=== PATIENT | female | born 1970 | race Caucasian/White ===

== ENCOUNTER → 2024-09-16 | Outpatient (CLI) | payer OTHER, SELFPAY ==
[2024-09-16 17:48] LABS: Absolute Lymphocyte Count 2.15 X10^3/uL (0.83-4.51); Basophil# 0.04 X10^3/uL; Basophil% 0.6 % (0-1); Eosinophil# 0.19 X10^3/uL; Eosinophils% 2.7 % (0-5); Hematocrit 41.1 % (37-47); Hemoglobin 13.8 g/dL (12.0-15.0); Lymphocyte # 2.15 X10^3/ul (0.83-4.51); Mean Corp Hgb Conc 33.6 g/dL (32-36); Mean Corpuscular Hgb 30.1 pg (27.0-32.0); Mean Corpuscular Volume 89.5 fL (81-99); Mean Platelet Vol. 8.8 fl (6.2-12.0); Monocyte# 0.51 X10^3/uL; Monocyte% 7.4 % (0-10); NRBC Flagged by Analyzer 0 % (0-5); Neutrophil # 4.03 X10^3/uL (2.7-7.7); Neutrophil % 58.2 % (47-70); Platelet Count 306 K/mm3 (150-450); RBC Distribution Width CV 12.6 % (11.6-14.6); Red Blood Count 4.59 M/mm3 (4.2-5.4); White Blood Count 6.9 K/mm3 (4.4-11.0)
[2024-09-16 18:08] LABS: Erythrocyte Sedimentation Rate 2 mm/hr (0-30)
[2024-09-16 18:32] LABS: ALB/GLOB Ratio 1.8 RATIO (0.9-2.4); AST(SGOT) 25 U/L (<=31); Alanine Aminotransfer ALT/SGPT 18 U/L (<=34); Albumin, Serum 4.6 g/dL (3.5-5.0); Alkaline Phosphatase 60 U/L (35-104); Anion Gap 13 (5-15); BUN 12 mg/dL (4-19); BUN/Creat Ratio 16.8 RATIO (10-20); Calcium,Total 9.8 mg/dL (7.6-11.0); Carbon Dioxide 24.4 mmol/L (21.0-32.0); Chloride 103 mmol/L (98-108); Creatinine, Serum 0.71 mg/dL (0.70-1.20); EST Glomerular Filtration Rate 101 (>60); Globulin 2.6 g/dL (2.2-4.2); Glucose 89 mg/dL (70-99); Potassium 3.8 mmol/L (3.3-5.1); Protein, Total 7.2 g/dL (5.9-8.4); Sodium Level 141 mmol/L (133-145); Thyroid Stim Hormone (TSH) 0.978 uIU/mL (0.300-4.200); Total Bilirubin 0.55 mg/dL (0.00-1.30); Vitamin B12 586 pg/mL (180-914)
[2024-09-16 18:54] LABS: CRP < 3.00 mg/L (0.0-3.0)
[2024-09-16 19:39] LABS: LDH 184 U/L (84-246)
[2024-09-19 14:08] LABS: EBV Acute VCA IgM < 36.0 U/mL (0.0-35.9); EBV Nuclear Antigen IgG > 600.0 U/mL (0.0-17.9); EBV-VCA IgG 89.4 U/mL (0.0-17.9)
== END | disposition home or self-care (01) ==
LOC: MTLAB 14:17
PROVIDERS: PCP Internal Medicine; Referring Provider Internal Medicine; Visit Provider Internal Medicine
DX: R53.83 Other fatigue (principal); I89.0 Lymphedema, not elsewhere classified
CPT/HCPCS: 36415; 80053; 82607; 83615; 84439; 84443; 84481; 85025; 85652; 86140; 86664; 86665

== ENCOUNTER → 2025-01-27 | Outpatient (CLI) | payer OTHER, SELFPAY ==
--- NOTE | 2025-01-27 13:32 | MRI_ITS ---
PROCEDURE: BRAIN W/WO CONTRAST 01/27/2025 REASON FOR EXAM: CHRONIC HEADACHES TECHNIQUE: Multiplanar and multisequential MRI of the brain was performed without and with IV gadolinium based contrast administration. CONTRAST: Clariscan VOLUME: 12 mL COMPARISON: None. FINDINGS: Ventricular and sulcal size and configuration are within normal limits. No intracranial mass lesion or pathologic enhancement. No evidence of intracranial hemorrhage, extra-axial collection, or other acute abnormality. Prominent benign perivascular space in the left inferior basal ganglia region. Preserved major intracranial vascular flow voids. Few scattered small foci of T2 FLAIR hyperintensity in the supratentorial white matter, which are nonspecific but commonly seen in the setting of migraine headaches, or minimal leukoaraiosis. Orbital contents appear normal. Mild peripheral mucosal thickening throughout the paranasal sinuses. No mastoid effusions. Grossly unremarkable skull base and calvarium. MRI/Brain W/WO Contrast IMPRESSION: No acute intracranial abnormality. No mass or pathologic enhancement. Few scattered foci of T2 FLAIR hyperintensity in the cerebral white matter, non specific but commonly seen in the setting of migraine headaches. Reading Location: [id number]
== END | disposition home or self-care (01) ==
LOC: MRI 13:23
PROVIDERS: PCP Internal Medicine; Referring Provider Internal Medicine; Visit Provider Internal Medicine
DX: R51.9 Headache, unspecified (principal)
CPT/HCPCS: 70553; A9575

== ENCOUNTER → 2025-06-20 | Outpatient (CLI) | payer OTHER, SELFPAY ==
--- NOTE | 2025-06-20 16:04 | BD_ITS ---
PROCEDURE: DEXA BONE DENSITY STUDY 06/20/2025 REASON FOR EXAM: F, age 54 y/o . Patient is postmenopausal TECHNIQUE: Procedure Code: BDDBD Modality: DX Procedure: DEXA BONE DENSITY STUDY COMPARISON: None FINDINGS: BMD and T-SCORES Lumbar spine: 0.958 g/cm2, T-score -0.8 Levels: L1 through L4 Left femoral neck: 0.594 g/cm2, T-score -2.3 Left total hip: 0.735 g/cm2, T-score -1.7 Right femoral neck: 0.603 g/cm2, T-score -2.2 Right total hip: 0.740 g/cm2, T-score -1.7 The World Health Organization has defined the following categories based on bone density: Normal bone density: T-score equal to or greater than -1.0 Osteopenia: T-score between -1.0 and -2.5 Osteoporosis: T-score equal to or less than -2.5 FRAX (or Comparable) Fracture Risk Assessment: 10 Year Probability of Fracture: Major Osteoporotic Fracture: 12% Hip Fracture: 2.2% (Note: FRAX is not to be reported in setting of normal range bone density, osteoporosis on DEXA, known history of osteoporosis, prior osteoporotic hip or vertebral fracture, or for any patient undergoing pharmacological treatment for bone loss.) The National Osteoporosis Foundation (NOF) recommends pharmacological treatment for patients with a FRAX 10-year risk of 3% or higher for a hip fracture, or 20% or higher for a major osteoporotic fracture, to prevent osteoporosis and reduce fracture risk. The patient does meet the pharmacological treatment recommendations for prevention of osteoporosis. BD/Dexa Bone Density Study IMPRESSION: OSTEOPENIA. Recommend follow-up in 1 year. Reading Location: [id number]
== END | disposition home or self-care (01) ==
LOC: OPBD 16:02
PROVIDERS: PCP Internal Medicine; Referring Provider Internal Medicine; Visit Provider Internal Medicine
DX: Z13.820 Encounter for screening for osteoporosis (principal); Z78.0 Asymptomatic menopausal state
CPT/HCPCS: 77080

== ENCOUNTER → 2025-06-20 | Outpatient (CLI) | payer OTHER, SELFPAY ==
--- OUTSIDE RECORDS SUMMARY | 2025-06-20 17:31 | XMS RPT_ITS | CCD ---
Author Organization [facility] Care Team Providers Care Dermatology Specialist Name Role Phone Nola Galeas Unavailable Unavailable Unavailable Dr. Enrrique Elizabeth Attending Unavailable Maximilian, Dr. Edwards Referring Unavailable GUDELIA, Dr. NOLA MILES Primary Care UnavailHONG Lara Attending Unavailable HONG MANZO Referring Unavailable GUDELIA, Dr. NOLA MILES Primary Care Unavailabl e GUDELIA, Dr. NOLA MILES Attending Unavailabl e GUDELIA, Dr. NOLA MILES Referring Unavailabl e RONZA, Dr. NOLA MILES Primary Care Unavailabl e GUDELIA, Dr. NOLA MILES Attending Unavailabl e GUDELIA, Dr. NOLA MILES Referring Unavailabl e GUDELIA, Dr. NOLA MILES Primary Care Unavailabl e GUDELIA, Dr. NOLA MILES Attending Unavailabl e GUDELIA, Dr. NOLA MILES Referring Unavailabl e RONRICHARDK, Dr. NOLA MILES Primary Care Unavailabl e GUDELIA, Dr. NOLA MILES Attending Unavailabl e GUDELIA, Dr. NOLA MILES Primary Care UnavailHONG Lara Attending Unavailable HONG MANZO Referring Unavailable GUDELIA, Dr. NOLA MILES Primary Care Unavailabl e RonNola negrete DO Primary Care Provider [phone] Nola Galeas DO Unavailable NOLA GALEAS Attending Unavailable NOLA GALEAS Referring Unavailable NOLA GALEAS Primary Care Unavailable NOLA GALEAS Referring Unavailable NOLA GALEAS Primary Care Unavailable NOLA GALEAS Primary Care Unavailable Michael MEDEL, Dr. Dlecid Primary Care Provider [phone] Richi Rodriguez DO Attending Provider Fast DO, Dr. Delcid Referring Provider NOLA GALEAS Attending Unavailable NOLA GALEAS Primary Care Unavailable Fast DO, Dr. Delcid Primary Care Provider [phone] Fast DO, Dr. Delcid Attending Provider [phone] Fast DO, Dr. Delcid Referring Provider Fast DO, Richi Ponce Primary Care Provider [phone] ANGEL, VJ Referring Unavailable ANGEL, VJ Attending Unavailable ANGEL, VJ Referring Unavailable ANGEL, VJ Attending Unavailable FAST, RICHI Primary Care Unavailable Fast, Richi Primary Care Unavailable Fast, Richi Attending Unavailable Fast, Richi Referring Unavailable Fast, Richi Attending Unavailable Fast, Richi Referring Unavailable Fast, Richi Primary Care Unavailable Fast, Richi Attending Unavailable Fast, Richi Referring Unavailable Fast, Richi Primary Care Unavailable Medications Current Medications Medication Drug Class(es) Dates Sig (Normalized) Sig (Original) hydroCHLOROthiazide 12.5 mg oral capsule (20 sources) Thiazide Diuretic Start: 4 End: 4 take 1 capsule by mouth once daily hydroCHLOROthiazide (Microzide) 12.5 mg capsule Indications: Benign hypertension Take 1 capsule (12.5 mg) by mouth once daily. 90 capsule 1 04/01/2024 Active Start: 06-10-2023 take 1 capsule by [facility] once daily hydroCHLOROthiazide (Microzide) 12.5 mg capsule Indications: Benign hypertension Take 1 capsule (12.5 mg) by mouth once daily. 90 capsule 1 06/10/2023 Active Start: 12-18-2020 End: 11-26-2022 take 1 capsule by mouth once daily hydroCHLOROthiazide (Microzide) 12.5 mg capsule Indications: Benign hypertension Take 1 capsule (12.5 mg) by mouth once daily. 90 capsule 1 11/26/2022 Active multivitamin tablet (5 sources) multivitamin tab let Take by mouth. Active multivitamin tab let Take by mouth. 0 Active omeprazole 20 mg delayed release oral tablet (5 sources) Proton Pump Inhibitor take 1 tablet by mouth once daily omeprazole (PriLOSEC) 20 mg tablet,delayed release (DR/EC) EC tablet Indications: gastroesophageal reflux disease Take 1 tablet (20 mg) by mouth once daily. Active tretinoin 0.5 mg/ml topical cream (16 sources) Retinoid Start: tretinoin (Retin-A) 0.05 % cream apply as directed BY PHYSICIAN 12/10/2021 Active Start: 12-10-2021 Tretinoin 0.05 % External Cream apply as directed BY PHYSICIAN Quantity: 45 Refills: 0 Ordered: 14-Dec-2021 DO Start : 10-Dec-2021 Active Completed/Discontinued Medications Medication Drug Class(es) Dates Sig (Normalized) Sig (Original) cephalexin 500 mg oral capsule (9 sources) Cephalosporin Antibacterial Start: 12-04-2021 take 1 capsule by mouth once daily Cephalexin 500 MG Oral Capsule TAKE 1 CAPSULE EVERY 12 HOURS DAILY. 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, Chaseun Start : 20-Oct-2021 Active ibuprofen 600 mg oral tablet (1 source) Nonsteroidal Anti-inflammatory Drug Start: 03-02-2021 take 1 tablet by mouth three times daily at mealtime Ibuprofen 600 MG Oral Tablet take 1 tablet three times a day with meals Quantity: 30 Refills: 0 Ordered: 02-Mar-2021 DO Start : 02-Mar-2021 Complete Multi-Vitamin TABS (20 sources) Multi-Vitamin TA BS Quantity: 0 Refills: 0 Ordered: 22-Oct-2020 DO Active nitrofurantoin, macrocrystals 25 mg / nitrofurantoin, monohydrate 75 mg oral capsule (9 sources) Nitrofuran Antibacterial Start: 09-29-2021 take 1 capsule by mouth twice daily Nitrofurantoin Monohyd Macro 100 MG Oral Capsule 1 pill twice a day until gone Quantity: 14 Refills: 0 Ordered: 29-Sep-2021 Hong Manzo DO Start : 29-Sep-2021 Active phenazopyridine hydrochloride 200 mg oral tablet (7 sources) Start: 10-17-2021 take 1 tablet by mouth three times daily after mealtime as needed Pyridium 200 MG Oral Tablet TAKE 1 TABLET 3 TIMES DAILY AFTER MEALS NEEDED Quantity: 6 Refills: 0 Ordered: 17-Oct-2021 Enrrique Elizabeth MD Start : 17-Oct-2021 Active Problems Active Problems Problem Classification Problem Date Documented Date Episodic/Chronic Deficiency and other anemia (20 sources) Anemia; Translations: [Anemia, unspecified] Episodic Esophageal disorders (6 sources) Gastroesophageal reflux disease without esophagitis; Translations: [Gastro-esophageal reflux disease without esophagitis] Onset: 11-26-2022 11-26-2022 Chronic Essential hypertension (20 sources) Benign hypertension; Translations: [Benign essential hypertension] Onset: 11-26-2022 11-26-2022 Chronic Genitourinary symptoms and ill-defined conditions (20 sources) Dysuria; Translations: [Dysuria] Episodic Headache; including migraine (1 source) Headache; including migraine; Translations: [Headache, unspecified] Onset: 02-02-2025 Immunizations and screening for infectious disease (20 sources) Tuberculosis screening status; Translations: [Screening examination for pulmonary tuberculosis] Onset: 05-19-2022 Episodic Nonspecific chest pain (20 sources) Chest pain; Translations: [Chest pain, unspecified] Episodic Other circulatory disease (20 sources) Elevated blood-pressure reading without diagnosis of hypertension; Translations: [Elevated blood pressure reading without diagnosis of hypertension] Episodic Other endocrine disorders (20 sources) Disorder of pituitary gland; 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 Normal coronary anatomy without evidence of atherosclerotic changes or stenotic disease.; Other upper respiratory disease (5 sources) Chronic rhinitis; Translations: [Chronic rhinitis] Onset: 04-07-2025 04-07-2025 Chronic Other upper respiratory disease (1 source) Chronic rhinitis; Translations: [Chronic rhinitis] Onset: 04-07-2025 Chronic Other upper respiratory disease (5 sources) Deviated nasal septum; Translations: [Deviated nasal septum] Onset: 04-07-2025 04-07-2025 Episodic Other upper respiratory disease (5 sources) Hypertrophy of nasal turbinates; Translations: [Hypertrophy of nasal turbinates] Onset: 04-07-2025 04-07-2025 Episodic Other upper respiratory disease (1 source) Deviated nasal septum; Translations: [Deviated nasal septum] Onset: 04-07-2025 Episodic Other upper respiratory disease (1 source) Hypertrophy of nasal turbinates; Translations: [Hypertrophy of nasal turbinates] Onset: 04-07-2025 Episodic Other upper respiratory infections (20 sources) Acute maxillary sinusitis; Translations: [Acute maxillary sinusitis] Episodic Residual codes; unclassified (20 sources) History of bilateral breast implants; Translations: [Breast replacement] Chronic Residual codes; unclassified (1 source) Breast implant status; Translations: [Breast implant status] Onset: 03-13-2023 Chronic Residual codes; unclassified (20 sources) Past history of procedure; Translations: [Other specified personal history presenting hazards to health] Episodic Comment on above: [01/08/2021]: Normal Echocardiogram. The left ventricular systolic function is normal with a 55-60% estimated ejection fraction. Normal cardiac chamber dimensions.; Residual codes; unclassified (1 source) Asymptomatic menopausal state; Translations: [Asymptomatic menopausal state] Onset: 05-08-2025 Episodic Sprains and strains (20 sources) Lower back injury; Translations: [Sprain of lumbar] Episodic Unclassified (1 source) Unknown / UNK(Unknown) Onset: 10-16-2017 Unclassified (1 source) Patient encounter status 04-20-2024 Urinary tract infections (20 sources) Acute urinary tract infection; Translations: [Urinary tract infection, site not specified] Episodic Past or Other Problems Problem Classification Problem Date Documented Da te Episodic/Chronic Malaise and fatigue (1 source) Other fatigue; Translations: [Other fatigue] Onset: 09-23-2024 Episodic Residual codes; unclassified (3 sources) H/O: urinary anomaly; Translations: [Personal history of unspecified urinary disorder] Resolved: 05-30-2019 Episodic Residual codes; unclassified (3 sources) History of chest pain; Translations: [Personal history of other specified diseases] Resolved: 09-24-2020 Episodic Unclassified (4 sources) Onset: 03-27-2023 Resolved: 04-01-2024 03-27-2023 Results Test Name Value Interpretation Reference Range Facility CT MAXILLOFACIAL WO IV CONTR Devin 04-11-2025 CT MAXILLOFACIAL WO IV CONTRAST Patient Name: HAYDE CARMONA : 1970 Exam Date/Time: 04/07/2025 16:43 Procedure: CT MAXILLOFACIAL WO IV CONTRAST Ordering Provider: WHITTINGTON MARK Reason For Exam: rhinitis chronic HISTORY: Chronic sinusitis Axial scans of the paranasal sinuses were performed with coronal and sagittal reconstructions. Dose reduction was employed with automated exposure control. The frontal, ethmoid, and sphenoid sinuses show scattered mucosal thickening with small inferior calcifications with probable osteoma medial left frontal sinus. There is trace rightward nasal septal deviation. Bilateral patricia bullosa. Mild bilateral degenerative changes TMJs. Periapical bone resorption about right maxillary molar tooth. Maxillary sinuses show bilateral mucosal thickening, right greater than left. IMPRESSION: 1. There is evidence of chronic pansinusitis as discussed. Report Dictated on Electronically Signed By: Josh Gaines MD Electronically Signed Date/Time: 04/11/2025 4:42 PM EDT Joel protocol Maxillary sinus pressure Loss of smell- chronic Sx: dev septum 2007 Normal [facility] Brain W/WO Contraston 2024 Brain W/WO Contrast [facility] [address] [place] [id number] Brain W/WO Contrast MR#: [id number] Acct: [id number] Name: HAYDE CARMONA ANN Rep #: [id number] : 1970 F 54 From: Quinn Sánchez MD PCP: Dr. Richi Rodriguez DO Status: REG CLI Study: Brain W/WO Contrast Date of Exam: 01/27/25 Exam# [id number] Ordering Dr: Richi Rodriguez DO PROCEDURE: BRAIN W/WO CONTRAST 01/27/2025 REASON FOR EXAM: CHRONIC HEADACHES TECHNIQUE: Multiplanar and multisequential MRI of the brain was performed without and with IV gadolinium based contrast administration. CONTRAST: Clariscan VOLUME: 12 mL COMPARISON: None. FINDINGS: Ventricular and sulcal size and configuration are within normal limits. No intracranial mass lesion or pathologic enhancement. No evidence of intracranial hemorrhage, extra-axial collection, or other acute abnormality. Prominent benign perivascular space in the left inferior basal ganglia region. Preserved major intracranial vascular flow voids. Few scattered small foci of T2 FLAIR hyperintensity in the supratentorial white matter, which are nonspecific but commonly seen in the setting of migraine headaches, or minimal leukoaraiosis. Orbital contents appear normal. Mild peripheral mucosal thickening throughout the paranasal sinuses. No mastoid effusions. Grossly unremarkable skull base and calvarium. MRI/Brain W/WO Contrast IMPRESSION: No acute intracranial abnormality. No mass or pathologic enhancement. Few scattered foci of T2 FLAIR hyperintensity in the cerebral white matter, nonspecific but commonly seen in the setting of migraine headaches. Reading Location: [id number] CC: Dr. 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 Richi Rodriguez DO Status: REG CLI Study:Brain W/WO Contrast Date of Exam: 01/27/25 Exam# [id number] Ordering Dr: Lulu Rodriguez ra, DO PROCEDURE: BRAIN W/WO CONTRAST 01/27/2025 REASON FOR EXAM: CHRONIC HEADACHES TECHNIQUE: Multiplanar and multisequential MRI of the brain was performed without and with IV gadolinium based contrast administration. CONTRAST: Clariscan VOLUME: 12 mL COMPARISON: None. FINDINGS: Ventricular and sulcal size and configuration are within normal limits. No intracranial mass lesion or pathologic enhancement. No evidence of intracranial hemorrhage, extra-axial collection, or other acute abnormality. Prominent benign perivascular space in the left inferior basal ganglia region. Preserved major intracranial vascular flow voids. Few scattered small foci of T2 FLAIR hyperintensity in the supratentorial white matter, which are nonspecific but commonly seen in the setting of migraine headaches, or minimal leukoaraiosis. Orbital contents appear normal. Mild peripheral mucosal thickening throughout the paranasal sinuses. No mastoid effusions. Grossly unremarkable skull base and calvarium. MRI/Brain W/WO Contrast IMPRESSION: No acute intracranial abnormality. No mass or pathologic enhancement. Few scattered foci of T2 FLAIR hyperintensity in the cerebral white matter, nonspecific but commonly seen in the setting of migraine headaches. Reading Location: [id number] CC: Dr. 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 [place], [place], [id number] EBV Ab VCA, IgM < 36.0 Normal 0.0-35.9 [facility] Comment on above: Result Comment: Nega tive <36.0 Equivocal 36.0 - 43.9 Positive >43.9 Performed By: #### L 501.6710, L100.0100, L501.12383, L500.4050, L3100.5850, L101.9900, L504.2610, L501.9520, L506.0400, L503.0106 #### [facility] [address] [place], [place], [phone] (021) EBV NuAg Ab,IgG > 600.0 High 0.0-17.9 [facility] Comment on above: Result Comment: Nega tive <18.0 Equivocal 18.0 - 21.9 Positive >21.9 Performed By: #### L 501.6710, L100.0100, L501.07400, L500.4050, L3100.5850, L101.9900, L504.2610, L501.9520, L506.0400, L503.0106 #### [facility] [address] [place], [place], [id number] INTERPRETATION Comment Normal . [facility] Comment on above: Result Comment: EBV Interpretation Chart Flores: Antibody Present + Antibody Absent - Interpretation VCA-IgM VCA-IgG EBNA-IgG No previous infection/ - - - Susceptible Primary infection (new + + - or recent) Past Infection +or- + + See comment below* + - - *Results indicate infection with EBV at some time however cannot predict the timing of the infection since antibodies to EBNA usually develop after primary infection or, alternatively, approximately 5-10% of patients with EBV never develop antibodies to EBNA. Performed at: [address] [id number] Publication Specialist: Papito Ruffin PhD, Phone: [phone] Performed By: #### L 501.6710, L100.0100, L501.80005, L500.4050, L3100.5850, L101.9900, L504.2610, L501.9520, L506.0400, L503.0106 #### [facility] [address] [place], [place], [phone] Absolute neutrophil countOrd ered By: Richi Fast on 09-16-2024 Neutrophils (Bld) [#/Vol] 4.0 10*3/uL 2.0-7.7 [facility] Anion gap in Serum or Plasma Ordered By: Richi Fast on 09-16-2024 Anion gap [Moles/Vol] 13 mmol/L 5-15 [facility] BUN/creatinine ratioOrdered By: Richi Fast on 09-16-2024 Urea nitrogen/Creatinine [Mass ratio] 16.8 mg/mg 10- [facility] Basophil percentageOrdered B y: Richi Fast on 09-16-2024 Basophils/100 WBC (Bld) 0.6 % 0-1 [facility] Bilirubin, totalOrdered By: Richi Fast on 09-16-2024 Bilirubin [Mass/Vol] 0.55 mg/dL 0.00-1.30 [facility] CBC W/Diff, Automatedon 08-28 Absolute Lymph 2.15 X10 3/uL Normal 0.83-4.51 [facility] Comment on above: Performed By: #### L 501.6710, L100.0100, L501.20657, L500.4050, L3100.5850, L101.9900, L504.2610, L501.9520, L506.0400, L503.0106 #### [facility] [address] [place], [place], [phone] (439) Absolute Neut 4.0 X10 3/uL Normal 2.0-7.7 [facility] Comment on above: Performed By: #### L 501.6710, L100.0100, L501.93125, L500.4050, L3100.5850, L101.9900, L504.2610, L501.9520, L506.0400, L503.0106 #### [facility] [address] [place], [place], [phone] ([phone] Basophils/100 WBC (Bld) 0.6 % Normal 0-1 [facility] Comment on above: Performed By: #### L 501.6710, L100.0100, L501.26741, L500.4050, L3100.5850, L101.9900, L504.2610, L501.9520, L506.0400, L503.0106 #### [facility] [address] [place], [address] Eosinophils/100 WBC (Bld) 2.7 % Normal 0-5 [facility] Comment on above: Performed By: #### L 501.6710, L100.0100, L501.35267, L500.4050, L3100.5850, L101.9900, L504.2610, L501.9520, L506.0400, L503.0106 #### [facility] [address] [place], [address] Erythrocyte distribution width (RBC) [Ratio] 12.6 % Normal 11.6-14.6 [facility] Comment on above: Performed By: #### L 501.6710, L100.0100, L501.76905, L500.4050, L3100.5850, L101.9900, L504.2610, L501.9520, L506.0400, L503.0106 #### [facility] [address] [facility] [facility] [place], [place], [phone] (120) Hematocrit (Bld) [Volume fraction] 41.1 % Normal 37-47 [facility] Comment on above: Performed By: #### L 501.6710, L100.0100, L501.46201, L500.4050, L3100.5850, L101.9900, L504.2610, L501.9520, L506.0400, L503.0106 #### [facility] [address] [facility] [place], [place], [phone] (458) Hemoglobin (Bld) [Mass/Vol] 13.8 g/dL Normal 12.0-15.0 [facility] Comment on above: Performed By: #### L 501.6710, L100.0100, L501.30102, L500.4050, L3100.5850, L101.9900, L504.2610, L501.9520, L506.0400, L503.0106 #### [facility] [address] [place], [address] IG% 0.100 Normal 0.0-0.9 [facility] Comment on above: Result Comment: IG% - Immature Granulocytes (promyelocytes, myelocytes and metamyelocytes) > 1% indicates that a LEFT SHIFT is Present. Performed By: #### L 501.6710, L100.0100, L501.66689, L500.4050, L3100.5850, L101.9900, L504.2610, L501.9520, L506.0400, L503.0106 #### [facility] [address] [facility] [place], [address] Lymphocytes/100 WBC (Bld) 31.0 % Normal 19-41 [facility] Comment on above: Performed By: #### L 501.6710, L100.0100, L501.09266, L500.4050, L3100.5850, L101.9900, L504.2610, L501.9520, L506.0400, L503.0106 #### [facility] [address] [address] [place], [place], [phone] MCH (RBC) [Entitic mass] 30.1 pg Normal 27.0-32.0 [facility] Comment on above: Performed By: #### L 501.6710, L100.0100, L501.01129, L500.4050, L3100.5850, L101.9900, L504.2610, L501.9520, L506.0400, L503.0106 #### [facility] [address] [address] [place], [place], [phone] MCHC (RBC) [Mass/Vol] 33.6 g/dL Normal 32-36 [facility] Comment on above: Performed By: #### L 501.6710, L100.0100, L501.66465, L500.4050, L3100.5850, L101.9900, L504.2610, L501.9520, L506.0400, L503.0106 #### [facility] [address] [facility] [place], [address] MCV (RBC) [Entitic vol] 89.5 fL Normal 81-99 [facility] Comment on above: Performed By: #### L 501.6710, L100.0100, L501.41641, L500.4050, L3100.5850, L101.9900, L504.2610, L501.9520, L506.0400, L503.0106 #### [facility] [address] [place], [address] Monocytes/100 WBC (Bld) 7.4 % Normal 0-10 [facility] Comment on above: Performed By: #### L 501.6710, L100.0100, L501.00722, L500.4050, L3100.5850, L101.9900, L504.2610, L501.9520, L506.0400, L503.0106 #### [facility] [address] [place], [address] Neutrophils/100 WBC (Bld) 58.2 % Normal 47-70 [facility] Comment on above: Performed By: #### L 501.6710, L100.0100, L501.99951, L500.4050, L3100.5850, L101.9900, L504.2610, L501.9520, L506.0400, L503.0106 #### [facility] [address] [place], [address] Nucleated RBC (Bld) [#/Vol] 0 10*3/uL Normal 0-5 [facility] Comment on above: Performed By: #### L 501.6710, L100.0100, L501.90825, L500.4050, L3100.5850, L101.9900, L504.2610, L501.9520, L506.0400, L503.0106 #### [facility] [address] [place], [address] Platelet mean volume (Bld) [Entitic vol] 8.8 fL Normal 6.2-12.0 [facility] Comment on above: Performed By: #### L 501.6710, L100.0100, L501.63089, L500.4050, L3100.5850, L101.9900, L504.2610, L501.9520, L506.0400, L503.0106 #### [facility] [address] [place], [address] Platelets (Bld) [#/Vol] 306 10*3/uL Normal 150-450 [facility] Comment on above: Performed By: #### L 501.6710, L100.0100, L501.83065, L500.4050, L3100.5850, L101.9900, L504.2610, L501.9520, L506.0400, L503.0106 #### [facility] [address] [place], [place], [id number] (271) RBC (Bld) [#/Vol] 4.59 10*6/uL Normal 4.2-5.4 [facility] Comment on above: Performed By: #### L 501.6710, L100.0100, L501.26024, L500.4050, L3100.5850, L101.9900, L504.2610, L501.9520, L506.0400, L503.0106 #### [facility] [address] [place], [address] RDW SD 41.0 fl Normal 35.1-43.9 [facility] Comment on above: Performed By: #### L 501.6710, L100.0100, L501.16474, L500.4050, L3100.5850, L101.9900, L504.2610, L501.9520, L506.0400, L503.0106 #### [facility] [address] [place], [place], [id number] WBC (Bld) [#/Vol] 6.9 10*3/uL Normal 4.4-11.0 [facility] Comment on above: Performed By: #### L 501.6710, L100.0100, L501.21705, L500.4050, L3100.5850, L101.9900, L504.2610, L501.9520, L506.0400, L503.0106 #### [facility] [address] [place], [place], [id number] CRPon 09-16-2024 C-REACTIVE PROT < 3.00 Normal 0.0-3.0 [facility] Comment on above: Performed By: #### L 501.6710, L100.0100, L501.95870, L500.4050, L3100.5850, L101.9900, L504.2610, L501.9520, L506.0400, L503.0106 #### [facility] [address] [place], [place], [id number] CRP [Mass/Vol]Ordered By: De bra Fast on 09-16-2024 C-Reactive Protein Extended Range < 3.00 mg/L 0.0-3.0 [facility] Carbon dioxide, total [Moles /volume] in Central venous bloodOrdered By: Richi Fast on 09-16-2024 CO2 [Moles/Vol] 24.4 mmol/L 21.0-32.0 [facility] Chloride assayOrdered By: bra Fast on 09-16-2024 Chloride [Moles/Vol] 103 mmol/L 98-108 [facility] Comprehensive Metabolic Prof ilon 09-16-2024 Albumin [Mass/Vol] 4.6 g/dL Normal 3.5-5.0 [facility] Comment on above: Performed By: #### L 501.6710, L100.0100, L501.13886, L500.4050, L3100.5850, L101.9900, L504.2610, L501.9520, L506.0400, L503.0106 #### [facility] [address] [place], [address] Albumin/Globulin [Mass ratio] 1.8 {ratio} Normal 0.9-2.4 [facility] Comment on above: Performed By: #### L 501.6710, L100.0100, L501.19531, L500.4050, L3100.5850, L101.9900, L504.2610, L501.9520, L506.0400, L503.0106 #### [facility] [address] [place], [place], [id number] (029) ALK PHOS 60 U/L Normal 35-104 [facility] Comment on above: Performed By: #### L 501.6710, L100.0100, L501.36166, L500.4050, L3100.5850, L101.9900, L504.2610, L501.9520, L506.0400, L503.0106 #### [facility] [address] [place], [place], [id number] (103) ALT [Catalytic activity/Vol] 18 U/L Normal <=34 [facility] Comment on above: Performed By: #### L 501.6710, L100.0100, L501.73098, L500.4050, L3100.5850, L101.9900, L504.2610, L501.9520, L506.0400, L503.0106 #### [facility] [address] [place], [address] AST [Catalytic activity/Vol] 25 U/L Normal <=31 [facility] Comment on above: Performed By: #### L 501.6710, L100.0100, L501.46973, L500.4050, L3100.5850, L101.9900, L504.2610, L501.9520, L506.0400, L503.0106 #### [facility] [address] [place], [address] Bilirubin [Mass/Vol] 0.55 mg/dL Normal 0.00-1.30 [facility] Comment on above: Performed By: #### L 501.6710, L100.0100, L501.04635, L500.4050, L3100.5850, L101.9900, L504.2610, L501.9520, L506.0400, L503.0106 #### [facility] [address] [place], [address] BUN/CRE 16.8 RATIO Normal 10-20 [facility] Comment on above: Performed By: #### L 501.6710, L100.0100, L501.04990, L500.4050, L3100.5850, L101.9900, L504.2610, L501.9520, L506.0400, L503.0106 #### [facility] [address] [place], [address] Calcium [Mass/Vol] 9.8 mg/dL Normal 7.6-11.0 [facility] Comment on above: Performed By: #### L 501.6710, L100.0100, L501.37804, L500.4050, L3100.5850, L101.9900, L504.2610, L501.9520, L506.0400, L503.0106 #### [facility] [address] [place], [address] Chloride [Moles/Vol] 103 mmol/L Normal 98-108 [facility] Comment on above: Performed By: #### L 501.6710, L100.0100, L501.86116, L500.4050, L3100.5850, L101.9900, L504.2610, L501.9520, L506.0400, L503.0106 #### [facility] [address] [place], [place], [id number] CO2 [Moles/Vol] 24.4 mmol/L Normal 21.0-32.0 [facility] Comment on above: Performed By: #### L 501.6710, L100.0100, L501.73351, L500.4050, L3100.5850, L101.9900, L504.2610, L501.9520, L506.0400, L503.0106 #### [facility] [address] [place], [place], [id number] (073) Creatinine [Mass/Vol] 0.71 mg/dL Normal 0.70-1.20 [facility] Comment on above: Performed By: #### L 501.6710, L100.0100, L501.93411, L500.4050, L3100.5850, L101.9900, L504.2610, L501.9520, L506.0400, L503.0106 #### [facility] [address] [place], [place], [id number] GAP 13 Normal 5-15 [facility] Comment on above: Performed By: #### L 501.6710, L100.0100, L501.10028, L500.4050, L3100.5850, L101.9900, L504.2610, L501.9520, L506.0400, L503.0106 #### [facility] [address] [facility] [place], [place], [id number] GFR/1.73 sq M.predicted among non-blacks MDRD (S/P/Bld) [Vol rate/Area] 101 mL/min/{1.73_m2} Normal >60 [facility] Comment on above: Result Comment: mL/m in/1.73m2 CKD-EPI Creatinine Equation (2020) Performed By: #### L 501.6710, L100.0100, L501.84028, L500.4050, L3100.5850, L101.9900, L504.2610, L501.9520, L506.0400, L503.0106 #### [facility] [address] [place], [address] Globulin (S) [Mass/Vol] 2.6 g/dL Normal 2.2-4.2 [facility] Comment on above: Performed By: #### L 501.6710, L100.0100, L501.57684, L500.4050, L3100.5850, L101.9900, L504.2610, L501.9520, L506.0400, L503.0106 #### [facility] [address] [place], [address] Glucose [Mass/Vol] 89 mg/dL Normal 70-99 [facility] Comment on above: Performed By: #### L 501.6710, L100.0100, L501.07512, L500.4050, L3100.5850, L101.9900, L504.2610, L501.9520, L506.0400, L503.0106 #### [facility] [address] [place], [address] Potassium [Moles/Vol] 3.8 mmol/L Normal 3.3-5.1 [facility] Comment on above: Performed By: #### L 501.6710, L100.0100, L501.65655, L500.4050, L3100.5850, L101.9900, L504.2610, L501.9520, L506.0400, L503.0106 #### [facility] [address] [place], [address] Sodium [Moles/Vol] 141 mmol/L Normal 133-145 [facility] Comment on above: Performed By: #### L 501.6710, L100.0100, L501.45320, L500.4050, L3100.5850, L101.9900, L504.2610, L501.9520, L506.0400, L503.0106 #### [facility] [address] [facility] [place], [address] T PROT 7.2 g/dL Normal 5.9-8.4 [facility] Comment on above: Performed By: #### L 501.6710, L100.0100, L501.36819, L500.4050, L3100.5850, L101.9900, L504.2610, L501.9520, L506.0400, L503.0106 #### [facility] [address] [facility] [address] [place], [place], [id number] Urea nitrogen [Mass/Vol] 12 mg/dL Normal 4-19 [facility] Comment on above: Performed By: #### L 501.6710, L100.0100, L501.85039, L500.4050, L3100.5850, L101.9900, L504.2610, L501.9520, L506.0400, L503.0106 #### [facility] [address] [facility] [place], [place], [id number] EBV capsid IgM Qn (S)Ordered By: Richi Rodriguez on 09-16-2024 Gui-Pizano Virus Capsid Ag IgM Ab < 36.0 U/mL 0.0-35.9 [facility] Comment on above: Negative <36.0 Equiv ocal 36.0 - 43.9 Positive >43.9 EBV nuclear IgG Qn (S)Ordere d By: Richi Fast on 09-16-2024 [facility]-[employer] Ag IgG > 600.0 U/mL High 0.0-17.9 [facility] Comment on above: Negative <18.0 Equiv ocal 18.0 - 21.9 Positive >21.9 Eosinophil percentageOrdered By: Richi Rodriguez on 09-16-2024 Eosinophils/100 WBC (Bld) 2.7 % 0-5 [facility] Gui-Pizano virus (EBV) vir al capsid antigen (VCA) IgG antibody assayOrdered By: Richi Rodriguez on 09-16-2024 Gui-Pizano Virus Capsid Ag IgG Ab 89.4 U/mL High 0.0-17.9 [facility] Comment on above: Negative <18.0 Equiv ocal 18.0 - 21.9 Positive >21.9 Erythrocyte Sed Rateon 09-16 SED RATE 2 mm/hr Normal 0-30 [facility] Comment on above: Performed By: #### L 501.6710, L100.0100, L501.21160, L500.4050, L3100.5850, L101.9900, L504.2610, L501.9520, L506.0400, L503.0106 #### [facility] [address] [place], [address] Erythrocyte distribution wid th ratioOrdered By: Richi Fast on 09-16-2024 Erythrocyte distribution width (RBC) [Ratio] 12.6 % 11.6-14.6 [facility] Erythrocyte distribution wid th standard deviationOrdered By: Richi Fast on 09-16-2024 Erythrocyte distribution width (RBC) [Entitic vol] 41.0 fL 35.1-43.9 [facility] Erythrocyte sedimentation ra teOrdered By: Richi on 09-16-2024 ESR (Bld) [Velocity] 2 mm/h 0-30 [facility] Free T3on 09-16-2024 Free T3 [Mass/Vol] 3.0 pg/mL Normal 2.18-3.98 [facility] Comment on above: Performed By: #### L 501.6710, L100.0100, L501.25101, L500.4050, L3100.5850, L101.9900, L504.2610, L501.9520, L506.0400, L503.0106 #### [facility] [address] [place], [address] Free [id number] By: Richi Fas t on 09-16-2024 Free Triiodothyronine (T3) pg/dL 3.0 pg/mL 2.18-3.98 [facility] GFR/1.73 sq M.predicted rodolfo g non-blacks MDRD (S/P/Bld) [Vol rate/Area]Ordered By: Richi Rodriguez on 09-16-2024 Estimated GFR (MDRD) Non-Af Amer 101 >60 [facility] Comment on above: mL/min/1.73m2 CKD-EP I Creatinine Equation (2020) Hematocrit Auto (Bld) [Volum e fraction]Ordered By: Richirosario Rodriguez on 09-16-2024 Hematocrit (Bld) [Volume fraction] 41.1 % 37-47 [facility] Hemoglobin measurementOrdere d By: [facility] on 09-16-2024 Hemoglobin (Bld) [Mass/Vol] 13.8 g/dL 12.0-15.0 [facility] Immature granulocytes/100 WB C Auto (Bld)Ordered By: Richi [facility] on 09-16-2024 Immature granulocytes/100 WBC (Bld) 0.100 % 0.0-0.9 [facility] Comment on above: IG% - Immature Granu locytes (promyelocytes, myelocytes and metamyelocytes) > 1% indicates that a LEFT SHIFT is Present. Interpretation of Gui-Ba rr virus antibody panelOrdered By: Richi [facility] on 09-16-2024 Gui-Pizano Virus Ab Interpret Comment . [facility] Comment on above: EBV Interpretation Vera Hess: Antibody Present + Antibody Absent -Interpretation VCA-IgM VCA-IgG EBNA-IgGNo previous infection/ - - -SusceptiblePrimary infection (new + + -or recent)Past Infection +or- + +See comment below* + - -*Results indicate infection with EBV at some time however cannot predict the timing of the infection since antibodies to EBNA usually develop after primary infection or, alternatively, approximately 5-10% of patients with EBV never develop antibodies to EBNA.Performed at: [facility] [id number] Director: Papito Ruffin PhD, Phone: [phone] l503.0106on 09-16-2024 Cobalamin (Vitamin B12) [Mass/Vol] 586 pg/mL Normal 180-914 [facility] Comment on above: Performed By: #### L 501.5210, L100.0100, L501.47446, L500.4050, L3100.5850, L101.9900, L504.2610, L501.9520, L506.0400, L503.0106 #### [facility] [address] [facility] [address] [place], [place], [address] LDHon 09-16-2024 LDH 184 U/L Normal 84-246 [facility] Comment on above: Order Comment: 1 Performed By: #### L 501.6710, L100.0100, L501.33004, L500.4050, L3100.5850, L101.9900, L504.2610, L501.9520, L506.0400, L503.0106 #### [facility] [address] [facility] [place], [place], [id number] Laboratory - Chemistry and C hemistry - challengeOrdered By: Richi Fast on 09-16-2024 AST [Catalytic activity/Vol] 25 U/L <32 [facility] Lactate dehydrogenase (LDH) measurementOrdered By: Richi Fast on 09-16-2024 LDH [Catalytic activity/Vol] 184 U/L 84-246 [facility] Lymphocytes Auto (Unsp spec) [#/Vol]Ordered By: Richi Fast on 09-16-2024 Lymphocytes (Bld) [#/Vol] 2.15 10*3/uL 0.83-4.51 [facility] Lymphocytes/100 WBC Auto (Un sp spec)Ordered By: Richi Fast on 09-16-2024 Lymphocytes/100 WBC (Bld) 31.0 % 19-41 [facility] MCV (mean corpuscular volume ) determinationOrdered By: Richi Fast on 09-16-2024 MCV (RBC) [Entitic vol] 89.5 fL 81-99 [facility] Mean corpuscular hemoglobin (MCH) determinationOrdered By: Richi Fast on 09-16-2024 MCH (RBC) [Entitic mass] 30.1 pg 27.0-32.0 [facility] Mean corpuscular hemoglobin concentration (MCHC) determinationOrdered By: Richi Fast on 09-16-2024 MCHC (RBC) [Mass/Vol] 33.6 g/dL 32-36 [facility] Mean platelet volume determi nationOrdered By: Richi Fast on 09-16-2024 Platelet mean volume (Bld) [Entitic vol] 8.8 fL 6.2-12.0 [facility] Monocyte percentageOrdered B y: Richi Fast on 09-16-2024 Monocytes/100 WBC (Bld) 7.4 % 0-10 [facility] Neutrophil percentageOrdered By: Richi Fast on 09-16-2024 Neutrophils/100 WBC (Bld) 58.2 % 47-70 [facility] Nucleated red blood cell per centageOrdered By: Richi Fast on 09-16-2024 Nucleated RBC/100 WBC (Bld) [Ratio] 0 % 0-5 [facility] Platelet countOrdered By: De aranaz on 09-16-2024 Platelets (Bld) [#/Vol] 306 10*3/uL 150-450 [facility] Potassium (Unsp spec) [Mass/ Vol]Ordered By: on 09-16-2024 Potassium [Moles/Vol] 3.8 mmol/L 3.3-5.1 [facility] RBC Auto (Bld) [#/Vol]Ordere d By: Richi Fast on 09-16-2024 RBC (Bld) [#/Vol] 4.59 10*6/uL 4.2-5.4 [facility] Serum creatinine measurement (mass/volume)Ordered By: on 09-16-2024 Creatinine [Mass/Vol] 0.71 mg/dL 0.70-1.20 [facility] Serum globulin measurementOr dered By: Richi Fast on 09-16-2024 Globulin (S) [Mass/Vol] 2.6 g/dL 2.2-4.2 [facility] Serum glucose measurement (m ass/volume)Ordered By: Richi on 09-16-2024 Glucose [Mass/Vol] 89 mg/dL 70-99 [facility] Serum or plasma alanine julio otransferase (ALT) measurementOrdered By: on 09-16-2024 ALT [Catalytic activity/Vol] 18 U/L <35 [facility] Serum or plasma albumin evelyn urement (mass/volume)Ordered By: Richi Fast on 09-16-2024 Albumin [Mass/Vol] 4.6 g/dL 3.5-5.0 [facility] Serum or plasma albumin/glob ulin mass ratioOrdered By: Richi Fast on 09-16-2024 Albumin/Globulin [Mass ratio] 1.8 {ratio} 0.9-2.4 [facility] Serum or plasma alkaline elizabeth sphatase measurementOrdered By: Richi on 09-16-2024 ALP [Catalytic activity/Vol] 60 U/L 35-104 [facility] Serum or plasma calcium evelyn urement (mass/volume)Ordered By: Richi Fast on 09-16-2024 Calcium [Mass/Vol] 9.8 mg/dL 7.6-11.0 [facility] Serum or plasma urea nitroge n measurement (mass/volume)Ordered By: Richi on 09-16-2024 Urea nitrogen [Mass/Vol] 12 mg/dL 4-19 [facility] Sodium levelOrdered By: a on 09-16-2024 Sodium [Moles/Vol] 141 mmol/L 133-145 [facility] T4 Free Directon 09-16-2024 T4 FREE DIRECT 1.20 ng/dL Normal 0.76-1.46 [facility] Comment on above: Performed By: #### L 501.6710, L100.0100, L501.10370, L500.4050, L3100.5850, L101.9900, L504.2610, L501.9520, L506.0400, L503.0106 #### [facility] [address] [place] [address]. [place], [place], [id number] T4 freeOrdered By: Richi Fas t on 09-16-2024 Free T4 [Mass/Vol] 1.20 ng/dL 0.76-1.46 [facility] TSH DL <= 0.005 mIU/L QnOrde red By: Richi Fast on 09-16-2024 Thyroid Stimulating Hormone (TSH) 0.978 uIU/mL 0.300-4.200 [facility] Thyroid Stim Hormone (TSH)on 09-16-2024 TSH 0.978 uIU/mL Normal 0.300-4.200 [facility] Comment on above: Performed By: #### L 501.6710, L100.0100, L501.53935, L500.4050, L3100.5850, L101.9900, L504.2610, L501.9520, L506.0400, L503.0106 #### [facility] [address] [place], [place], [address] Total proteinOrdered By: Lulu ra Fast on 09-16-2024 Protein [Mass/Vol] 7.2 g/dL 5.9-8.4 [facility] Vitamin B12 ser/plasOrdered By: Richi Fast on 09-16-2024 Cobalamin (Vitamin B12) [Mass/Vol] 586 pg/mL 180-914 [facility] White blood cell (WBC) count Ordered By: Richi Fast on 09-16-2024 WBC (Bld) [#/Vol] 6.9 10*3/uL 4.4-11.0 [facility] CBC W Auto Differential pane l (Bld)on 05-16-2024 Basophils (Bld) [#/Vol] 0.04 x10*3/uL Normal 0.00-0.10 [facility] Comment on above: Performed By: #### 5 7021-8 #### GUZMAN Long ([id number]) [facility] ([facility]) [address] [place] [address] Basophils/100 WBC (Bld) 0.8 % Normal 0.0-2.0 [facility] Comment on above: Performed By: #### 5 7021-8 #### GUZMAN Long ([id number]) [facility] ([facility]) [address] [place] [address] Eosinophils (Bld) [#/Vol] 0.24 x10*3/uL Normal 0.00-0.70 [facility] Comment on above: Performed By: #### 5 7021-8 #### GUZMAN Long ([id number]) [facility] ([facility]) [address] [place] [address] Eosinophils/100 WBC (Bld) 4.9 % Normal 0.0-6.0 [facility] Comment on above: Performed By: #### 5 7021-8 #### GUZMAN Long ([id number]) [facility] ([facility]) [address] [place] [address] Erythrocyte distribution width (RBC) [Ratio] 12.7 % Normal 11.5-14.5 [facility] Comment on above: Performed By: #### 5 7021-8 #### GUZMAN Long ([id number]) [facility] ([facility]) [address] [place] [address] Hematocrit (Bld) [Volume fraction] 40.9 % Normal 36.0-46.0 [facility] Comment on above: Performed By: #### 5 7021-8 #### GUZMAN Long ([id number]) [facility] ([facility]) [address] [place] [address] Hemoglobin (Bld) [Mass/Vol] 13.5 g/dL Normal 12.0-16.0 [facility] Comment on above: Performed By: #### 5 7021-8 #### GUZMNA Long ([id number]) [facility] ([facility]) [address] [place] [address] Immature granulocytes (Bld) [#/Vol] 0.00 x10*3/uL Normal 0.00-0.70 [facility] Comment on above: Performed By: #### 5 7021-8 #### GUZMAN Long ([id number]) [facility] ([facility]) [id number] [place] [address] Immature granulocytes/100 WBC (Bld) 0.0 % Normal 0.0-0.9 [facility] Comment on above: Result Comment: Tamera ture Granulocyte Count (IG) includes promyelocytes, myelocytes and metamyelocytes but does not include bands. Percent differential counts (%) should be interpreted in the context of the absolute cell counts (cells/UL). Performed By: #### 5 7021-8 #### GUZMAN Long ([id number]) [facility] ([facility]) [address] [place] [address] Lymphocytes (Bld) [#/Vol] 1.91 x10*3/uL Normal 1.20-4.80 [facility] Comment on above: Performed By: #### 5 7021-8 #### GUZMAN Long ([id number]) [facility] ([facility]) [address] [place] [address] Lymphocytes/100 WBC (Bld) 39.0 % Normal 13.0-44.0 [facility] Comment on above: Performed By: #### 5 7021-8 #### GUZMAN Long ([id number]) [facility] ([facility]) [address] [place] [address] MCH (RBC) [Entitic mass] 30.2 pg Normal 26.0-34.0 [facility] Comment on above: Performed By: #### 5 7021-8 #### GUZMAN Long ([id number]) [facility] ([facility]) [address] [place] [address] MCHC (RBC) [Mass/Vol] 33.0 g/dL Normal 32.0-36.0 [facility] Comment on above: Performed By: #### 5 7021-8 #### GUZMAN Long ([id number]) [facility] ([facility]) [address] [place] [address] MCV (RBC) [Entitic vol] 92 fL Normal 80-100 [facility] Comment on above: Performed By: #### 5 7021-8 #### GUZMAN Long ([id number]) [facility] ([facility]) [address] [place] [address] Monocytes (Bld) [#/Vol] 0.36 x10*3/uL Normal 0.10-1.00 [facility] Comment on above: Performed By: #### 5 7021-8 #### GUZMAN Long ([id number]) [facility] ([facility]) [address] [place] [address] Monocytes/100 WBC (Bld) 7.3 % Normal 2.0-10.0 [facility] Comment on above: Performed By: #### 5 7021-8 #### GUZMAN Long ([id number]) [facility] ([facility]) [address] [place] [address] Neutrophils (Bld) [#/Vol] 2.35 x10*3/uL Normal 1.20-7.70 [facility] Comment on above: Result Comment: Perc ent differential counts (%) should be interpreted in the context of the absolute cell counts (cells/uL). Performed By: #### 5 7021-8 #### GUZMAN Long ([id number]) [facility] ([facility]) [id number] [place] [address] Neutrophils/100 WBC (Bld) 48.0 % Normal 40.0-80.0 [facility] Comment on above: Performed By: #### 5 7021-8 #### GUZMAN Long ([id number]) [facility] ([facility]) [id number] [place] [address] Nucleated RBC/100 WBC (Bld) [Ratio] 0.0 /100 WBCs Normal 0.0-0.0 [facility] Comment on above: Performed By: #### 5 7021-8 #### GUZMAN Long ([id number]) [facility] ([facility]) [address] [place] [address] Platelets (Bld) [#/Vol] 303 x10*3/uL Normal 150-450 [facility] Comment on above: Performed By: #### 5 7021-8 #### GUZMAN Long ([id number]) [facility] ([facility]) [address] [place] [address] RBC (Bld) [#/Vol] 4.47 x10*6/uL Normal 4.00-5.20 [facility] Comment on above: Performed By: #### 5 7021-8 #### GUZMAN Long ([id number]) [facility] ([facility]) [address] [place] [address] WBC (Bld) [#/Vol] 4.9 x10*3/uL Normal 4.4-11.3 [facility] Comment on above: Performed By: #### 5 7021-8 #### GUZMAN Long ([id number]) [facility] ([facility]) [id number] [place] [address] Comprehensive metabolic 2000 panelon 05-16-2024 Albumin BCP dye [Mass/Vol] 4.4 g/dL Normal 3.4-5.0 [facility] Comment on above: Performed By: #### 2 4323-8 #### GUZMAN Long ([id number]) [facility] ([facility]) [address] [place] [address] ALP [Catalytic activity/Vol] 50 U/L Normal 33-110 [facility] Comment on above: Performed By: #### 2 4323-8 #### GUZMAN Long ([id number]) [facility] ([facility]) [id number] [place] [address] 15658 ALT With P-5'-P [Catalytic activity/Vol] 6 U/L Low 7-45 [facility] Comment on above: Result Comment: [place] ents treated with Sulfasalazine may generate falsely decreased results for ALT. Performed By: #### 2 4323-8 #### GUZMAN Long ([id number]) [facility] ([facility]) [id number] [place] [address] Anion gap [Moles/Vol] 11 mmol/L Normal 10-20 [facility] Comment on above: Performed By: #### 2 4323-8 #### GUZMAN Long ([id number]) [facility] ([facility]) [address] [place] [address] 23398 AST With P-5'-P [Catalytic activity/Vol] 14 U/L Normal 9-39 [facility] Comment on above: Performed By: #### 2 4323-8 #### GUZMAN ZHAO L ([id number]) [facility] ([facility]) [address] [place] [address] Bilirubin [Mass/Vol] 0.8 mg/dL Normal 0.0-1.2 [facility] Comment on above: Performed By: #### 2 4323-8 #### GUZMAN ZHAO L ([id number]) [facility] ([facility]) [address] [place] [address] Calcium [Mass/Vol] 10.0 mg/dL Normal 8.6-10.6 [facility] Comment on above: Performed By: #### 2 4323-8 #### GUZMAN ZHAO L ([id number]) [facility] ([facility]) [id number] [place] [address] Chloride [Moles/Vol] 105 mmol/L Normal 98-107 [facility] Comment on above: Performed By: #### 2 4323-8 #### GUZMAN ZHAO L ([id number]) [facility] ([facility]) [address] [place] [address] CO2 [Moles/Vol] 31 mmol/L Normal 21-32 [facility] Comment on above: Performed By: #### 2 4323-8 #### GUZMAN ZHAO L ([id number]) [facility] ([facility]) [address] [place] [address] Creatinine [Mass/Vol] 0.70 mg/dL Normal 0.50-1.05 [facility] Comment on above: Performed By: #### 2 4323-8 #### GUZMAN NEWMOTZER L ([id number]) [facility] ([facility]) [address] [place] [address] GFR/1.73 sq M.predicted MDRD (S/P/Bld) [Vol rate/Area] mL/min/{1.73_m2} Normal >60 [facility] Comment on above: Result Comment: Calc ulations of estimated GFR are performed using the 2020 CKD-EPI Study Refit equation without the race variable for the IDMS-Traceable creatinine methods. https://jasn.asnjournals.org/content//ASN.23299 82995 Performed By: #### 2 4323-8 #### GUZMAN Long ([id number]) [facility] ([facility]) [address] [place] [address] Glucose [Mass/Vol] 103 mg/dL High 74-99 [facility] Comment on above: Performed By: #### 2 4323-8 #### GUZMAN Long ([id number]) [facility] ([facility]) [address] [place] [address] Potassium [Moles/Vol] 4.2 mmol/L Normal 3.5-5.3 [facility] Comment on above: Performed By: #### 2 4323-8 #### GUZMAN Long ([id number]) [facility] ([facility]) [address] [place] [address] Protein [Mass/Vol] 6.6 g/dL Normal 6.4-8.2 [facility] Comment on above: Performed By: #### 2 4323-8 #### GUZMAN Long ([id number]) [facility] ([facility]) [address] [place] [address] Sodium [Moles/Vol] 143 mmol/L Normal 136-145 [facility] Comment on above: Performed By: #### 2 4323-8 #### GUZMAN ZHAO L ([id number]) [facility] ([facility]) [address] [place] [address] Urea nitrogen [Mass/Vol] 12 mg/dL Normal 6-23 [facility] Comment on above: Performed By: #### 2 4323-8 #### GUZMAN ZHAO L ([id number]) [facility] ([facility]) [address] [place] [address] Lipid 1996 panelon 4 Cholesterol [Mass/Vol] 172 mg/dL Normal 0-199 Un [facility] Comment on above: Result Comment: Age Desirable Borderline High High 0-19 Y 0 - 169 170 - 199 >/= 200 20-24 Y 0 - 189 190 - 224 >/= 225 >24 Y 0 - 199 200 - 239 >/= 240 All ranges are based on fasting samples. Specific therapeutic targets will vary based on patient-specific cardiac risk. Pediatric guidelines reference:Pediatrics 2011, 128(S5).Adult guidelines reference: NCEP ATPIII Guidelines,LIZABETH 2001, 258:2486-97 Venipuncture immediately after or during the administration of Metamizole may lead to falsely low results. Testing should be performed immediately prior to Metamizole dosing. Performed By: #### 2 4331-1 #### GUZMAN Long ([id number]) [facility] ([facility]) [address] [place] [address] Cholesterol in HDL [Mass/Vol] 76.0 mg/dL Normal [facility] Comment on above: Result Comment: Age Very Low Low Normal High 0-19 Y < 35 < 40 40-45 ---- 20-24 Y ---- < 40 >45 ---- >24 Y ---- < 40 40-60 >60 Performed By: #### 2 4331-1 #### GUZMAN Long ([id number]) [facility] ([facility]) [address] [place] [address] Cholesterol in LDL [Mass/Vol] 85 mg/dL Normal <=99 [facility] Comment on above: Result Comment: Near Borderline AGE Desirable Optimal High High Very High 0-19 Y 0 - 109 --- 110-129 >/= 130 ---- 20-24 Y 0 - 119 --- 120-159 >/= 160 ---- >24 Y 0 - 99 100-129 130-159 160-189 >/=190 Performed By: #### 2 4331-1 #### GUZMAN Long ([id number]) [facility] ([facility]) [address] [place] [address] Cholesterol in VLDL [Mass/Vol] 11 mg/dL Normal 0-40 [facility] Comment on above: Performed By: #### 2 4331-1 #### GUZMAN Long ([id number]) [facility] ([facility]) [address] [place] [address] CHOLESTEROL/HDL RATIO 2.3 Normal [facility] Comment on above: Result Comment: Ref Values Desirable < 3.4 High Risk > 5.0 Performed By: #### 2 4331-1 #### GUZMAN Long ([id number]) [facility] ([facility]) [address] [place] [address] NON HDL CHOLESTEROL 96 mg/dL Normal 0-149 [facility] Comment on above: Result Comment: Age Desirable Borderline High High Very High 0-19 Y 0 - 119 120 - 144 >/= 145 >/= 160 20-24 Y 0 - 149 150 - 189 >/= 190 ---- >24 Y 30 mg/dL above LDL Cholesterol goal Performed By: #### 2 4331-1 #### GUZMAN Long ([id number]) [facility] ([facility]) [id number] [place], [place] [address] Triglyceride [Mass/Vol] 56 mg/dL Normal 0-149 [facility] Comment on above: Result Comment: Age Desirable Borderline High Very High SEX:B mg/dL mg/dL mg/dL mg/dL <=14D 86-277 ---- ---- ---- 15D-365D 55-277 ---- ---- ---- 1Y-9Y 0-74 75-99 >=100 ---- 10Y-19Y 0-89 90-129 >=130 ---- 20Y-24Y 0-114 115-149 >=150 ---- >= 25Y 0-149 150-199 200-499 >=500 Venipuncture immediately after or during the administration of Metamizole may lead to falsely low results. Testing should be performed immediately prior to Metamizole dosing. Performed By: #### 2 4331-1 #### GUZMAN Long ([id number]) [facility] ([facility]) [address] [place] [address] BI MAMMO BILATERAL SCREENING TOMOSYNTHESISon 04-20-2024 BI MAMMO BILATERAL SCREENING TOMOSYNTHESIS Interpreted By: Jimbo Hanson, STUDY: BI MAMMO BILATERAL SCREENING TOMOSYNTHESIS; 04/20/2024 3:00 pm ACCESSION NUMBER(S): [id number] ORDERING CLINICIAN: NOLA GALEAS INDICATION: Screening. ,Z12.31 Encounter for screening mammogram for malignant neoplasm of breast COMPARISON: 03/13/2023, 03/12/2020 FINDINGS: 2D and tomosynthesis images were reviewed at 1 mm slice thickness. Density: There are scattered areas of fibroglandular density. Standard and implant displaced views were obtained. There are retropectoral saline implants noted. No suspicious masses or calcifications are identified. IMPRESSION: No mammographic evidence of malignancy. BI-RADS CATEGORY: BI-RADS Category: 1 Negative. Recommendation: Annual Screening. Recommended Date: 1 Year. Laterality: Bilateral. For any future breast imaging appointments, please call [phone]). MACRO: None Signed by: Jimbo Hanson 04/25/2024 11:30 AM Dictation workstation: [id number] [facility] DIGITAL MAMM SCREENING W/ TO Klein 03-13-2023 DIGITAL MAMM SCREENING W/ THA Patient Name: HAYDE CARMONA STUDY: DIGITAL MAMM SCREENING W/ THA; 03/13/2023 8:12 am ACCESSION NUMBER(S): [id number] ORDERING CLINICIAN: NOLA GALEAS INDICATION: Screening. Bilateral breast implants. COMPARISON: 03/12/2022, 11/05/2020, 06/02/2019 FINDINGS: 2D and tomosynthesis images were reviewed at 1 mm slice thickness. Bilateral subpectoral saline implants. Standard and implant displaced views were obtained. There are areas of scattered fibroglandular tissue. No suspicious masses or calcifications are identified. IMPRESSION: No mammographic evidence of malignancy. BI-RADS CATEGORY: Category: 1 - Negative. Recommendation: 1 Year Screening. For any future breast imaging appointments, please call [phone]). Patient letter sent SNORM Electronically signed by: NOAH PANTOJA MD Normal [facility] COMPREHENSIVE PANELon 2021 Albumin [Mass/Vol] 4.5 g/dL Normal 3.4 - 5.0 [facility] Comment on above: Performed By: #### C MP #### [facility] [address] [place] [address] ALP [Catalytic activity/Vol] 53 U/L Normal 33 - 110 [facility] Comment on above: Performed By: #### C MP #### [facility] [address] [place] [address] ALT [Catalytic activity/Vol] 11 U/L Normal 7 - 45 [facility] Comment on above: Result Comment: [place] ents treated with Sulfasalazine may generate falsely decreased results for ALT. Performed By: #### C MP #### [facility] [address] [place] [address] Anion gap [Moles/Vol] 12 mmol/L Normal 10 - 20 [facility] Comment on above: Performed By: #### C MP #### [facility] [address] [place] [address] AST [Catalytic activity/Vol] 16 U/L Normal 9 - 39 [facility] Comment on above: Performed By: #### C MP #### [facility] [address] [place] [address] Bilirubin [Mass/Vol] 1.0 mg/dL Normal 0.0 - 1.2 [facility] Comment on above: Performed By: #### C MP #### [facility] [address] [place] [address] Calcium [Mass/Vol] 9.5 mg/dL Normal 8.6 - 10.6 [facility] Comment on above: Performed By: #### C MP #### [facility] [address] [place] [address] Chloride [Moles/Vol] 106 mmol/L Normal 98 - 107 [facility] Comment on above: Performed By: #### C MP #### [facility] [address] [place] [address] Creatinine [Mass/Vol] 0.76 mg/dL Normal 0.50 - 1.05 [facility] Comment on above: Performed By: #### C MP #### [facility] [address] [place] [address] eGFR FEMALE >90 Normal >90 [facility] Comment on above: Result Comment: CALC ULATIONS OF ESTIMATED GFR ARE PERFORMED USING THE 2020 CKD-EPI STUDY REFIT EQUATION WITHOUT THE RACE VARIABLE FOR THE IDMS-TRACEABLE CREATININE METHODS. https://jasn.asnjournals.org/content//ASN.99130 97328 Performed By: #### C MP #### [facility] [address] [place] [address] Glucose [Mass/Vol] 93 mg/dL Normal 74 - 99 [facility] Comment on above: Performed By: #### C MP #### [facility] [address] [place] [address] HCO3 (Bld) [Moles/Vol] 28 mmol/L Normal 21 - 32 [facility] Comment on above: Performed By: #### C MP #### [facility] [address] [place] [address] Potassium [Moles/Vol] 4.1 mmol/L Normal 3.5 - 5.3 [facility] Comment on above: Performed By: #### C MP #### [facility] [address] [place] [address] Protein [Mass/Vol] 6.6 g/dL Normal 6.4 - 8.2 [facility] Comment on above: Performed By: #### C MP #### [facility] [address] [place] [address] Sodium [Moles/Vol] 142 mmol/L Normal 136 - 145 [facility] Comment on above: Performed By: #### C MP #### [facility] [address] [place] [address] Urea nitrogen [Mass/Vol] 14 mg/dL Normal 6 - 23 [facility] Comment on above: Performed By: #### C MP #### [facility] [address] [place] [address] LIPID PANEL (CORONARY RISK 2 )on 05-19-2022 Cholesterol [Mass/Vol] 186 mg/dL Normal 0 - 199 [facility] Comment on above: Result Comment: . AGE DESIRABLE BORDERLINE HIGH HIGH 0-19 Y 0 - 169 170 - 199 >/= 200 20-24 Y 0 - 189 190 - 224 >/= 225 >24 Y 0 - 199 200 - 239 >/= 240 All ranges are based on fasting samples. Specific therapeutic targets will vary based on patient-specific cardiac risk. . Pediatric guidelines reference:Pediatrics 2011, 128(S5). Adult guidelines reference: NCEP ATPIII Guidelines, LIZABETH 2001, 258:2486-97 . Venipuncture immediately after or during the administration of Metamizole may lead to falsely low results. Testing should be performed immediately prior to Metamizole dosing. Performed By: #### L IPID #### [facility] [address] [place] [address] Cholesterol in HDL [Mass/Vol] 82.0 mg/dL Normal [facility] Comment on above: Result Comment: . AGE VERY LOW LOW NORMAL HIGH 0-19 Y < 35 < 40 40-45 ---- 20-24 Y ---- < 40 >45 ---- >24 Y ---- < 40 40-60 >60 . Performed By: #### L IPID #### [facility] [address] [place] [address] Cholesterol in LDL [Mass/Vol] 95 mg/dL Normal 0 - 99 [facility] Comment on above: Result Comment: . NEAR BORD AGE DESIRABLE OPTIMAL HIGH HIGH VERY HIGH 0-19 Y 0 - 109 --- 110-129 >/= 130 ---- 20-24 Y 0 - 119 --- 120-159 >/= 160 ---- >24 Y 0 - 99 100-129 130-159 160-189 >/=190 . Performed By: #### L IPID #### [facility] [address] [place] [address] Cholesterol in VLDL [Mass/Vol] 9 mg/dL Normal 0 - 40 [facility] Comment on above: Performed By: #### L IPID #### [facility] [address] [place] [address] Cholesterol.total/Chol esterol in HDL [Mass ratio] 2.3 {ratio} Normal [facility] Comment on above: Result Comment: REF VALUES DESIRABLE < 3.4 HIGH RISK > 5.0 Performed By: #### L IPID #### [facility] [address] [place] [address] Triglyceride [Mass/Vol] 45 mg/dL Normal 0 - 149 [facility] Comment on above: Result Comment: . AGE DESIRABLE BORDERLINE HIGH HIGH VERY HIGH 0 D-90 D 19 - 174 ---- ---- ---- 91 D- 9 Y 0 - 74 75 - 99 >/= 100 ---- 10-19 Y 0 - 89 90 - 129 >/= 130 ---- 20-24 Y 0 - 114 115 - 149 >/= 150 ---- >24 Y 0 - 149 150 - 199 200- 499 >/= 500 . Venipuncture immediately after or during the administration of Metamizole may lead to falsely low results. Testing should be performed immediately prior to Metamizole dosing. Performed By: #### L IPID #### [facility] [address] [place] [address] Laboratory - Chemistry and C hemistry - challengeon 05-19-2022 Albumin BCP dye [Mass/Vol] 4.5 g/dL 3.4 - 5.0 [facility] Work Phone: ALP [Catalytic activity/Vol] 53 U/L 33 - 110 [facility] Work Phone: ALT With P-5'-P [Catalytic activity/Vol] 11 U/L 7 - 45 [facility] Work Phone: Comment on above: Patients treated wit h Sulfasalazine may generate falsely decreased results for ALT. Anion gap [Moles/Vol] 12 mmol/L 10 - 20 - [facility] Work Phone: AST With P-5'-P [Catalytic activity/Vol] 16 U/L 9 - 39 [facility] Work Phone: Bilirubin [Mass/Vol] 1.0 mg/dL 0.0 - 1.2 [facility] Work Phone: Calcium [Mass/Vol] 9.5 mg/dL 8.6 - 10.6 -[facility] Work Phone: Chloride [Moles/Vol] 106 mmol/L 98 - 107 [facility] Work Phone: CO2 [Moles/Vol] 28 mmol/L 21 - 32 -[employer] [facility] Work Phone: Creatinine [Mass/Vol] 0.76 mg/dL See Below [facility] Work Phone: Comment on above: Reference Range: 0.5 0 - 1.05 Glucose [Mass/Vol] 93 mg/dL 74 - 99 [facility] Work Phone: Potassium [Moles/Vol] 4.1 mmol/L 3.5 - 5.3 [facility] Work Phone: Protein [Mass/Vol] 6.6 g/dL 6.4 - 8.2 -[facility] Work Phone: Sodium [Moles/Vol] 142 mmol/L 136 - 145 -[facility] Work Phone: Urea nitrogen [Mass/Vol] 14 mg/dL 6 - 23 [facility] Work Phone: Laboratory - Cytologyon 04-30 Cytology report Cyto stain.thin prep Doc (Cvx/Vag) [facility] Work Phone: Lipid Panelon 05-19-2022 Cholesterol [Mass/Vol] 186 mg/dL 0 - 199 [facility] Work [facility]: Comment on above: . AGE DESIRABLE BORD VINCENT HIGH HIGH 0-19 Y 0 - 169 170 - 199 >/= 200 20-24 Y 0 - 189 190 - 224 >/= 225 >24 Y 0 - 199 200 - 239 >/= 240 All ranges are based on fasting samples. Specific therapeutic targets will vary based on patient-specific cardiac risk.. Pediatric guidelines reference:Pediatrics 2011, 128(S5). Adult guidelines reference: NCEP ATPIII Guidelines, ILZABETH 2001, 258:2486-97. Venipuncture immediately after or during the administration of Metamizole may lead to falsely low results. Testing should be performed immediately prior to Metamizole dosing. Cholesterol in HDL [Mass/Vol] 82.0 mg/dL [facility] Work Phone: Comment on above: . AGE VERY LOW LOW N ORMAL HIGH 0-19 Y < 35 < 40 40-45 ---- 20-24 Y ---- < 40 >45 ---- >24 Y ---- < 40 40-60 >60. Cholesterol in LDL [Mass/Vol] 95 mg/dL 0 - 99 [facility] Work Phone: Comment on above: . NEAR BORD AGE NIKO RABLE OPTIMAL HIGH HIGH VERY HIGH 0-19 Y 0 - 109 --- 110-129 >/= 130 ---- 20-24 Y 0 - 119 --- 120-159 >/= 160 ---- >24 Y 0 - 99 100-129 130-159 160-189 >/=190. Cholesterol.total/Chol esterol in HDL [Mass ratio] 2.3 {ratio} [facility] Work Phone: Comment on above: REF VALUESDESIRABLE < 3.4HIGH RISK > 5.0 Triglyceride [Mass/Vol] 45 mg/dL 0 - 149 [facility] Work Phone: Comment on above: . AGE DESIRABLE BORD VINCENT HIGH HIGH VERY HIGH 0 D-90 D 19 - 174 ---- ---- ----91 D- 9 Y 0 - 74 75 - 99 >/= 100 ---- 10-19 Y 0 - 89 90 - 129 >/= 130 ---- 20-24 Y 0 - 114 115 - 149 >/= 150 ---- >24 Y 0 - 149 150 - 199 200- 499 >/= 500. Venipuncture immediately after or during the administration of Metamizole may lead to falsely low results. Testing should be performed immediately prior to Metamizole dosing. Lipid Panel 9 mg/dL 0 - 40 [facility] Work Phone: No Panel Informationon 05-19 >90 >90 [facility] Work Phone: Comment on above: CALCULATIONS OF REMEDIOS MATED GFR ARE PERFORMED USING THE 2020 CKD-EPI STUDY REFIT EQUATION WITHOUT THE RACE VARIABLE FOR THE IDMS-TRACEABLE CREATININE METHODS.https://jasn.asnjournals.org/content/early/A SN.0262990173 PHQ-2 VITALSon 05-19-2022 Adult depression screening assessment No [facility] Work Phone: Mamm - Screening Mammogram w / Tomosynthesison 03-12-2022 MG Breast Screening Normal [facility] Work Phone: Office Visiton 01-22-2022 Follow-up visit Diagnoses/Problems Benign hypertension (401.1) (I10) Orders Benign hypertension Renew: hydroCHLOROthiazide 12.5 MG Oral Capsule; TAKE ONE CAPSULE BY MOUTH EVERY DAY Comprehensive Metabolic Panel; Status:Active; Requested for:[id number]; Lipid Panel; Status:Active; Requested for:[id number]; Patient Discussion/Summary If you develop UTI symptoms, and even if you are seen at another urgent care, call and I will refer you to urology. See me again in 4 months. Get blood test done AFTER FASTING, close to next visit. Provider Impressions 1. Benign hypertension: Quiana on hydrochlorothiazide 12.5 mg once daily. 2. Hematuria: Told her that if she has UTI symptoms that return or if she has more hematuria again especially she needs to let me know because she will need referral for urology as she has had 2 bouts of significant hematuria. The first bout was definitely in relation to a cystitis. She should see me again in 4 months and blood work was ordered.1 1 Amended By: Nola Galeas; Mar 03 2022 4:40 PM ESTChief Complaint follow up visit for hypertension management. AC History of Present IllnessShe has not had any 1 UTI symptoms 1 since October. 1 from August to October she had been going 1 to Urgent care Gone to the urgent care twice in September and once in November several episodes with gross hematuria She had twice been given cephalexin. She is 1 not having any burning or pain with urination She 1 has not noticed any 1 hematuria since her last episode from the urgent care She denies lower abdominal pain or pressure. Denies any loss of urinary continence. 1 she has gotten herself into a routine with taking 1 her HCTZ bp is very good today she has been checking her bp at home 120-130 / 90's she denies any side effects from hctz no chest pain no sob She has 1 no leg edema1 1 Amended By: Nola Galeas; Mar 03 2022 4:36 PM ESTActive Problems Abnormal EKG (794.31) (R94.31) Acute myofascial strain of lumbar region, initial encounter (847.2) (S39.012A) Acute non-recurrent maxillary sinusitis (461.0) (J01.00) Acute UTI (599.0) (N39.0) Anemia (285.9) (D64.9) Arthralgia of toe of left foot (719.47) (M25.572) Benign hypertension (401.1) (I10) Cervical cancer screening (V76.2) (Z12.4) Chest pain (786.50) (R07.9) Dysuria (788.1) (R30.0) Elevated blood pressure reading without diagnosis of hypertension (796.2) (R03.0) Encounter for screening for cardiovascular disorders (V81.2) (Z13.6) Encounter for screening mammogram for breast cancer (V76.12) (Z12.31) Exposure to COVID-19 virus (V01.79) (Z20.822) Exposure to TB (V01.1) (Z20.1) Hematuria (599.70) (R31.9) Hip pain, right (719.45) (M25.551) History of bilateral breast implants (V43.82) (Z98.82) 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 Normal coronary anatomy without evidence of atherosclerotic changes or stenotic disease. History of echocardiogram (V15.89) (Z92.89) [01/08/2021]: Normal Echocardiogram. The left ventricular systolic function is normal with a 55-60% estimated ejection fraction. Normal cardiac chamber dimensions. Surgical History History of Breast Surgery Enlargement Procedure Bilateral 1999. History of Cervical Loop Electrosurgical Excision (LEEP) History of Corneal LASIK Bilateral History of Nasal Septal Deviation Repair History of Tonsillectomy Social History Former smoker (V15.82) (Z87.891) smoked a half a pack a day for 3 years. quit 1994. Allergies No Known Drug Allergies Recorded By: Didi Sanabria; 08/28/2016 2:14:28 PM Current Meds Medication NameInstruction hydroCHLOROthiazide 12.5 MG Oral CapsuleTAKE ONE CAPSULE BY MOUTH EVERY DAY. Multi-Vitamin TABS Tretinoin 0.05 % External Creamapply as directed BY PHYSICIAN Tretinoin 0.05 % External Creamapply as directed BY PHYSICIAN Vitals Vital Signs Recorded: [id number] 11:52AM Heart Rate83 Vtojiwvi424 Grdzunghj18 Height5 ft 5 in Yxcsyq584 lb BMI Kvddcdbflo38.79 kg/m2 BSA Calculated1.75 Physical Exam Gen.: No acute distress HEENT: Normal. Lungs: Clear bilaterally Cardiac: Regular S1-S2 no murmur. Neuro: Cranial nerves II through XII are grossly intact. No tremor. Abdomen: Soft. Extremities: No lower extremity edema noted. Psychiatric: Mood and affect are normal. 1 1 Amended By: Nola Galeas; Mar 03 2022 4:38 PM ESTSignatures Electronically signed by : Nola Galeas DO; Mar 03 2022 4:41PM EST (Author) Normal [facility] Cult, Urineon 12-04-2021 Bacteria identified Cx Nom (U) PATIENT: HAYDE CAR[place]A [place] [facility] [id number] : 72 AGE: SEX: F ORDERED BY: HONG MANZO SOURCE: URINE [facility] Work Phone: IO HCG, Urine Test on 12-04-2021 HCG ( test) Ql (U) [facility]: [phone] IO UA (automated w/o microsc opy)on 12-04-2021 Protein (U) [Mass/Vol] 300 mg/dL Abnormal [facility]: [phone] IO UA (automated w/o microscopy) (+)small - 15 Abnormal [facility]za Work Phone: [phone] IO UA (automated w/o microscopy) Positive [facility]za Work Phone: [phone] IO UA (automated w/o microscopy) Normal (0.2-1.0 mg/dl) [facility]: [phone] IO UA (automated w/o microscopy) 6.0 1 [facility]: IO UA (automated w/o microscopy) (+++)large - 80 Abnormal [facility] Work Phone: [phone] IO UA (automated w/o microscopy) 1.030 1 Ab[facility]: [phone] IO UA (automated w/o microscopy) Negative -Urgent [facility] mirza Work Phone: [phone] IO UA (automated w/o microscopy) (+)small Abnormal -Urgent [facility] mirza Work Phone: [phone] IO UA (automated w/o microscopy) Cloudy Abnormal [facility] Work Phone: [phone] IO UA (automated w/o microscopy) Valorie Abnormal [facility] Work Phone: [phone] Office Visit (Urgent Care)on 12-04-2021 Follow-up visit Diagnoses/Problems Assessed Dysuria (788.1) (R30.0) Hematuria (599.70) (R31.9) Orders Dysuria Start: Cephalexin 500 MG Oral Capsule; TAKE 1 CAPSULE EVERY 12 HOURS DAILY Rx By: Hong Manzo; Dispense: 7 Days ; #:14 Capsule; Refill: 0;For: Dysuria; ALISSA = N; Sent To: [facility] HCG, Urine Test; Status:Resulted - Requires Verification,Retrospectiv e Authorization; Done: 04Dec2021 05:57PM Performed:In Office; Due:04Mar2022; Last Updated By:Terrie Cummings; 12/04/2021 5:57:23 PM;Ordered; For:Dysuria; Ordered By:Hong Manzo; IO UA (automated w/o microscopy); Status:Resulted - Requires Verification,Retrospectiv e Authorization; Done: 04Dec2021 05:57PM Performed:In Office; Due:04Mar2022; Last Updated By:Terrie Cummings; 12/04/2021 5:58:41 PM;Ordered; For:Dysuria; Ordered By:Hong Manzo; Hematuria Cult, Urine; Status:In Progress - Specimen/Data Collected,Retrospective Authorization; Done: 04Dec2021 Perform:Lab Services - Office to Draw (Non-Blood Test); Due:04Mar2022; Last Updated By:Terrie Cummings; 12/04/2021 5:59:32 PM;Ordered; For:Hematuria; Ordered By:Hong Manzo; Patient Discussion/Summary UTI. We will treat with Keflex. Increase rest and fluids. OTC meds as needed. Follow up with your PCP as needed. Provider Impressions UTI. We will treat with Keflex. Increase rest and fluids. OTC meds as needed. Follow up with your PCP as needed. Chief Complaint Chief Complaints Dysuria History of Present Illness Patient is a 51-year-old female with chief complaint of burning and frequency with urination since 1500 today. Patient also reports seeing blood in her urine. Patient states her current symptoms are similar to previously diagnosed UTIs. Patient states her last diagnosed UTI was September 2021. Patient denies any fevers or chills. Patient denies any nausea, vomiting, diarrhea or constipation. Patient denies any coughs, wheezing, chest pain or shortness of breath. Patient denies any uqgu-ore-ykbxtgc medication. Review of Systems Constitutional: as noted in HPI. Cardiovascular: as noted in HPI. Respiratory: as noted in HPI. Gastrointestinal: as noted in HPI. Genitourinary: as noted in HPI. Active Problems Problems Abnormal EKG (794.31) (R94.31) Acute myofascial strain of lumbar region, initial encounter (847.2) (S39.012A) Acute non-recurrent maxillary sinusitis (461.0) (J01.00) Acute UTI (599.0) (N39.0) Anemia (285.9) (D64.9) Arthralgia of toe of left foot (719.47) (M25.572) Benign hypertension (401.1) (I10) Cervical cancer screening (V76.2) (Z12.4) Chest pain (786.50) (R07.9) Dysuria (788.1) (R30.0) Elevated blood pressure reading without diagnosis of hypertension (796.2) (R03.0) Encounter for screening for cardiovascular disorders (V81.2) (Z13.6) Encounter for screening mammogram for breast cancer (V76.12) (Z12.31) Exposure to COVID-19 virus (V01.79) (Z20.822) Exposure to TB (V01.1) (Z20.1) Hematuria (599.70) (R31.9) Hip pain, right (719.45) (M25.551) History of bilateral breast implants (V43.82) (Z98.82) 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 Normal coronary anatomy without evidence of atherosclerotic changes or stenotic disease. History of echocardiogram (V15.89) (Z92.89) [01/08/2021]: Normal Echocardiogram. The left ventricular systolic function is normal with a 55-60% estimated ejection fraction. Normal cardiac chamber dimensions. Surgical History Problems History of Breast Surgery Enlargement Procedure Bilateral 1999. History of Cervical Loop Electrosurgical Excision (LEEP) History of Corneal LASIK Bilateral History of Nasal Septal Deviation Repair History of Tonsillectomy Family History Mother Family history of chronic obstructive pulmonary disease (V17.6) (Z82.5) Family history of Mini stroke Family history of Pituitary tumor Father Family history of Benign hypertension Family history of Pituitary tumor Brother Family history of Benign hypertension Paternal Grandmother Family history of malignant neoplasm of uterus (V16.49) (Z80.49) Social History Problems Former smoker (V15.82) (Z87.891) smoked a half a pack a day for 3 years. quit 1994. Allergies Medication No Known Drug Allergies Recorded By: Didi Sanabria; 08/28/2016 2:14:28 PM Current Meds Medication NameInstruction Cephalexin 500 MG Oral Capsule1 tab twice daily x 5 days hydroCHLOROthiazide 12.5 MG Oral CapsuleTAKE ONE CAPSULE BY MOUTH EVERY DAY. Multi-Vitamin TABS Nitrofurantoin Monohyd Macro 100 MG Oral Capsule1 pill twi (more content not included)... Normal [employer] Tobacco Screening.on 022 Adult depression screening assessment No [facility] Work Phone: Fall risk assessment a) No falls within the last year [facility] Work Phone: Tobacco use status CPHS b) No [facility] Work Phone: URINE CULTURE,BACTERIALon URINE CULTURE,BACTERIAL PATIENT: HAYDE CARMONA [place] [facility] [id number] : 72 AGE: SEX: F ORDERED BY: HONG MANZO SOURCE: URINE COLLECTED: 12/04/21 17:59 ANTIBIOTICS AT JANICE.: RECEIVED : 12/04/21 23:56 SITE: Unspecified R E S U L T S URINE CULTURE,BACTERIAL FINAL 12/06/21 03:05 NO SIGNIFICANT GROWTH. Normal [facility] Comment on above: Performed By: #### [facility] #### [facility] [address] [place] [address] Cult, Urineon 10-17-2021 Bacteria identified Cx Nom (U) PATIENT: HAYDE CARMONA [place] [facility] [place] [id number] : 72 AGE: SEX: F ORDERED BY: ENRRIQUE ELIZABETH SOURCE: URINE Abnormal [facility] Work Phone: IO HCG, Urine Test on 10-17-2021 HCG ( test) Ql (U) Negative [facility] Work Phone: IO UA (automated w/o microsc opy)on 10-17-2021 Protein (U) [Mass/Vol] 300 mg/dL Abnormal [facility] Work Phone: IO UA (automated w/o microscopy) (+++)large - 80 Abnormal [facility] Work Phone: IO UA (automated w/o microscopy) Positive Abnormal [facility] Work Phone: IO UA (automated w/o microscopy) 4 mg/dl Abnormal [facility] Work Phone: IO UA (automated w/o microscopy) 5.0 1 [facility] Work Phone: IO UA (automated w/o microscopy) 1.015 1 [facility] Work Phone: IO UA (automated w/o microscopy) (+)small - 15 Abnormal [facility] Work Phone: IO UA (automated w/o microscopy) (+++)large Abnormal [facility] Work Phone: IO UA (automated w/o microscopy) 100 mg/dl Abnormal [facility] Work Phone: IO UA (automated w/o microscopy) Bloody Abnormal [facility] Work Phone: IO UA (automated w/o microscopy) Red Abnormal [facility] Work Phone: Office Visit (Urgent Care)on 10-17-2021 Follow-up visit Diagnoses/Problems Assessed UTI symptoms (788.99) (R39.9) Hematuria (599.70) (R31.9) Orders Hematuria Cult, Urine; Status:In Progress - Specimen/Data Collected,Retrospective Authorization; Done: 17Oct2021 Perform:Lab Services - Office to Draw (Non-Blood Test); Due:15Jan2022; Last Updated By:Terrie Cummings; 10/17/2021 6:18:16 PM;Ordered; For:Hematuria; Ordered By:Enrrique Elizabeth; UTI symptoms Start: Pyridium 200 MG Oral Tablet (Phenazopyridine HCl); TAKE 1 TABLET 3 TIMES DAILY AFTER MEALS NEEDED Rx By: Enrrique Elizabeth; Dispense: 2 Days ; #:6 Tablet; Refill: 0;For: UTI symptoms; ALISSA = N; Sent To: [address] HCG, Urine Test; Status:Resulted - Requires Verification,Retrospectiv e Authorization; Done: 17Oct2021 06:20PM Performed:In Office; Due:15Jan2022; Last Updated By:Faby Romero; 10/17/2021 6:20:20 PM;Ordered; For:UTI symptoms; Ordered By:Enrrique Elizabeth; IO UA (automated w/o microscopy); Status:Resulted - Requires Verification,Retrospectiv e Authorization; Done: 17Oct2021 06:18PM Performed:In Office; Due:15Jan2022; Last Updated By:Faby Romero; 10/17/2021 6:20:03 PM;Ordered; For:UTI symptoms; Ordered By:Enrrique Elizabeth; Provider Impressions 1. Recurrent UTI symptoms- 3rd episode in 6 weeks, and patient has no documented bacteriuria on file. And due to frequency of urinary symptoms and quick recurrence, concern she may have a noninfectious etiology of her symptoms such as atrophic vaginitis versus interstitial cystitis versus other. For this episode we will start Azo, will check urine culture. If culture positive will send in antibiotics, if culture negative she will need to contact her primary care doctor to follow-up with urology Chief Complaint Chief Complaints Dysuria History of Present Illness 51-year-old female presents with 6 hours of initially feeling hot and cold with some nausea that quickly resolved then was followed by dysuria urinary urgency, and some gross hematuria. She not had any stomach or back pain, no vaginal discharge or symptoms. Still having regular menstrual cycles, no new sexual partners. Of note: -was seen by an outside clinic in early August for UTI symptoms, treated with Cipro. No culture was done -Was also seen here September 29 for UTI symptoms and abnormal UA she was treated with Macrobid but her urine culture was negative Active Problems Problems Abnormal EKG (794.31) (R94.31) Acute myofascial strain of lumbar region, initial encounter (847.2) (S39.012A) Acute non-recurrent maxillary sinusitis (461.0) (J01.00) Acute UTI (599.0) (N39.0) Anemia (285.9) (D64.9) Arthralgia of toe of left foot (719.47) (M25.572) Benign hypertension (401.1) (I10) Cervical cancer screening (V76.2) (Z12.4) Chest pain (786.50) (R07.9) Dysuria (788.1) (R30.0) Elevated blood pressure reading without diagnosis of hypertension (796.2) (R03.0) Encounter for screening for cardiovascular disorders (V81.2) (Z13.6) Encounter for screening mammogram for breast cancer (V76.12) (Z12.31) Exposure to COVID-19 virus (V01.79) (Z20.822) Exposure to TB (V01.1) (Z20.1) Hematuria (599.70) (R31.9) Hip pain, right (719.45) (M25.551) History of bilateral breast implants (V43.82) (Z98.82) 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 Normal coronary anatomy without evidence of atherosclerotic changes or stenotic disease. History of echocardiogram (V15.89) (Z92.89) [01/08/2021]: Normal Echocardiogram. The left ventricular systolic function is normal with a 55-60% estimated ejection fraction. Normal cardiac chamber dimensions. Surgical History Problems History of Breast Surgery Enlargement Procedure Bilateral 1999. History of Cervical Loop Electrosurgical Excision (LEEP) History of Corneal LASIK Bilateral History of Nasal Septal Deviation Repair History of Tonsillectomy Family History Mother Family history of chronic obstructive pulmonary disease (V17.6) (Z82.5) Family history of Mini stroke Family history of Pituitary tumor Father Family history of Benign hypertension Family history of Pituitary tumor Brother Family history of Benign hypertension Paternal Grandmother Family history of malignant neoplasm of uterus (V16.49) (Z80.49) Social History Problems Former smoker (V15.82) (Z87.891) smoked a half a pack a day for 3 years. quit 1994. Allergies Medication No Known Drug Allergies Recorded By: Didi Sanabria; 08/28/2016 2:14:28 PM Current Meds Medication NameInstruction hydroCHLOROthiazide 12.5 MG Oral CapsuleTAKE ONE CAPSULE BY MOUTH EVERY DAY. Multi-Vitamin TABS Nitrofurantoin Monohyd Macro 100 MG (more content not included)... Normal [employer] Tobacco Screening.on 022 Adult depression screening assessment No [facility] Work Phone: Fall risk assessment a) No falls within the last year [facility] Work Phone: Tobacco use status CPHS b) No [facility] Work Phone: URINE CULTURE,BACTERIALon URINE CULTURE,BACTERIAL PATIENT: HAYDE CARMONA LOCATION: [id number] BILL#: [id number] : 72 AGE: SEX: F ORDERED BY: ENRRIQUE ELIZABETH SOURCE: URINE COLLECTED: 10/17/21 18:18 ANTIBIOTICS AT JANICE.: RECEIVED : 10/18/21 12:53 SITE: Clean Catch/Voided R E S U L T S URINE CULTURE,BACTERIAL FINAL 10/20/21 09:33 ISOLATE1 : Escherichia coli >100,000 CFU/ML ISOLATE2 : Escherichia coli >100,000 CFU/ML SECOND MORPHOLOGY. Organism E coli E coli Antibiotic BP INTRP BP INTRP Ampicillin S S Ceftriaxone S S Cefazolin S S Ciprofloxacin S S Nitrofurantoin S S Gentamicin S R Levofloxacin S S Piperc/Tazobact S S Trimeth/Sulfa S R Amikacin S Tobramycin I ___ S=SUSCEPTIBLE I=INTERMEDIATE R=RESISTANT SDD=SUSCEPTIBLE DOSE DEPENDENT NS=NONSUSCEPTIBLE X=REPORTED IN ERROR ___ Normal [facility] Comment on above: Performed By: #### [facility] #### [facility] [address] [place] [address] Cult, Urineon 09-29-2021 Bacteria identified Cx Nom (U) PATIENT: HAYDE CARMONA [place] [facility] [place] [id number] : 72 AGE: SEX: F ORDERED BY: HONG MANZO SOURCE: URINE [facility] Work Phone: IO UA (automated w/o microsc opy)on 09-29-2021 Protein (U) [Mass/Vol] 30 mg/dL Abnormal [facility] Work Phone: IO UA (automated w/o microscopy) (+)small - 15 Abnormal [facility] Work Phone: IO UA (automated w/o microscopy) Negative [facility] Work Phone: IO UA (automated w/o microscopy) Normal (0.2-1.0 mg/dl) [facility] Work Phone: IO UA (automated w/o microscopy) 5.5 1 [facility] Work Phone: IO UA (automated w/o microscopy) (+++)large - 80 Abnormal [facility] Work Phone: IO UA (automated w/o microscopy) 1.005 1 [facility] Work Phone: IO UA (automated w/o microscopy) Turbid [facility] Work Phone: IO UA (automated w/o microscopy) Other [facility] Work Phone: Office Visit (Urgent Care)on 09-29-2021 Follow-up visit Diagnoses/Problems Assessed Acute UTI (599.0) (N39.0) Orders Acute UTI Start: Nitrofurantoin Monohyd Macro 100 MG Oral Capsule; 1 pill twice a day until gone Rx By: Hong Manzo; Dispense: 0 Days ; #:14 Capsule; Refill: 0;For: Acute UTI; ALISSA = N; [facility] UTI symptoms Cult, Urine; Status:In Progress - Specimen/Data Collected,Retrospective Authorization; Done: 29Sep2021 Perform:Lab Services - Lab To Draw (Non-Blood Test); Due:28Dec2021; Last Updated By:Hodan Flor; 09/29/2021 1:37:36 PM;Ordered; For:UTI symptoms; Ordered By:Hong Manzo; IO UA (automated w/o microscopy); Status:Resulted - Requires Verification,Retrospectiv e Authorization; Done: 29Sep2021 01:36PM Performed:In Office; Due:28Dec2021; Last Updated By:Hodan Flor; 09/29/2021 1:37:11 PM;Ordered; For:UTI symptoms; Ordered By:Hong Manzo; Patient Discussion/Summary UTI. We will treat with Macrobid. Increase rest and fluids. OTC meds as needed. Follow up with your PCP as needed. Provider Impressions UTI. We will treat with Macrobid. Increase rest and fluids. OTC meds as needed. Follow up with your PCP as needed. History of Present Illness Patient is a 51-year-old female with chief complaint of urinary symptoms that began today. Patient reports that she has burning and frequency with urnination, and has seen some blood. Patient reports that she was seen for similar difficulties 1 month ago and treated with Cipro at a different urgent care. Patient denies any fevers or chills. Patient denies any cough, wheezing, chest pain or shortness of breath. Patient denies any nausea, vomiting, diarrhea or constipation. Review of Systems Constitutional: as noted in HPI. Cardiovascular: as noted in HPI. Respiratory: as noted in HPI. Gastrointestinal: as noted in HPI. Genitourinary: as noted in HPI. Active Problems Problems Abnormal EKG (794.31) (R94.31) Acute myofascial strain of lumbar region, initial encounter (847.2) (S39.012A) Acute non-recurrent maxillary sinusitis (461.0) (J01.00) Acute UTI (599.0) (N39.0) Anemia (285.9) (D64.9) Arthralgia of toe of left foot (719.47) (M25.572) Benign hypertension (401.1) (I10) Cervical cancer screening (V76.2) (Z12.4) Chest pain (786.50) (R07.9) Dysuria (788.1) (R30.0) Elevated blood pressure reading without diagnosis of hypertension (796.2) (R03.0) Encounter for screening for cardiovascular disorders (V81.2) (Z13.6) Encounter for screening mammogram for breast cancer (V76.12) (Z12.31) Exposure to COVID-19 virus (V01.79) (Z20.822) Exposure to TB (V01.1) (Z20.1) Hip pain, right (719.45) (M25.551) History of bilateral breast implants (V43.82) (Z98.82) 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 Normal coronary anatomy without evidence of atherosclerotic changes or stenotic disease. History of echocardiogram (V15.89) (Z92.89) [01/08/2021]: Normal Echocardiogram. The left ventricular systolic function is normal with a 55-60% estimated ejection fraction. Normal cardiac chamber dimensions. Surgical History Problems History of Breast Surgery Enlargement Procedure Bilateral 1999. History of Cervical Loop Electrosurgical Excision (LEEP) History of Corneal LASIK Bilateral History of Nasal Septal Deviation Repair History of Tonsillectomy Family History Mother Family history of chronic obstructive pulmonary disease (V17.6) (Z82.5) Family history of Mini stroke Family history of Pituitary tumor Father Family history of Benign hypertension Family history of Pituitary tumor Brother Family history of Benign hypertension Paternal Grandmother Family history of malignant neoplasm of uterus (V16.49) (Z80.49) Social History Problems Former smoker (V15.82) (Z87.891) smoked a half a pack a day for 3 years. quit 1994. Allergies Medication No Known Drug Allergies Recorded By: Didi Sanabria; 08/28/2016 2:14:28 PM Current Meds Medication NameInstruction hydroCHLOROthiazide 12.5 MG Oral CapsuleTAKE ONE CAPSULE BY MOUTH EVERY DAY. Multi-Vitamin TABS Physical Exam Vital signs were reviewed. GENERAL:Patient appears well nourished and is comfortable. HEART:RRR. Has S1S2, no S3S4, rubs, clicks or murmurs. LUNGS:CTAB. Effort is normal. ABDOMEN:Soft, non-tender with normal bowel sounds. UROGENITAL:No suprapubic tenderness. No CVA tenderness to percussion. Results/Data IO UA (automated w/o microscopy)29Sep2021 01:36PMHong Manzo Test NameResultFlagReference IO ColorOther IO AppearanceTurbid IO Glucose - UrineNegative IO BilirubinNegative IO KetonesNegative IO Specific Gravity1.005 IO (more content not included)... Normal [employer] Tobacco Screening.on 022 Tobacco use status CPHS b) No [facility] Work Phone: URINE CULTURE,BACTERIALon URINE CULTURE,BACTERIAL PATIENT: HAYDE CARMONA [place] [facility] [place] [id number] : 72 AGE: SEX: F ORDERED BY: HONG MANZO SOURCE: URINE COLLECTED: 09/29/21 13:37 ANTIBIOTICS AT JANICE.: RECEIVED : 09/30/21 03:43 SITE: R E S U L T S URINE CULTURE,BACTERIAL FINAL 10/01/21 09:34 NO SIGNIFICANT GROWTH. Normal [facility] Comment on above: Performed By: #### [facility] #### [facility] [address] [place] [address] Blood Pressure Cuff Sizeon 0 09-23-2021 Adult depression screening assessment No [facility] Work Phone: Tobacco use status CPHS b) No -[facility] Work Phone: Blood Pressure Cuff Size Large -[facility] Work Phone: Office Visiton 09-23-2021 Follow-up visit Patient Discussion/Summary You need to take your blood pressure medicine consistently. Try putting meds in a few different locations where you will see it and take it. See me again in 3 months. Provider Impressions 1. Benign hypertension: Her repeat blood pressure was improved but still not ideal. Emphasized that she must start having her medicine regularly to avoid eventual complications. see me in 3 mo. Chief Complaint Follow up visit for hypertension management. AC History of Present IllnessShe saw Dr. Cheatham from cardiology. He ordered a CT angiography which did not show any coronary artery disease. cardio switched her from metoprolol to HCTZ she admits she has been spotty with taking it she does not feel she's having any negative side effects from it, she just cant remember it she says that she was the same way with control pills. no chest pain no headaches no palpitations *Active Problems Abnormal EKG (794.31) (R94.31) Acute myofascial strain of lumbar region, initial encounter (847.2) (S39.012A) Acute non-recurrent maxillary sinusitis (461.0) (J01.00) Anemia (285.9) (D64.9) Arthralgia of toe of left foot (719.47) (M25.572) Benign hypertension (401.1) (I10) Cervical cancer screening (V76.2) (Z12.4) Chest pain (786.50) (R07.9) Dysuria (788.1) (R30.0) Elevated blood pressure reading without diagnosis of hypertension (796.2) (R03.0) Encounter for screening for cardiovascular disorders (V81.2) (Z13.6) Encounter for screening mammogram for breast cancer (V76.12) (Z12.31) Exposure to COVID-19 virus (V01.79) (Z20.822) Exposure to TB (V01.1) (Z20.1) Hip pain, right (719.45) (M25.551) History of bilateral breast implants (V43.82) (Z98.82) 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 Normal coronary anatomy without evidence of atherosclerotic changes or stenotic disease. History of echocardiogram (V15.89) (Z92.89) [01/08/2021]: Normal Echocardiogram. The left ventricular systolic function is normal with a 55-60% estimated ejection fraction. Normal cardiac chamber dimensions. Surgical History History of Breast Surgery Enlargement Procedure Bilateral 1999. History of Cervical Loop Electrosurgical Excision (LEEP) History of Corneal LASIK Bilateral History of Nasal Septal Deviation Repair History of Tonsillectomy Social History Former smoker (V15.82) (Z87.891) smoked a half a pack a day for 3 years. quit 1994. Allergies No Known Drug Allergies Recorded By: Didi Sanabria; 08/28/2016 2:14:28 PM Current Meds Medication NameInstruction hydroCHLOROthiazide 12.5 MG Oral CapsuleTAKE ONE CAPSULE BY MOUTH EVERY DAY. Multi-Vitamin TABS Vitals Vital Signs Recorded: 23Sep2021 09:55AMRecorded: 23Sep2021 09:36AM Zyplgyyj220, LUE, Pkscelv352 Xegtyaitw07, LUE, Hwjcvxi13 Blood Pressure Cuff SizeLarge Tobacco Useb) No PHQ-2 #1. Over the last 2 weeks have you felt down, depressed or hopeless? (If yes, answer PHQ-9 below)No PHQ-2 #2. Over the last 2 weeks have you felt little interest or pleasure in doing things? (If yes, answer PHQ-9 below)No Heart Rate86 Height5 ft 5 in Hvvibf515 lb BMI Wxuydppfaa13.96 kg/m2 BSA Calculated1.78 Physical Exam Gen.: No acute distress HEENT: Normal. Lungs: Clear bilaterally Cardiac: Regular S1-S2 no murmur. Neuro: Cranial nerves II through XII are grossly intact. No tremor. Abdomen: Soft. Extremities: No lower extremity edema noted. Psychiatric: Mood and affect are normal. Signatures Electronically signed by : Nola Galeas DO; Oct 20 2021 8:52PM EST (Author) Normal [facility] IO UA (nonautomated w/o micr oscopy)on 05-28-2021 Protein (U) [Mass/Vol] Negative Ph [facility] 210 DO Work Phone: IO UA (nonautomated w/o microscopy) Normal (0.2-1.0 mg/dl) Pharmacis ts -Internal [facility] 210 DO Work Phone: IO UA (nonautomated w/o microscopy) Negative Pharmacists [facility] 210 DO Work Phone: IO UA (nonautomated w/o microscopy) 5.0 1 Pharmacists Internal [facility] [place] [facility] 210 DO Work Phone: IO UA (nonautomated w/o microscopy) 1.000 1 Pharmacists [facility] 210 DO Work Phone: IO UA (nonautomated w/o microscopy) Clear [facility]ists [facility] 210 DO Work Phone: IO UA (nonautomated w/o microscopy) Yellow Pharmacists [facility] 210 DO Work Phone: Laboratory - Cytologyon 05-01 Cytology report Cyto stain.thin prep Doc (Cvx/Vag) [facility] Work Phone: Tobacco Screening.on 021 Fall risk assessment a) No falls within the last year [facility] [place] Work Phone: Tobacco use status CPHS b) No [facility] [address] [place] Work Phone: CT Angio Coronary Arteries w ith Heart Flowon 01-08-2021 CT Angio Coronary Arteries with Heart Flow Normal [facility] 140 [place] Work Phone: [facility] CTA CORONARY ART WITH HEA RTFLOW IF SCORE >30%.on 01-08-2021 TH CTA CORONARY ART WITH HEARTFLOW IF SCORE >30%. Patient Name: HAYDE CARMONA STUDY: CTA CORONARY ART WITH HEARTFLOW IF SCORE >30%.; 01/08/2021 4:06 pm INDICATION: Chest pain. COMPARISON: None. ACCESSION NUMBER(S): [id number] ORDERING CLINICIAN: ANTONIETA CHEATHAM TECHNIQUE: Using multi-detector CT technology, axial, sequential imaging with prospective gating was performed of the chest following the intravenous administration of contrast material. A low-osmolar contrast agent was used ( 80 ml of Optiray 350). In addition, CT-FFR analysis was also performed. The patient was premedicated with 25 mg i.v metoprolol and 0.4 mg sublingual nitroglycerin for heart rate control and coronary dilation, respectively. For optimization of anatomic evaluation, multiplanar reconstruction, maximum intensity projections, and advanced 3-D off-line postprocessing were performed on a dedicated stand-alone workstation under the direct supervision of the interpreting physician. CT Dose-Length Product (DLP): 253.9 mGy/cm CT Dose Reduction Employed: Yes (Prospective triggering, iterative reconstruction) FINDINGS: POTENTIAL STUDY LIMITATIONS: None. CORONARY ARTERIES: CORONARY ANATOMY: There is normal origin of the coronary arteries. LEFT MAIN CORONARY ARTERY: The left main is normal sized vessel that bifurcates into the LAD and circumflex. There is no significant atherosclerotic change or stenotic disease. LEFT ANTERIOR DESCENDING ARTERY: The LAD is a normal size vessel that wraps around the apex. It gives rise to 1 acute diagonal branches. There is no significant atherosclerotic change or stenotic disease. LEFT CIRCUMFLEX ARTERY: The LCX is a normal size vessel, which is non-dominant. It gives rise to 1 obtuse marginal branches. There is no significant atherosclerotic change or stenotic disease. RIGHT CORONARY ARTERY: The RCA is a normal size vessel, which is dominant . It gives rise to a conus branch, mitali branch, and 2 acute marginal branches. In its distal segment it bifurcates into the PDA and PV branch. There is no significant atherosclerotic change or stenotic disease. CARDIAC CHAMBERS: The cardiac chambers demonstrate normal atrioventricular and ventriculoarterial concordance, and systemic and pulmonary venous return. LEFT ATRIUM: Normal size (12.83-cm2) RIGHT ATRIUM: Normal size (8-cm2) INTERATRIAL SEPTUM: Intact. LEFT VENTRICLE: Normal size (2.8-cm) RIGHT VENTRICLE: Normal size (2-cm) AORTIC VALVE: The aortic valve is trileaflet in morphology. No calcifications. MITRAL VALVE: No thickening/calcification. THORACIC AORTA: The visualized thoracic aorta is normal in course, caliber, and contour. There is no acute aortic pathology, such as dissection, intramural hematoma, or contained rupture. The aortic arch is not included on this examination. PERICARDIUM: There is no pericardial effusion of thickening. CHEST: The chest wall is normal. No significant lymphadenopathy or mass is seen in limited images of the mediastinum. Limited imaging through the lungs reveals no gross abnormalities. No pleural effusion or pneumothorax. UPPER ABDOMEN: 7.5 mm hypoattenuated lesion likely representing cysts versus hemangioma appreciated liver. Bilateral breast prosthesis appreciated. IMPRESSION: 1. Right dominant system. 2. Normal coronary anatomy without evidence of atherosclerotic changes or stenotic disease. Electronically signed by: ANTONIETA CHEATHAM MD, PHD Normal [facility] Laboratory - Chemistry and C hemistry - challengeon 12-26-2020 Anion gap [Moles/Vol] 9 mmol/L below low threshold 10 - 20 [facility] [address] [place] Work Phone: Calcium [Mass/Vol] 9.6 mg/dL 8.6 - 10.6 [facility] 140 [place] Work Phone: Chloride [Moles/Vol] 106 mmol/L 98 - 107 [facility] 140 [place] Work Phone: CO2 [Moles/Vol] 29 mmol/L 21 - 32 [facility] [place] Work Phone: Creatinine [Mass/Vol] 0.74 mg/dL See Below [facility] [place] Work Phone: Comment on above: Reference Range: 0.5 0 - 1.05 Glucose [Mass/Vol] 93 mg/dL 74 - 99 [facility] [place] Work Phone: Potassium [Moles/Vol] 4.0 mmol/L 3.5 - 5.3 [facility] [place] Work Phone: Sodium [Moles/Vol] 140 mmol/L 136 - 145 [facility] 140 [place] Work Phone: Urea nitrogen [Mass/Vol] 8 mg/dL 6 - 23 [facility] [place] Work Phone: No Panel Informationon 12-26 >60 >60 [facility] [place] Work Phone: Comment on above: CALCULATIONS OF REMEDIOS MATED GFR ARE PERFORMED USING THE MDRD STUDY EQUATION FOR THE IDMS-TRACEABLE CREATININE METHODS. CLIN CHEM 2007;53:766-72 Tobacco Screening.on 021 Fall risk assessment a) No falls within the last year [facility] [address] [place] Work Phone: Tobacco use status CPHS b) No [facility] [address] [place] Work Phone: ALLIED HEALTHon 09-24-2020 [facility] HNO ID: [id number] Author: Jovanna Long (Ct) CARA Mcclendon Service: Radiology Author Type: Clinical Insole Tack Puller Hand Type: Allied [facility] Filed: 09/24/2020 2:49 PM Note Text: Radiology Service Progress Note PATIENT NAME: Hayde Carmona DATE OF SERVICE: September 24, 2020 TIME: 2:49 PM PATIENT IDENTITY VERIFICATION COMPLETED USING TWO (2) IDENTIFIERS: Name and Date of confirmed by patient verbally and Name and Date of confirmed by identification band. FALL SCREENING: Has the patient had 2 falls in the last year or 1 fall with injury or currently using an Ambulatory Assistive Device (Walker, Cane, Wheelchair, Crutches, etc.)? Emergency Room Patient: Screened in ED PATIENT GENDER DATA: Female. status: : No status: NO. PATIENT RELEVANT IMPLANT DATA REVIEWED: Not Applicable RADIOLOGY DEPARTMENT: General X-ray: Exam(s) Completed: Chest X-Ray PERIPHERAL IV DATA: Not applicable SIGNED BY: Jovanna Mcclendon, CT September 24, 2020 2:49 PM Normal [facility] CBC and Differentialon 09-24 Abs Baso 0.03 k/uL Normal <0.11 [facility] Comment on above: Performed By: #### C BCDIF, CMP, MG1 #### [facility] Laboratory [address] [place] [address] Abs Faulk 0.29 k/uL Normal <0.87 [facility] Comment on above: Performed By: #### C BCDIF, CMP, MG1 #### [facility] [address] [place] [address] Abs Neut 4.07 k/uL Normal 1.45-7.50 [facility] Comment on above: Performed By: #### C BCDIF, CMP, MG1 #### [facility] [address] [place] [address] Absolute nRBC <0.01 Normal <0.01 [facility] Comment on above: Performed By: #### C BCDIF, CMP, MG1 #### [facility] [address] [place] [address] Basophils/100 WBC (Bld) 0.5 % Normal [facility] Comment on above: Performed By: #### C BCDIF, CMP, MG1 #### [facility] [address] [place] [address] DTYPE Auto Diff Normal [facility] Comment on above: Performed By: #### C BCDIF, CMP, MG1 #### [facility] [address] [place] [address] Eosinophils (Bld) [#/Vol] 0.07 10*3/uL Normal <0.46 [facility] Comment on above: Performed By: #### C BCDIF, CMP, MG1 #### [facility] [address] [place] [address] Eosinophils/100 WBC (Bld) 1.1 % Normal [facility] Comment on above: Performed By: #### C BCDIF, CMP, MG1 #### [facility] Laboratory [address] [place], [place] [phone] Erythrocyte distribution width (RBC) [Ratio] 12.8 % Normal 11.5-15.0 [facility] Comment on above: Performed By: #### C BCALICE CMP, MG1 #### [facility] Laboratory [address] [phone] Hematocrit (Bld) [Volume fraction] 39.9 % Normal 36.0-46.0 [facility] Comment on above: Performed By: #### C BCDIF CMP, MG1 #### [facility] Laboratory [address] [phone] Hemoglobin (Bld) [Mass/Vol] 13.2 g/dL Normal 11.5-15.5 [facility] Comment on above: Performed By: #### C BCDIF CMP, MG1 #### [facility] [address] [phone] Lymphocytes (Bld) [#/Vol] 2.13 10*3/uL Normal 1.00-4.00 [facility] Comment on above: Performed By: #### C BCDIF CMP, MG1 #### [facility] Laboratory [address] [place], [place] [phone] Lymphocytes/100 WBC (Bld) 32.2 % Normal [facility] Comment on above: Performed By: #### C BCDIF CMP, MG1 #### [facility] [address] [place], [place] [phone] MCH (RBC) [Entitic mass] 30.5 pG Normal 26.0-34.0 [facility] Comment on above: Performed By: #### C BCDIF CMP, MG1 #### [facility] Laboratory [address] [place], [place] [phone] MCHC (RBC) [Mass/Vol] 33.1 g/dL Normal 30.5-36.0 [facility] Comment on above: Performed By: #### C BCDIF, CMP, MG1 #### [facility] [address] [place], [place] [phone] MCV (RBC) [Entitic vol] 92.1 fL Normal 80.0-100.0 [facility] Comment on above: Performed By: #### C BCDIF CMP, MG1 #### [facility] [address] [facility] [phone] Monocytes/100 WBC (Bld) 4.4 % Normal [facility] Comment on above: Performed By: #### C BCDIF, CMP, MG1 #### [facility] [address] [place], [place] [phone] Neutrophils/100 WBC (Bld) 61.8 % Normal [facility] Comment on above: Performed By: #### C BCDIF, CMP, MG1 #### [facility] [address] [place], [place] [phone] NRBCs 0.0 /100 WBC Normal 0 [facility] Comment on above: Performed By: #### C BCDIF, CMP, MG1 #### [facility] [address] [place], [place] [phone] Platelet mean volume (Bld) [Entitic vol] 8.8 fL Low 9.0-12.7 [facility] Comment on above: Performed By: #### C BCDIF, CMP, MG1 #### [facility] [address] [place], [place] [phone] Platelets (Bld) [#/Vol] 265 10*3/uL Normal 150-400 [facility] Comment on above: Performed By: #### C BCDIF, CMP, MG1 #### [facility] Laboratory [address] [place] [phone] RBC (Bld) [#/Vol] 4.33 10*6/uL Normal 3.90-5.20 [facility] Comment on above: Performed By: #### C BCDIF, CMP, MG1 #### [facility] [address] [place], [place] [phone] WBC (Bld) [#/Vol] 6.61 10*3/uL Normal 3.70-11.00 [facility] Comment on above: Performed By: #### C BCDIF, CMP, MG1 #### [facility] [address] [place], [place] [phone] Comp Metabolic Panelon 09-24 Albumin [Mass/Vol] 4.9 g/dL Normal 3.9-4.9 [facility] Comment on above: Performed By: #### C BCDIF, CMP, MG1 #### [facility] [address] [phone] ALP [Catalytic activity/Vol] 52 U/L Normal 34-123 [facility] Comment on above: Performed By: #### C BCDIF, CMP, MG1 #### [facility] [address] [address] ALT [Catalytic activity/Vol] 11 U/L Normal 7-38 [facility] Comment on above: Performed By: #### C BCDIF, CMP, MG1 #### [facility] [address] [address] Anion gap [Moles/Vol] 12 mmol/L Normal 9-18 [facility] Comment on above: Performed By: #### C BCDIF, CMP, MG1 #### [facility] [address] [place] [address] AST [Catalytic activity/Vol] 19 U/L Normal 13-35 [facility] Comment on above: Performed By: #### C BCDIF, CMP, MG1 #### [facility] [address] [place] [address] Bilirubin [Mass/Vol] 0.8 mg/dL Normal 0.2-1.3 [facility] Comment on above: Performed By: #### C BCDIF, CMP, MG1 #### [facility] [address] [place] [address] Calcium [Mass/Vol] 9.3 mg/dL Normal 8.5-10.2 [facility] Comment on above: Performed By: #### C BCDIF, CMP, MG1 #### [facility] [address] [place] [address] Chloride [Moles/Vol] 105 mmol/L Normal 97-105 [facility] Comment on above: Performed By: #### C BCDIF, CMP, MG1 #### [facility] [address] [place] [address] CO2 [Moles/Vol] 25 mmol/L Normal 22-30 [facility] Comment on above: Performed By: #### C BCDIF, CMP, MG1 #### [facility] [address] [place] [address] Creatinine [Mass/Vol] 0.75 mg/dL Normal 0.58-0.96 [facility] Comment on above: Performed By: #### C BCDIFVINOD, MG1 #### [facility] [address] [facility] [phone] eGFR- Amer. >60 Normal [facility] Comment on above: Performed By: #### C BCDIFVINOD, MG1 #### [facility] [address] [facility] [phone] GFR/1.73 sq M predicted among non-blacks MDRD (S/P/Bld) [Vol rate/Area] mL/min/{1.73_m2} Normal [facility] Comment on above: Result Comment: eGFR (Estimated GFR) Units of measure: mL/min/1.73 meters squared eGFR is derived from the reexpressed MDRD Study equation using the following parameters: serum creatinine, age, gender and race. The creatinine assay has been calibrated to be traceable to IDMS. An eGFR <60 mL/min/1.73m2 for >3 months is consistent with chronic kidney disease. Refer to KDOQI guidelines for clinical interpretation. In patients with unstable renal function, e.g. those with acute kidney injury, the eGFR may not accurately reflect actual GFR. Performed By: #### C VINOD VALENTINE, MG1 #### [facility] [address] [facility] [phone] Glucose [Mass/Vol] 91 mg/dL Normal 74-99 [facility] Comment on above: Result Comment: The [place] Diabetes [employer] (ADA) provides guidance for cutoff values for fasting glucose and random glucose. The ADA defines fasting as no caloric intake for at least 8 hours. Fasting plasma glucose results between 100 to 125 mg/dL indicate increased risk for diabetes (prediabetes). Fasting plasma glucose results greater than or equal to 126 mg/dL meet the criteria for diagnosis of diabetes. In the absence of unequivocal hyperglycemia, results should be confirmed by repeat testing. In a patient with classic symptoms of hyperglycemia or hyperglycemic crisis, random plasma glucose results greater than or equal to 200 mg/dL meet the criteria for diagnosis of diabetes. Reference: Standards of Medical Care in Diabetes 2016, [place] [employer]. Diabetes Care. 2016.39(Suppl 1). Performed By: #### C BCDIFVINOD, MG1 #### [facility] [address] [phone] Potassium [Moles/Vol] 3.9 mmol/L Normal 3.7-5.1 [facility] Comment on above: Performed By: #### C BCDIF, CMP, MG1 #### [facility] [address] [phone] Protein [Mass/Vol] 6.9 g/dL Normal 6.3-8.0 [facility] Comment on above: Performed By: #### C BCDIF, CMP, MG1 #### [facility] [address] [facility] [phone] Sodium [Moles/Vol] 142 mmol/L Normal 136-144 [facility] Comment on above: Performed By: #### C BCDIF, CMP, MG1 #### [facility] Laboratory [address] [place] [phone] Urea nitrogen [Mass/Vol] 12 mg/dL Normal 7-21 [facility] Comment on above: Performed By: #### C BCDIF, CMP, MG1 #### [facility] Laboratory [address] [place] [address] ED NOTEon 09-24-2020 ED NOTE HNO ID: [id number] Author: Suyapa (Rn) SO Reyes Service: ? Author Type: Registered Nurse Type: ED Notes Filed: 09/24/2020 2:24 PM Note Text: Pt presents with constant burning chest pain since last with intermittent sharp pains accompanied by intermittent SOB. Pt was seen at urgent care today and told that her EKG showed she may have had a heart attack Normal [facility] ED PROV NOTEon 09-24-2020 ED PROV NOTE HNO ID: [id number] Author: Charmaine Heller MD Service: Emergency Medicine Author Type: Physician Type: ED Provider Notes Filed: 09/24/2020 6:48 PM Note Text: ED Provider Note Patient Name: Hayde Carmona SERVICE DATE: 09/24/20 History Patient presents with: Chest Pain 50 year old female presents to ED c/o chest pain. Pt reports chest pain has been intermittent x 5 days. Denies shortness of breath, dizziness, nausea, diaphoresis. Pt was seen at urgent care today, told ECG was abnormal. Denies aggravating factors, no exertional component. No relief with tums. Pt has h/o hypertension, not on any medication. History provided by: Medical records and patient PAST MEDICAL HISTORY Diagnosis Date - Anemia PAST SURGICAL HISTORY Procedure Laterality Date - BREAST AUGMENTATION W/PROSTHETIC IMPLANT - TONSILLECTOMY HX FAMILY HISTORY Problem Relation Age of Onset - Hypertension Brother - Hypertension Father - Stroke Mother Social History Tobacco Use - Smoking status: Former Smoker Types: Cigarettes Quit date: 05/29/1994 Years since quittin.3 - Smokeless tobacco: Never Used Substance and Sexual Activity - Alcohol use: Yes Comment: Occasional - Drug use: No - Sexual activity: Yes Partners: Male ALLERGIES No Known Allergies Review of Systems Constitutional: Negative for chills and fever. HENT: Negative. Respiratory: Negative. Cardiovascular: Positive for chest pain. Gastrointestinal: Negative. Musculoskeletal: Negative. Skin: Negative. Neurological: Negative. Hematological: Negative. Psychiatric/Behavioral: Negative. Physical Exam BP 139/97 Pulse 85 Temp (Src) 98.2 (Oral) Resp 23 Wt 140 lb (63.5kg) SpO2 98% O2 Therapy: Room Air Physical Exam Vitals and nursing note reviewed. Constitutional: Appearance: Normal appearance. HENT: Head: Normocephalic and atraumatic. Mouth/Throat: Mouth: Mucous membranes are moist. Eyes: Extraocular Movements: Extraocular movements intact. Conjunctiva/sclera: Conjunctivae normal. Pupils: Pupils are equal, round, and reactive to light. Cardiovascular: Rate and Rhythm: Normal rate and regular rhythm. Pulses: Normal pulses. Heart sounds: Normal heart sounds. Pulmonary: Effort: Pulmonary effort is normal. Breath sounds: Normal breath sounds. Abdominal: Palpations: Abdomen is soft. Tenderness: There is no abdominal tenderness. Musculoskeletal: Right lower leg: No edema. Left lower leg: No edema. Skin: General: Skin is warm and dry. Capillary Refill: Capillary refill takes less than 2 seconds. Neurological: Mental Status: She is alert and oriented to person, place, and time. Sensory: No sensory deficit. Motor: No weakness. Coordination: Coordination normal. Gait: Gait normal. Diagnostic Testing ED Labs Ordered and Reviewed CBC + DIFF - Abnormal; Notable for the following components: Result Value Ref Range MPV 8.8 (*) 9.0 - 12.7 fL All other components within normal limits COMP METABOLIC PANEL MAGNESIUM BLD HIGH SENSITIVITY TROPONIN T HIGH SENSITIVITY TROPONIN T NT PRO BNP XR CHEST 1V FRONTAL PORT Final Result IMPRESSION: No acute cardiopulmonary disease identified. 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 Vital signs were reviewed. Triage records were reviewed. Medical records were reviewed. Nursing notes were reviewed and incorporated. Intermittent chest pain x 5 days. ECG shows NSR at 93 bpm, no acute ST changes. No acute distress, well appearing. Pt was hypertensive on arrival. Not on any medications. No leukocytosis or anemia. Electrolytes wnl. Troponin negative x 2. CXR shows no acute process. Discussed with pt. Safe for discharge home, follow up with PCP. Pt has appt scheduled. Strict return precautions dsicussed. The patient was DISCHARGED: Counseled patient regarding suspected diagnosis AND need for follow-up. Discharged home with verbal and written instructions. They were instructed to return as needed for persistent or worsening symptoms or any new concerns. Condition at time of disposition: stable SIGNATURE: MAUREEN Pelaez (Pa) 09/24/201828 Attending Note I have personally performed a face to face assessment of the patient and have reviewed the PA/MEDICAL INSTRUMENT TECHNICIAN note. My flores findings include: Patient presents for intermittent chest pain for 5 days, with ongoing chest discomfort but occasional sharp pains. It does feel burning and she thought it was indigestion, taking Tums without relief. EKG showed no acute ischemic changes. High-sensitivity troponin x2 was unremarkable. Patient was PERC negative, thus no further work-up for pulmonary embolism. Chest x-ray showed no acute pathology including no pneumonia. Remainder of labs were unremarkable. No life-threatening causes of patient's chest pain were noted on work-up or causes that would require admission for further evaluation or specialist consultation. Patient was discharged home. Other additions or changes: None Signature: Charmaine Heller MD Date: 09/24/2020 Time: 6:47 PM Charmaine Heller MD 09/24/20 1848 Normal [facility] High Sens Troponin Ton 09-24 High Sensitivity BRYN <6 Normal <12 [facility] Comment on above: Performed By: #### H STNT #### [facility] Laboratory [address] [facility] [phone] High Sensitivity BRYN <6 Normal <12 [facility] Comment on above: Performed By: #### H STNT #### [facility] Laboratory [address] [id number] Magnesiumon 09-24-2020 Magnesium [Mass/Vol] 2.1 mg/dL Normal 1.7-2.3 [facility] Comment on above: Performed By: #### C BCDIF, CMP, MG1 #### [facility] Laboratory [address]5160 NT Pro BNPon 09-24-2020 PRO B Natr Peptide 60 pg/mL Normal <125 [facility] Comment on above: Performed By: #### N TBNP #### [facility] Laboratory [address] [phone] XR CHEST 1V FRONTAL PORTon 0 09-24-2020 XR CHEST 1V FRONTAL PORT * * *Final Report* * * DATE OF EXAM: Sep 24 2020 2:43PM MDX [id number] - XR CHEST 1V FRONTAL PORT / PROCEDURE REASON: Chest pain * * * * Physician Interpretation * * * * EXAMINATION: CHEST RADIOGRAPH (PORTABLE SINGLE VIEW AP) Exam Date/Time: 09/24/2020 2:43 PM CLINICAL HISTORY: Chest pain MQ: [id number] Comparison: No available prior study RESULT: Lines, tubes, and devices: None. Lungs and pleura: No confluent infiltrate, effusion, or pneumothorax identified. Cardiomediastinal silhouette: Cardiac and mediastinal silhouettes are within normal limits. Other: . IMPRESSION: No acute cardiopulmonary disease identified. Boat Canvas Maker Installer: PSCB Transcribe Date/Time: Sep 24 2020 2:44P Dictated by : NHI BOLANOS MD This examination was interpreted and the report reviewed and electronically signed by: NHI BOLANOS MD on Sep 24 2020 2:45PM EST [id number] [facility] CNPTOUTREACHon 08-10-2019 CNPTOUTREACH Patient Outreach ( JORDAN) ----- HAYDE CARMONA ([id number]) 1970 F Date Time Provider Department 08/10/19 MAYRA BROWN) MARKO During your visit today, we recorded the following information about you: Mayra Brown MA 08/10/2019 3:30 PM Signed PHMA CARE GAP REGISTRY DOCUMENTATION (OUTSIDE TEAMLET) Provider Action/FYI: PHMA Action/FYI: Irving Menchaca MD listed as PCP since 05/30/2016 by Manpreet Mensah - reviewed Care Everywhere - patient switched to Dr. Jules Dupont, DO Updated Care Team tab Patient identified by name and date of . Last BP/Labs: Blood Pressure: Last 3 Encounter BP Readings: Date: BP: 05/29/2016 118/80 Lipids: Cholesterol, Total (mg/dL) Date Value 05/29/2016 171 HDL Cholesterol (mg/dL) Date Value 05/29/2016 64 LDL Cholesterol (mg/dL) Date Value 05/29/2016 99 Triglyceride (mg/dL) Date Value 05/29/2016 38 HGB A1C: No results found for: HBA1C TSH: No results found for: TSH) ? Patient has the following care gap registry disease diagnosis:PT has not seen PCP in 1 year ? Patient has the following open care gaps:N/a ? Last office visit: 05/29/2016 ? Future office visit:N/a OREN Philip MA 08/10/2019 3:30 PM Signed POPULATION HEALTH GLOVE WRAPPER IRENENOTE Provider Action/FYI: Pended Orders None PHMA Documentation 08/10/2019 Opts out of Population Health Yes Mayra Brown MA Patient identified by name and . Mayra Brown MA Allergies As of Date: 08/10/2019 (No Known Allergies) Date Reviewed: 05/29/2016 Reviewed by: Manpreet Mensah - Fully Assessed Reason for Visit: PHMA/Care Gap Outreach [3605] Cmt: [place] - Mammogram Screening Prescriptions as of 08/10/2019 Sig: MULTIVITAMIN CHEWABLE TABLET Take by mouth once daily. Problem List As Of Date: 08/10/2019 (None) Encounter Status:Closed by MAYRA AYOUB on 08/10/19 [facility] PROGRESSon 08-10-2019 PROGRESS HNO ID: [id number] Author: Mayra Brown Service: ? Author Type: Foil Spinner Type: Progress Notes Filed: 08/10/2019 3:30 PM Note Text: POPULATION HEALTH GLOVE WRAPPER QUICKNOTE Provider Action/FYI: Pended Orders None PHMA Documentation 08/10/2019 Opts out of Population Health Yes Mayra Brown MA Patient identified by name and . Mayra Brown MA [facility] PROGRESS HNO ID: [id number] Author: Mayra Brown Service: ? Author Type: Foil Spinner Type: Progress Notes Filed: 08/10/2019 3:30 PM Note Text: PHSD CARE GAP REGISTRY DOCUMENTATION (OUTSIDE TEAMLET) Provider Action/FYI: PHMA Action/FYI: Irving Menchaca MD listed as PCP since 05/30/2016 by Manpreet Mensah - reviewed Care Everywhere - patient switched to Dr. Jules Dupont, DO Updated Care Team tab Patient identified by name and date of . Last BP/Labs: Blood Pressure: Last 3 Encounter BP Readings: Date: BP: 05/29/2016 118/80 Lipids: Cholesterol, Total (mg/dL) Date Value 05/29/2016 171 HDL Cholesterol (mg/dL) Date Value 05/29/2016 64 LDL Cholesterol (mg/dL) Date Value 05/29/2016 99 Triglyceride (mg/dL) Date Value 05/29/2016 38 HGB A1C: No results found for: HBA1C TSH: No results found for: TSH) ? Patient has the following care gap registry disease diagnosis:PT has not seen PCP in 1 year ? Patient has the following open care gaps:N/a ? Last office visit: 05/29/2016 ? Future office visit:N/a Mayra Brown MA [facility] Vital Signs Date Time Vital Sign Value Performing Clinician Facility 04-20-2024 14:43-0400 Body height 165.1 cm [facility] 04-20-2024 14:43-0400 Body mass index (BMI) [Ratio] 21.97 kg/m2 [facility] 04-20-2024 14:43-0400 Body weight 59.88 kg [facility] 04-01-2024 10:04-0400 Diastolic blood pressure 80 mm[Hg] Nola Ronyak DO Work Phone: [facility] 04-01-2024 10:04-0400 Systolic blood pressure 120 mm[Hg] Nola Ronyak DO Work Phone: [facility] 04-01-2024 09:43-0400 Body height 165.1 cm Nola Ronyak DO Work Phone: [facility] 04-01-2024 09:43-0400 Body mass index (BMI) [Ratio] 22.1 kg/m2 Nola Ronyak DO Work Phone: [facility] 04-01-2024 09:43-0400 Body weight 60.24 kg Nola Ronyak DO Work Phone: [facility] 04-01-2024 09:43-0400 Heart rate 72 /min Nola Ronyak DO Work Phone: [facility] 04-01-2024 09:43-0400 Respiratory rate 16 /min Nola Ronyak DO Work Phone: [facility] 10-02-2023 09:29-0400 Body height 165.1 cm Nola Ronyak DO Work Phone: [facility] 10-02-2023 09:29-0400 Body mass index (BMI) [Ratio] 22.17 kg/m2 Nola Ronyak DO Work Phone: [facility] 10-02-2023 09:29-0400 Body weight 60.42 kg Nola Ronyak DO Work Phone: [facility] 10-02-2023 09:29-0400 Diastolic blood pressure 83 mm[Hg] Nola Ronyak DO Work Phone: [facility] 10-02-2023 09:29-0400 Heart rate 86 /min Nola Ronyak DO Work Phone: [facility] 10-02-2023 09:29-0400 Respiratory rate 16 /min Nola Ronyak DO Work Phone: [facility] 10-02-2023 09:29-0400 Systolic blood pressure 131 mm[Hg] Nola Ronyak DO Work Phone: [facility] 03-27-2023 10:35-0400 Diastolic blood pressure 80 mm[Hg] Nola Ronyak DO Work Phone: [facility] 03-27-2023 10:35-0400 Systolic blood pressure 110 mm[Hg] Nola Ronyak DO Work Phone: [facility] 03-27-2023 10:15-0400 Body height 165.1 cm Nola Ronyak DO Work Phone: [facility] 03-27-2023 10:15-0400 Body mass index (BMI) [Ratio] 24.93 kg/m2 Nola Ronyak DO Work Phone: [facility] 03-27-2023 10:15-0400 Body weight 67.95 kg Nola Ronyak DO Work Phone: [facility] 03-27-2023 10:15-0400 Heart rate 70 /min Nola Ronyak DO Work Phone: [facility] 03-27-2023 10:15-0400 Respiratory rate 16 /min Nola Ronyak DO Work Phone: [facility] 11-26-2022 11:05-0400 Diastolic blood pressure 90 mm[Hg] Nola Pickeringk DO Work Phone: [facility] 11-26-2022 11:05-0400 Systolic blood pressure 140 mm[Hg] Nola Birdyak DO Work Phone: [facility] 11-26-2022 10:48-0400 Body height 165.1 cm Nolaanirudh Birdyak DO Work Phone: [facility] 11-26-2022 10:48-0400 Body mass index (BMI) [Ratio] 25.96 kg/m2 Nolaanirudh Birdyak DO Work Phone: [facility] 11-26-2022 10:48-0400 Body weight 70.76 kg Nolaanirudh Birdyak DO Work Phone: [facility] 11-26-2022 10:48-0400 Heart rate 76 /min Nolaanirudh Pickeringk DO Work Phone: [facility] 05-19-2022 09:59-0500 Body height 165.1 cm Nola Galeas Work Phone: [facility] Work Phone: 05-19-2022 09:59-0500 Body mass index (BMI) [Ratio] 26.13 kg/m2 Nola Galeas Work Phone: [facility] Work Phone: 05-19-2022 09:59-0500 Body surface area Derived from formula 1.78 m2 Nola Pickeringk Work Phone: [facility] Work Phone: 05-19-2022 09:59-0500 Body weight 71.22 kg Nola Pickeringk Work Phone: [facility] Work Phone: 05-19-2022 09:59-0500 Diastolic blood pressure 74 mm[Hg] Nola Pickeringk Work Phone: [facility] Work Phone: 05-19-2022 09:59-0500 Heart rate 73 /min Nola Galeas Work Phone: [facility] Work Phone: 05-19-2022 09:59-0500 Systolic blood pressure 115 mm[Hg] Nolaanirudh Galeas Work Phone: [facility] Work Phone: 01-22-2022 11:52-0400 Body height 165.1 cm Nolaanirudh Galeas Work Phone: [facility] Work Phone: 01-22-2022 11:52-0400 Body mass index (BMI) [Ratio] 24.79 kg/m2 Nolaanirudh Galeas Work Phone: [facility] Work Phone: 01-22-2022 11:52-0400 Body surface area Derived from formula 1.75 m2 Nolaanirudh Galeas Work Phone: [facility] Work Phone: 01-22-2022 11:52-0400 Body weight 67.59 kg Nolaanirudh Galeas Work Phone: [facility] Work Phone: 01-22-2022 11:52-0400 Diastolic blood pressure 90 mm[Hg] Nola Galeas Work Phone: [facility] Work Phone: 01-22-2022 11:52-0400 Heart rate 83 /min Nolaanirudh Galeas Work Phone: [facility] Work Phone: 01-22-2022 11:52-0400 Systolic blood pressure 119 mm[Hg] Nola Galeas Work Phone: [facility] Work Phone: 12-04-2021 17:55-0400 Body height 165.1 cm Nola Galeas Work Phone: [facility] Work Phone: 12-04-2021 17:55-0400 Body mass index (BMI) [Ratio] 24.96 kg/m2 Nola Galeas Work Phone: [facility] Work Phone: 12-04-2021 17:55-0400 Body surface area Derived from formula 1.75 m2 Nola Rosario Gudelia Work Phone: [facility] Work Phone: 12-04-2021 17:55-0400 Body temperature 98.5 [degF] Nolaanirudh Galeas Work Phone: [facility] Work Phone: 12-04-2021 17:55-0400 Body weight 68.04 kg Nolanairudh Galeas Work Phone: [facility] Work Phone: 12-04-2021 17:55-0400 Diastolic blood pressure 86 mm[Hg] Nola Rosario Gudelia Work Phone: [facility] Work Phone: 12-04-2021 17:55-0400 Heart rate 92 /min Nola Ponce Gudelia Work Phone: [facility] Work Phone: 12-04-2021 17:55-0400 Respiratory rate 18 /min Nola Birdza Work Phone: [facility] Work Phone: 12-04-2021 17:55-0400 Systolic blood pressure 150 mm[Hg] Nola Galeas Work Phone: [facility] Work Phone: 12-04-2021 17:55-0400 6 1 Nola Galeas Work Phone: [facility] Work Phone: Comment on above: [employer] 10-17-2021 18:15-0400 Body height 165.1 cm Nola Galeas Work Phone: [facility] Work Phone: 10-17-2021 18:15-0400 Body mass index (BMI) [Ratio] 24.96 kg/m2 Nola Galeas Work Phone: [facility] Work Phone: 10-17-2021 18:15-0400 Body surface area Derived from formula 1.75 m2 Nola Galeas Work Phone: [facility] Work Phone: 10-17-2021 18:15-0400 Body temperature 98.2 [degF] Nola Galeas Work Phone: [facility] Work Phone: 10-17-2021 18:15-0400 Body weight 68.04 kg Nola Galeas Work Phone: [facility] Work Phone: 10-17-2021 18:15-0400 Diastolic blood pressure 107 mm[Hg] Nola Galeas Work Phone: [facility] Work Phone: 10-17-2021 18:15-0400 Heart rate 80 /min Nola Galeas Work Phone: [facility] Work Phone: 10-17-2021 18:15-0400 Respiratory rate 16 /min Nola Galeas Work Phone: [facility] Work Phone: 10-17-2021 18:15-0400 SaO2% (BldA) [Mass fraction] 98 % Nola PickeringIRX Therapeutics Work Phone: [facility] Work Phone: 10-17-2021 18:15-0400 Systolic blood pressure 167 mm[Hg] Nola PickeringIRX [employer] Work Phone: [facility] Work Phone: 10-17-2021 18:15-0400 6 1 Nola Galeas Work Phone: [facility] Work Phone: Comment on above: [employer] 09-29-2021 13:40-0400 Body height 165.1 cm Nola Galeas Work Phone: [facility] Work Phone: 09-29-2021 13:40-0400 Body mass index (BMI) [Ratio] 24.96 kg/m2 Nola Galeas Work Phone: [facility] Work Phone: 09-29-2021 13:40-0400 Body surface area Derived from formula 1.75 m2 Nola Galeas Work Phone: [facility] Work Phone: 09-29-2021 13:40-0400 Body temperature 97.7 [degF] Nola Galeas Work Phone: [facility] Work Phone: 09-29-2021 13:40-0400 Body weight 68.04 kg Nola Galeas Work Phone: [facility] Work Phone: 09-29-2021 13:40-0400 Diastolic blood pressure 82 mm[Hg] Nola Rosario Birdza Work Phone: [facility] Work Phone: 09-29-2021 13:40-0400 Heart rate 89 /min Nola Rosario Ladank Work Phone: [facility] Work Phone: 09-29-2021 13:40-0400 Respiratory rate 14 /min Nola Birdza Work Phone: [facility] Work Phone: 09-29-2021 13:40-0400 SaO2% (BldA) [Mass fraction] 98 % Nola Ponce Gudelia Work Phone: [facility] Work Phone: 09-29-2021 13:40-0400 Systolic blood pressure 156 mm[Hg] Nola Ponce Gudelia Work Phone: [facility] Work Phone: 09-29-2021 13:40-0400 7 1 Nola Rosario Gudelia Work Phone: [facility] Work Phone: Comment on above: [facility] 09-23-2021 09:55-0400 Diastolic blood pressure 90 mm[Hg] Nola Pickeringbecki Work Phone: [facility] Work Phone: 09-23-2021 09:55-0400 Systolic blood pressure 150 mm[Hg] Nola Galeas Work Phone: [facility] Work Phone: 09-23-2021 09:36-0400 Body height 165.1 cm Nola Galeas Work Phone: [facility] Work Phone: 09-23-2021 09:36-0400 Body mass index (BMI) [Ratio] 25.96 kg/m2 Nola Galeas Work Phone: [facility] Work Phone: 09-23-2021 09:36-0400 Body surface area Derived from formula 1.78 m2 Nola Galeas Work Phone: [facility] Work Phone: 09-23-2021 09:36-0400 Body weight 70.76 kg Nola Galeas Work Phone: [facility] Work Phone: 09-23-2021 09:36-0400 Diastolic blood pressure 92 mm[Hg] Nola Galeas Work Phone: [facility] Work Phone: 09-23-2021 09:36-0400 Heart rate 86 /min Nola Galeas Work Phone: [facility] Work Phone: 09-23-2021 09:36-0400 Systolic blood pressure 173 mm[Hg] Nola Galeas Work Phone: [facility] Work Phone: 05-28-2021 14:00-0500 Body mass index (BMI) [Ratio] 25.16 kg/m2 Nola Galeas Work Phone: [facility] [place] [address] DO Work Phone: 05-28-2021 14:00-0500 Body surface area Derived from formula 1.76 m2 Nola Galeas Work Phone: [facility] [place] [address] DO Work Phone: 05-28-2021 14:00-0500 Body temperature 97.4 [degF] Nola Rosario Gudelia Work Phone: [facility] [place] [address] DO Work Phone: 05-28-2021 14:00-0500 Body weight 68.58 kg Nola Rosario Gudelia Work Phone: [facility] [place] [address] DO Work Phone: 05-28-2021 14:00-0500 Diastolic blood pressure 92 mm[Hg] Nola Rosario Birdza Work Phone: [facility] [place] [address] DO Work Phone: 05-28-2021 14:00-0500 Heart rate 78 /min Nola Rosario Birdza Work Phone: [facility] 210 DO Work Phone: 05-28-2021 14:00-0500 Systolic blood pressure 152 mm[Hg] Nola Rosario Gudelia Work Phone: [facility] [address] DO Work Phone: 01-17-2021 13:57-0400 Body height 165.1 cm Nola Birdrichardbecki Work Phone: YO-Abhyqwzjsm-Adgv na [address] [place] Work Phone: 01-17-2021 13:57-0400 Body mass index (BMI) [Ratio] 25.63 kg/m2 Nola Galeas Work Phone: QB-Ivvxmhqwgq-Fmcr na [address] [place] Work Phone: 01-17-2021 13:57-0400 Body surface area Derived from formula 1.77 m2 Nola Galeas Work Phone: OX-Mkjxvsyfmv-Fjcf na [address] [place] Work Phone: 01-17-2021 13:57-0400 Body weight 69.85 kg Nola Galeas Work Phone: RH-Wlawwvcwyf-Hoxl na [address] [place] Work Phone: 01-17-2021 13:57-0400 Diastolic blood pressure 86 mm[Hg] Nola Rosario Gudelia Work Phone: RO-Wlhhtyjnku-Iuzs na [address] [place] Work Phone: 01-17-2021 13:57-0400 Heart rate 87 /min Nola Rosario Gudelia Work Phone: MX-Zykhkrfiox-Xidc na [address] [place] Work Phone: 01-17-2021 13:57-0400 SaO2% (BldA) [Mass fraction] 99 % Nola Rosario Gudelia Work Phone: XU-Qgadzxtgdm-Aede na [address] [place] Work Phone: 01-17-2021 13:57-0400 Systolic blood pressure 137 mm[Hg] Nola Ponce Gudelia Work Phone: NR-Nffnkdrpdv-Dvkm na [address] [place] Work Phone: 12-18-2020 14:38-0400 Body height 165.1 cm Nola Rosario Gudelia Work Phone: NS-Ocxrmbzjag-Dvgq na [address] [place] Work Phone: 12-18-2020 14:38-0400 Body mass index (BMI) [Ratio] 25.63 kg/m2 Nola Ponce Gudelia Work Phone: FN-Gfpraevrhn-Kpus na [address] [place] Work Phone: 12-18-2020 14:38-0400 Body surface area Derived from formula 1.77 m2 Nola Ponce Gudelia Work Phone: MA-Mhkudpzwmq-Kjtb na [address] [place] Work Phone: 12-18-2020 14:38-0400 Body weight 69.85 kg Nola Birdza Work Phone: XM-Pafbtnsqbt-Ubde na [address] [place] Work Phone: 12-18-2020 14:38-0400 Diastolic blood pressure 83 mm[Hg] Nola Galeas Work Phone: QT-Crmvbmojdo-Xwha na [address] [place] Work Phone: 12-18-2020 14:38-0400 Heart rate 77 /min Nola Galeas Work Phone: OL-Hakpxnttyi-Gxkc na [address] [place] Work Phone: 12-18-2020 14:38-0400 SaO2% (BldA) [Mass fraction] 100 % Nola Galeas Work Phone: FY-Qmsvaoknxs-Atzc na [address] [place] Work Phone: 12-18-2020 14:38-0400 Systolic blood pressure 157 mm[Hg] Nola Galeas Work Phone: RV-Xuyrultxfr-Uble na [address] [place] Work Phone: Encounters Encounter Date Encounter Type Care Provider Facility Start: 05-30-2025 ambulatory Richi Rodriguez Facility:[facility] Start: 04-07-2025 End: 04-07-2025 Subsequent hospital visit by physician Vj Whittington DO Work Phone: [facility] Comment on above: Chronic rhinitis; Deviated nasal septum; Hypertrophy of nasal turbinates Start: 04-07-2025 End: 04-07-2025 ambulatory [facility] Start: 04-03-2025 End: 04-03-2025 ambulatory [facility] Start: 01-27-2025 End: 01-27-[address] Richi Rodriguez DO Work Phone: -[facility] Start: 01-27-2025 End: 01-27-[address] Richi Rodriguez DO -[facility] Work Phone: Start: 01-27-2025 End: 01-27-2025 ambulatory Richi Rodriguez Facility:[facility] Start: 09-16-2024 End: 09-16-[address] Richi Rodriguez DO Work Phone: [facility] Work Phone: Start: 09-16-2024 End: 09-16-[address] Richi Rodriguez DO -Laboratory, [place] Work Phone: Start: 09-16-2024 End: 09-16-2024 ambulatory Richi Rodriguez Facility:[facility] Start: 05-16-2024 End: 05-16-2024 ambulatory NOLA Rosario [facility] Start: 05-16-2024 End: 05-16-2024 Encounter for general adult medical examination without abnormal findings NOLA Rosario [facility] Start: 04-20-2024 End: 04-20-2024 ambulatory [facility] Start: 04-20-2024 End: 04-20-2024 Subsequent hospital visit by physician Hannah [id number] Mammo 1 [facility] Comment on above: Visit for screening mammogram Start: 04-01-2024 End: 04-01-2024 Patient encounter status Nola Galeas DO Work Phone: [facility] Work Phone: Start: 04-01-2024 End: 04-01-2024 Periodic preventive med est patient 40-64yrs Nola Galeas DO Work Phone: [facility] Comment on above: Visit for screening mammogram (Primary Dx); Routine adult health maintenance; Benign hypertension Start: 04-01-2024 End: 04-01-2024 ambulatory [facility] Start: 04-01-2024 End: 04-01-2024 [facility] for general adult medical [facility] Start: 10-02-2023 End: 10-02-2023 Office outpatient visit 15 minutes Nola Galeas DO Work Phone: [facility] Comment on above: Benign hypertension (Primary Dx); Routine adult health maintenance Start: 10-02-2023 End: 10-02-2023 Patient encounter status Nola Glaeas DO Work Phone: [facility] Work Phone: Start: 03-27-2023 End: 03-27-2023 Patient encounter status Nola Birdrichardbecki DO Work Phone: [facility] Work Phone: Start: 03-27-2023 End: 03-27-2023 Periodic preventive med est patient 40-64yrs Nola Galeas DO Work Phone: [facility] Comment on above: Screening for colon cancer (Primary Dx); Encounter for preventative adult health care examination Start: 03-13-2023 ambulatory NOLA Rice ty:[id number] Start: 11-26-2022 End: 11-26-2022 Office outpatient visit 25 minutes Nola Galeas DO Work Phone: [facility] Comment on above: Benign hypertension (Primary Dx); Gastroesophageal reflux disease without esophagitis; Visit for screening mammogram Start: 05-30-2022 Chart Update [facility]aleas [facility] Work Phone: Start: 05-19-2022 Chart Update Nola Galeas [facility] Work Phone: Start: 05-19-2022 Patient encounter procedure Nola Galeas [facility] Work Phone: Start: 05-19-[address] NOLA GALEAS Fa cility:[id number] Start: 03-12-2022 Chart Update Nola Galeas [facility] Work Phone: Start: 01-22-2022 Office outpatient vi sit 25 minutes Nola Galeas [facility] Work Phone: Start: 01-22-2022 Patient encounter procedure Nola Galeas Work Phone: [facility] Work Phone: Start: 01-22-[address] NOLA GALEAS Fa cility:[id number] Start: 12-05-2021 Result Review Nola Galeas Work Phone: [facility] Work Phone: Start: 12-04-2021 ambulatory HONG MANZO Facility :[id number] Start: 12-04-2021 Office outpatient vi sit 15 minutes Nola Galeas Work Phone: [facility] Work Phone: Start: 10-19-2021 Chart Update Nola Galeas Work Phone: [facility] Work Phone: Start: 10-17-[address] En[facility] ity:[id number] Start: 10-17-2021 Office outpatient vi sit 15 minutes Nola Galeas Work Phone: [facility] Work Phone: Start: 09-29-2021 ambulatory HONG MANZO Facility :[id number] Start: 09-29-2021 Office outpatient vi sit 15 minutes Nola Galeas Work Phone: [facility] Work Phone: Start: 09-23-2021 Office outpatient vi sit 15 minutes Nola Galeas Work Phone: [facility] Work Phone: Start: 09-23-2021 Patient encounter procedure Nola Galeas Work Phone: [facility] Work Phone: Start: 09-23-[address] NOLA Art cility:[id number] Start: 06-09-2021 Chart Update Nola Galeas Work Phone: [facility] Work Phone: Start: 05-28-2021 Periodic preventive med est patient 40-64yrs Nola Galeas Work Phone: [facility] [place] [address] DO Work Phone: Start: 01-17-2021 Office outpatient vi sit 15 minutes Nola Ponce Gudelia Work Phone: [id number] [address] [place] Work Phone: Start: 12-31-2020 Chart Update Nola Galeas Work Phone: [facility] [place] Work Phone: Start: 12-18-2020 Office outpatient ne w 45 minutes Nola Pickeringbecki Work Phone: [id number] [address] [place] Work Phone: Start: 11-20-2020 AUDIT Nola Galeas Work Phone: [facility] Work Phone: Start: 10-16-2017 End: 10-16-2017 Emergency department patient visit [facility] Procedures Date Procedure Procedure Detail Performing Clinician Start: 01-27-2025 MRI of brain with contrast Dr. Richi Rodriguez DO Work Phone: Start: 05-16-2024 Lipid 1996 panel - S renny or Plasma Vj Martinezam DO Work Phone: Start: 04-20-2024 Mammography Vj Martinez am DO Work Phone: Start: 04-03-2023 Lipid 1996 panel - S renny or Plasma Nola Galeas DO Work Phone: Start: 03-13-2023 Mammography Nola de la torre DO Work Phone: Start: 05-19-2022 Lipid 1996 panel - S renny or Plasma Nola Galeas DO Work Phone: Start: 05-19-2022 Microscopic observat ion [Identifier] in Cervix by Cyto stain Nola Galeas DO Work Phone: Start: 03-12-2022 Mammography Nola de la torre DO Work Phone: Start: 01-08-2021 Echocardiography Nola Galeas Work Phone: Breast Surgery Enlar gement Procedure Bilateral Nola Galeas Work Phone: Comment on above: 2000.; Cervical Loop Electrosurgical Excision (LEEP) Nola Galeas Work Phone: Corneal LASIK Bilateral Aurelia Galeas Work Phone: Nasal Septal Deviati on Repair Nola Galeas Work Phone: Tonsillectomy Nola Galeas Work Phone: Plan of Treatment Date Care Activity Detail Author Start: 2046 RSV Immunization for Adults (1 - 1-dose 75+ series) RSV Immunization for Adults (1 - 1-dose 75+ series) [facility] Start: 05-16-2029 Lipid panel Lipid Panel [facility] Start: 04-03-2028 Lipid panel Lipid Panel [facility] Start: 05-19-2027 Lipid panel Lipid Panel [facility] Start: 05-29-2026 DTaP/Tdap/Td Vaccine s (2 - Td or Tdap) DTaP/Tdap/Td Vaccines (2 - Td or Tdap) [facility] Start: 04-10-2026 Screening for malign ant neoplasm of colon [facility] Start: 05-19-2025 Screening for malign ant neoplasm of cervix [facility] Start: 04-20-2025 Screening for malign ant neoplasm of breast Mammogram [facility] Start: 04-03-2025 End: 04-03-2025 Patient encounter procedure 04/03/2025 9:30 AM EDT [facility] Visit [facility] [address] [address] Nola Galeas DO [address] [facility], [address] [place] [address] [facility] Start: 04-02-2025 Yearly Adult Physical Yearly Adult P hysical [facility] Start: 02-27-2025 COVID-19 Vaccine ( season) COVID-19 Vaccine ( season) [facility] Start: 02-27-2025 Influenza vaccination Influenza Vacc ine (#1) [facility] Start: 09-30-2024 End: 09-30-2024 Patient encounter procedure 09/30/2024 9:00 AM EDT Office Visit [facility] [address] [id number] Nola Galeas DO [address] [facility], [address] [place] [address] [facility] Start: 04-01-2024 End: 04-01-2025 CBC W Auto Differential panel - Blood CBC and Auto Differential Lab Routine Benign hypertension Expected: 04/01/2024 (Approximate), Expires: 04/01/2025 [facility] Work Phone: Comment on above: Expected: 04/01/2024 (Approximate), Expires: 04/01/2025 Start: 04-01-2024 End: 04-01-2025 Comprehensive metabolic 2000 panel - Serum or Plasma Comprehensive Metabolic Panel Lab Routine Routine adult health maintenance Benign hypertension Expected: 04/01/2024 (Approximate), Expires: 04/01/2025 [facility] Work Phone: Comment on above: Expected: 04/01/2024 (Approximate), Expires: 04/01/2025 Start: 04-01-2024 End: 06-01-2025 DBT Breast - bilateral BI mammo bilateral screening tomosynthesis Imaging Routine Visit for screening mammogram Expected: 04/01/2024, Expires: 06/01/2025 [facility] Service Area Work Phone: Comment on above: Expected: 04/01/2024 , Expires: 06/01/2025 Start: 04-01-2024 End: 04-01-2025 Lipid 1996 panel - Serum or Plasma Lipid Panel Lab Routine Routine adult health maintenance Benign hypertension Expected: 04/01/2024 (Approximate), Expires: 04/01/2025 [facility] Work Phone: Comment on above: Expected: 04/01/2024 (Approximate), Expires: 04/01/2025 Start: 04-01-2024 End: 04-01-2024 Patient encounter procedure 04/01/2024 9:45 AM EDT Office Visit [facility] [address] [facility] [address] [place] [address] Nola Galeas DO [address] [facility], [address] [place], [place] [id number] [facility] Start: 03-28-2024 Yearly Adult Physical Yearly Adult P hysical [facility] Start: 03-13-2024 Screening for malign ant neoplasm of breast Mammogram [facility] Start: 02-28-2024 COVID-19 Vaccine ( season) COVID-19 Vaccine ( season) [facility] Start: 02-28-2024 COVID-19 Vaccine ( season) COVID-19 Vaccine ( season) [facility] Start: 02-28-2024 Influenza vaccination [facility] Start: 10-02-2023 End: 10-01-2024 CBC W Auto Differential panel - Blood CBC and Auto Differential Lab Routine Benign hypertension Expected: 10/02/2023 (Approximate), Expires: 10/01/2024 [facility] Work Phone: Comment on above: Expected: 10/02/2023 (Approximate), Expires: 10/01/2024 Start: 10-02-2023 End: 10-01-2024 Comprehensive metabolic 2000 panel - Serum or Plasma Comprehensive Metabolic Panel Lab Routine Benign hypertension Routine adult health maintenance Expected: 10/02/2023 (Approximate), Expires: 10/01/2024 [facility] Service Area Work Phone: Comment on above: Expected: 10/02/2023 (Approximate), Expires: 10/01/2024 Start: 10-02-2023 End: 10-01-2024 Lipid 1996 panel - Serum or Plasma Lipid Panel Lab Routine Benign hypertension Routine adult health maintenance Expected: 10/02/2023 (Approximate), Expires: 10/01/2024 [facility] Work Phone: Comment on above: Expected: 10/02/2023 (Approximate), Expires: 10/01/2024 Start: 09-25-2023 End: 09-25-2023 Patient encounter procedure 09/25/2023 9:30 AM EDT [facility] Visit [facility] [address] [phone] Nola Galeas DO [address] [facility], [facility] [address] [place] [address] [facility] Start: 03-27-2023 End: 03-27-2024 Cologuard colon cancer screening Cologuard colon cancer screening Lab Routine Screening for colon cancer Expected: 03/27/2023 (Approximate), Expires: 03/27/2024 [facility] Service Area Work Phone: Comment on above: Expected: 03/27/2023 (Approximate), Expires: 03/27/2024 Start: 03-27-2023 End: 03-27-2023 Patient encounter procedure 03/27/2023 10:15 AM EDT Office Visit [facility] [address] [facility] [address] [place] [address] Nola Galeas DO [address] [facility], [address] [place], [place] [phone] [facility] Start: 03-12-2023 Screening for malign ant neoplasm of breast Mammogram [facility] Start: 02-27-2023 Influenza vaccination [facility] Start: 11-26-2022 End: 11-27-2023 Comprehensive metabolic 2000 panel - Serum or Plasma Comprehensive metabolic panel Lab Routine Benign hypertension Expected: 11/26/2022 (Approximate), Expires: 11/27/2023 [facility] Work Phone: Comment on above: Expected: 11/26/2022 (Approximate), Expires: 11/27/2023 Start: 11-26-2022 End: 01-27-2024 DBT Breast - bilateral BI mammo bilateral screening tomosynthesis Imaging Routine Visit for screening mammogram Expected: 11/26/2022, Expires: 01/27/2024 [facility] Service Area Work Phone: Comment on above: Expected: 11/26/2022 , Expires: 01/27/2024 Start: 11-26-2022 End: 11-27-2023 Lipid 1996 panel - Serum or Plasma Lipid Panel Lab Routine Benign hypertension Expected: 11/26/2022 (Approximate), Expires: 11/27/2023 [facility] Work Phone: Comment on above: Expected: 11/26/2022 (Approximate), Expires: 11/27/2023 Start: 10-20-2022 FUV, Provider: Nola Galeas, Status: Pen, Time: 9:30 AM FUV, Provider: Nola Galeas, Status: Pen, Time: 9:30 AM [facility] Work Phone: Start: 05-07-2022 PHYSICLPAP, Provider : Nola Galeas, Status: Pen, Time: 10:00 AM PHYSICLPAP, Provider: Nola Galeas, Status: Pen, Time: 10:00 AM [facility] Work Phone: Start: 12-23-2021 FUV, Provider: Nola Galeas, Status: Pen, Time: 9:00 AM FUV, Provider: Nola Galeas, Status: Pen, Time: 9:00 AM [facility]: Start: 09-23-2021 FUV, Provider: Nola Galeas, Status: Pen, Time: 9:30 AM FUV, Provider: Nola Galeas, Status: Pen, Time: 9:30 AM [facility] [place] [address] DO Work Phone: Start: 2021 Pneumococcal Vaccine : 50+ Years (1 of 1 - PCV) Pneumococcal Vaccine: 50+ Years (1 of 1 - PCV) [facility] Start: 2021 Zoster Vaccines (1 of 2) Zoste r Vaccines (1 of 2) [facility] Start: 01-17-2021 FUV, Provider: Antonieta Cheatham, Status: Pen, Time: 1:45 PM FUV, Provider: Antonieta Cheatham, Status: Pen, Time: 1:45 PM [facility] [address] [place] Work Phone: Start: 01-08-2021 ECHO, Provider: MEDI NA HHVI,MG CARD, Status: Pen, Time: 7:00 AM ECHO, Provider: HOBSON HHVI,MG CARD, Status: Pen, Time: 7:00 AM [id number][id number]-Wcpbub [address] [place] Work Phone: Start: 2001 Screening for malign ant neoplasm of cervix HPV/Cotest [facility] Start: 1993 DTaP/Tdap/Td Vaccine s (1 - Tdap) DTaP/Tdap/Td Vaccines (1 - Tdap) [facility] Start: 1992 Screening for malign ant neoplasm of cervix [facility] Start: 1990 Hepatitis B Vaccines (1 of 3 - 19+ 3-dose series) Hepatitis B Vaccines (1 of 3 - 19+ 3-dose series) [facility] Start: 1989 Diabetes mellitus screening Diabetes Screening [facility] Start: 1989 Hepatitis C screening Hepatitis C Sc reening [facility] Start: 1983 Depression Screening Depression Scre ening [facility] Start: 1972 MMR Vaccines (1 of 1 - Standard series) MMR Vaccines (1 of 1 - Standard series) [facility] Start: 01-26-1972 COVID-19 Vaccine (#1) COVID-19 Vacci ne (#1) [facility] Start: 1971 Hepatitis B Vaccines (1 of 3 - 3-dose series) Hepatitis B Vaccines (1 of 3 - 3-dose series) [facility] Start: 1971 HIV screening HIV Screening [facility] Start: 1971 Screening for malign ant neoplasm of colon [facility] Start: 1971 Yearly Adult Physical Yearly Adult P hysical [facility] End: 04-07-2025 CT Maxillofacial region WO contrast [facility] Work Phone: Comment on above: Once for 1 Occurrenc es starting 04/07/2025 until 04/07/2025 End: 04-20-2024 DBT Breast - bilateral [facility] Service Area Work Phone: Comment on above: Once for 1 Occurrenc es starting 04/20/2024 until 04/20/2024 Payers Date Payer Category Payer Self-pay 2016 Commercial Managed C are - HMO [employer] [id number] 2016 Managed Care (Private) [facility] [id number] 2016 Private Health Insurance [facility] [id number] 2016-Present [id number] [place] [address] [id number] 2016 Private Health Insurance [id number] 1971 Unknown [id number]. 2.356 1971 Unknown [id number] [id number]. 2.356 1971 Unknown [id number] [id number]. 2.356 1971 Unknown [id number]. 2.356 1971 Unknown [id number] [id number]. 2.356 1971 Unknown [id number] [id number]. 2.356 1971 Unknown [id number] [id number]. 2.356 1971 Unknown [id number] [id number]. 2.356 1971 Unknown [id number] [id number]. 2.1242 1971 Unknown [id number] [id number]. 2.1245 1971 Unknown [id number] [id number]. 2.1244 Unknown [facility] Unknown [id number] [id number]. 2.462 Unknown [id number] [id number] 2.462 Unknown [id number] 2.462 Social History Date Type Detail Facility Start: 03-27-2023 End: 04-01-2024 Former smoker Former smoker [facility] [address] [place] Work Phone: Comment on above: smoked a half a pack a day for 3 years. quit 1994.; Start: 11-26-2022 End: 04-01-2024 Tobacco smoking status NHIS Ex-smoker [facility] Work Phone: Start: 06-29-1990 End: 06-29-1992 History of tobacco use Current smoker [facility] Work Phone: Start: 06-29-1990 End: 06-29-1992 History of tobacco use Cigarette Smoker [facility] Work Phone: Start: 11-26-2022 End: 04-01-2024 Tobacco use and exposure Smokeless tobacco non-user [facility] Work Phone: Start: 1970 Sex Assigned At Not on file [facility] Work Phone: Start: 03-27-2023 End: 04-01-2024 Gender identity Not on file [facility] Work Phone: Start: 11-16-2022 End: 04-20-2024 Exposure to SARS-CoV-2 (event) Not sure [facility] Tobacco smoking status NCIS Unknown if ever smoked [facility] Work Phone: Start: 09-23-2024 End: 03-31-2025 Sex Female (finding) [facility] Start: 1970 Sex Assigned At Female [facility] NEGATED: Highlighted rowStart: NINF History of tobacco use Passive smoker [facility] Work Phone: Clinical Notes 12-18-2020 to 04-01-2024 Nola Galeas, DO - 04/01/2024 9:45 AM EDTPatient InstructionsNola Galeas, DO - 10/02/2023 9:30 AM EDTPatient InstructionsNola Galeas, DO - 03/27/2023 10:15 AM EDTPatient Instructions Note Date & Type Note Facility 04-01-2024 History of Present illness Narrative Subjective Patient ID: Hayde Carmona is a 53 y.o. female who presents for Annual Exam. HPI She is here for her annual physical. Her last Pap test was in 2021 and she was negative for HPV; we will repeat her Pap test in 2024 as it would be 3 years. She really did not need a Pap test at this visit today. She has been feeling well overall and has no new complaints. She needs to get her labs done for this year so an order was placed. She needed a refill on her Microzide 12.5. Review of Systems Respiratory: Negative for cough and shortness of breath. Cardiovascular: Negative for chest pain, palpitations and leg swelling. Gastrointestinal: Negative for abdominal pain, constipation and diarrhea. Neurological: Negative for dizziness and headaches. Current Outpatient Medications: hydroCHLOROthiazide (Microzide) 12.5 mg capsule, Take 1 capsule (12.5 mg) by mouth once daily., Disp: 90 capsule, Rfl: 1 multivitamin tablet, Take by mouth., Disp: , Rfl: omeprazole (PriLOSEC) 20 mg tablet,delayed release (DR/EC) EC tablet, Take 1 tablet (20 mg) by mouth once daily., Disp: , Rfl: tretinoin (Retin-A) 0.05 % cream, apply as directed BY PHYSICIAN, Disp: , Rfl: Objective BP 120/80 (BP Location: Left arm, Patient Position: Sitting, BP Cuff Size: Adult) Pulse 72 Resp 16 Ht 1.651 m (5' 5) Wt 60.2 kg (132 lb 12.8 oz) BMI 22.10 kg/m Physical Exam Constitutional: Appearance: Normal appearance. HENT: Mouth/Throat: Mouth: Mucous membranes are moist. Pharynx: Oropharynx is clear. Eyes: Conjunctiva/sclera: Conjunctivae normal. Pupils: Pupils are equal, round, and reactive to light. Cardiovascular: Rate and Rhythm: Normal rate and regular rhythm. Heart sounds: Normal heart sounds. Pulmonary: Effort: Pulmonary effort is normal. Breath sounds: Normal breath sounds. Abdominal: General: Bowel sounds are normal. There is no distension. Palpations: Abdomen is soft. There is no mass. Tenderness: There is no abdominal tenderness. Lymphadenopathy: Cervical: No cervical adenopathy. Skin: General: Skin is warm and dry. Neurological: General: No focal deficit present. Assessment/Plan #1 encounter for preventive healthcare visit: I completed a form stating that she had a preventive physical today which needed for her work. Lab order entered for CMP, lipidAnd CBC. Mammogram order entered. She should see me in 6 months to follow-up for blood pressure. In March 2025 we will do Pap test at her annual physical. documented in this encounter [facility] Work Phone: 04-01-2024 Instructions Nola Galeas DO - 04/01/2024 9:45 AM EDT Your last mammogram was 03/13/2023, so you are due at any time. The order is in the system. Get blood test done after fasting overnight. The lab is on the first floor. Lab hours are 7 am to 4 pm Thu-Thu and 8am to Noon on Thursday. No appt is needed. Orders are entered into the system so you do not need a paper order. See me in 6 mo for recheck blood pressure. We will do PAP during your physical in Feb or Mar 2025 documented in this encounter [facility] Work Phone: 10-02-2023 History of Present illness Narrative Subjective Hayde Carmona is a 53 y.o. female who presents for Follow-up (Pt here for hypertension follow up.). She has been intermittenly checking her bp at home and are tending to be about the same No shorntesss of breath No chest pain except for when had esoph reflux No leg edema She does not need any refills today. She denies any side effects from the hydrochlorothiazide. Review of Systems Objective BP 131/83 Pulse 86 Resp 16 Ht 1.651 m (5' 5) Wt 60.4 kg (133 lb 3.2 oz) BMI 22.17 kg/m Physical Exam GEN: NAD HEENT: normal NECK: no adenopathy, no thyroid enlargment LUNGS: CTAB CV: reg S1/S2 no murmurs EXT: no leg edema Assessment/Plan Problem List Items Addressed This Visit Benign hypertension - she is doing very well. Due for labs. Relevant Orders Comprehensive Metabolic Panel Lipid Panel CBC and Auto Differential Other Visit Diagnoses She is due for annual physical for her insurance Relevant Orders Comprehensive Metabolic Panel Lipid Panel She will be due for mammogram in the fall, after 03/13/24 documented in this encounter [facility] Work Phone: 10-02-2023 Instructions Nola Galeas DO - 10/02/2023 9:30 AM EDT See me again in 4 months for Annual Physical. Get blood test after fasting close to next visit. documented in this encounter [facility] Work Phone: 03-27-2023 History of Present illness Narrative Subjective Hayde Carmona is a 52 y.o. female who presents for Annual Physical. She had a mammogram 03/13 that was normal We updated her family history. Her father had just last year. She is taking the hydrochlorothiazide fairly consistenly She does not noting much urinary frequency at all Review of Systems HENT: Negative for hearing loss. Respiratory: Negative for cough and shortness of breath. Cardiovascular: Negative for chest pain. Gastrointestinal: Positive for constipation. Negative for diarrhea. Genitourinary: Negative for dysuria and hematuria. Neurological: Negative for headaches. Objective BP 110/80 (BP Location: Left arm, Patient Position: Sitting, BP Cuff Size: Adult) Pulse 70 Resp 16 Ht 1.651 m (5' 5) Wt 67.9 kg (149 lb 12.8 oz) BMI 24.93 kg/m Physical Exam Visit Vitals BP 110/80 (BP Location: Left arm, Patient Position: Sitting, BP Cuff Size: Adult) Pulse 70 Resp 16 Ht 1.651 m (5' 5) Wt 67.9 kg (149 lb 12.8 oz) BMI 24.93 kg/m Smoking Status Former BSA 1.76 m Repeat bp was 110/80 GEN: NAD HEENT: normal NECK: no adenopathy, no thyroid enlargment LUNGS: CTAB CV: reg S1/S2 no murmurs Abdomen: Soft. Nontender. No mass or organomegaly. EXT: no leg edema Assessment/Plan Problem List Items Addressed This Visit None Visit Diagnoses Screening for colon cancer - Primary Relevant Orders Cologuard colon cancer screening Encounter for preventative adult health care examination she is doing well overall. We will enter lab order to follow-up on CMP and lipid profile. Also discussed colon cancer screening and she agrees to do Cologuard screening. Discussed that this test should be repeated every 3 years to continue screening for colon cancer. Her blood pressure seems to be under better control. She mention she had been checking it at home and states that her numbers are usually between 120-130 over 80s. She should see me again in August for follow-up on her hypertension. documented in this encounter [facility] Work Phone: 03-27-2023 Instructions Nola Galeas DO - 03/27/2023 10:15 AM EDT Get blood test done after fasting. Can drop of the form here at any time. See me again in August for follow up . documented in this encounter [facility] Work Phone: 11-26-2022 History of Present illness Narrative Subjective Hayde Carmona is a 52 y.o. female who presents for Hypertension She is on cigna now Had been out of her med for about 3 months She had been checking her blood pressure at home and they had been ok, even when off the med Review of Systems She has been taking tums every night Has a persistent aching in her chest , in between her breasts Gets worse after eating, flares more at night She has been having some nausea but was her period No short of breath, no chest heaviness, no palpitations. Objective BP 140/90 (BP Location: Left arm, Patient Position: Sitting, BP Cuff Size: Large adult) Pulse 76 Ht 1.651 m (5' 5) Wt 70.8 kg (156 lb) BMI 25.96 kg/m Physical Exam Visit Vitals BP 140/90 (BP Location: Left arm, Patient Position: Sitting, BP Cuff Size: Large adult) Pulse 76 Ht 1.651 m (5' 5) Wt 70.8 kg (156 lb) BMI 25.96 kg/m Smoking Status Former BSA 1.8 m GEN: NAD HEENT: normal NECK: no adenopathy, no thyroid enlargment LUNGS: CTAB CV: reg S1/S2 no murmurs EXT: no leg edema Assessment/Plan Problem List Items Addressed This Visit Benign hypertension - Primary : resume hydrochlorothiazide 12. 5. rX #90/1 refill sent. Gastroesophageal reflux disease without esophagitis: take omeprazole 20 mg OTC, one daily for at least 2 weeks in a row. OK to take it regularly if it helps symptoms. Re-assess in 4 mo. Annual physical 4 mo; NO PAP. Call to schedule mammogram. Discuss Cologuard at annual physical. Inform about labs. documented in this encounter [facility] Work Phone: 11-26-2022 Instructions Nola Galeas DO - 11/26/2022 10:45 AM EDT Begin taking Omeprazole (prilosec) 20 mg one daily before evening meal. Restart your bp med. See me again in 4 months. documented in this encounter [facility] Work Phone: 05-19-2022 Note 29 Date of Procedure: 05/19/2022 Pathologist: [facility], Cytology Date Reported: 05/30/2022 Date Received: 05/19/2022 Submitting Physician: NOLA GALEAS, FINAL CYTOLOGICAL INTERPRETATION A. THINPREP PAP CERVICAL: Specimen Adequacy: SPECIMEN PROCESSED AND EXAMINED, BUT UNSATISFACTORY FOR EVALUATION OF EPITHELIAL ABNORMALITY BECAUSE OF PAUCITY OF CELLULARITY. NO INTERPRETATION GIVEN. REPEAT STUDY/FURTHER INVESTIGATION IS SUGGESTED - CERVIX. Note: Paucity of cellularity is caused by an interfering lubricant present at time of Pap test collection. HIGH RISK HPV TEST RESULT: HPV GENOTYPE 16 NEGATIVE HPV GENOTYPE 18 NEGATIVE HPV GENOTYPE OTHER NEGATIVE Reference Range: Negative QC review performed at [facility], [address] [place] [id number] Testing for high-risk (HR) type of human papilloma virus (HPV) is performed by the Aze[employer] raven HPV Test. The raven HPV Test is a qualitative polymerase chain reaction that amplifies DNA of HPV16, HPV18 and 12 other high-risk HPV types (31, 33, 35, 39, 45, 51, 52, 56, 58, 59, 66, and 68) associated with cervical cancer and its precursor lesions. A positive result indicates the presence of HPV DNA due to one or more of the 14 genotypes: 16, 18, 31, 33, 35, 39, 45, 51, 52, 56, 58, 59, 66, and 68. Negative results indicate HPV DNA concentrations are undetectable or below the pre-set threshold for detection. False negative results may be associated with unoptimized sampling. A negative HR HPV result does not exclude the possibility of future cytologic HSIL or underlying CIN2-3 or cancer. This test is approved for cervical specimens by the US Food and Drug Administration. Results of this test should be interpreted in conjunction with the patient?s Pap test results. Please refer to ASCCP current guidelines for the use of HPV DNA testing, result interpretation, and patient management. The performance of this test was verified by the [facility] Laboratory at [facility]. The lab is certified under the Clinical Laboratory Amendments of 1988 (CLIA 88) as qualified to perform high complexity clinical laboratory testing. This specimen has been analyzed by the [employer] System ([employer] an automated imaging and review system, which assists the laboratory in evaluating cells on ThinPrep Pap tests. Following automated imaging, selected pino from every slide were reviewed by a internal carver and/or pathologist. Electronically Signed Out By [facility], Cytology//TFP/LSM By the signature on this report, the individual or group listed as making the Final Interpretation/Diagnosis certifies that they have reviewed this case. Diagnostic interpretation performed at [facility] [address] [place] [address] Educational Note: Cervical cytology is a screening procedure primarily for squamous cancers and precursors and has associated false-negative and false-positive results as evidenced by published data. Your patient?s test should be interpreted in this context, together with patient?s history and clinical findings. Regular sampling and follow-up of unexplained clinical signs and symptoms are recommended to minimize false negative results. Clinical History Date of Last Menstrual Period: 02/27/2022 Other Clinical Conditions: COTEST HPV(Genotype) except for ASC-H, HSIL, Carcinoma - Include HPV Genotype testing Source of Specimen A: THINPREP PAP CERVICAL [facility] Department of Pathology [id number] [place] [address] Comment on above: Performed By: #### C #### [facility] Cytology [address] [place] [address] 05-19-2022 Note Orders Encounter for immunization Temporarily Stop: Flulaval Quadrivalent 0.5 ML Intramuscular Suspension Prefilled Syringe For: Encounter for immunization; Ordered By:Nola Galeas; Effective Date:19May2022; Last Updated By: Ana Greenfield; 05/19/2022 10:09:22 AM Patient Discussion/Summary See me again in September to follow up on blood presure. Chief Complaint Annual. Pt declines a flu shot. AC History of Present IllnessSHE HAD ASCUS but neg HPV so today is repeat pap she just got blood test done today Review of Systems ENT: no hearing loss. Cardiovascular: no chest pain and no palpitations. Respiratory: no shortness of breath during exertion. Gastrointestinal: no constipation and no diarrhea. Genitourinary: no incontinnece, but no dysuria. Neurological: no headache. Active Problems Problems Abnormal EKG (794.31) (R94.31) Acute myofascial strain of lumbar region, initial encounter (847.2) (S39.012A) Acute non-recurrent maxillary sinusitis (461.0) (J01.00) Acute UTI (599.0) (N39.0) Anemia (285.9) (D64.9) Arthralgia of toe of left foot (719.47) (M25.572) Benign hypertension (401.1) (I10) Cervical cancer screening (V76.2) (Z12.4) Chest pain (786.50) (R07.9) Dysuria (788.1) (R30.0) Elevated blood pressure reading without diagnosis of hypertension (796.2) (R03.0) Encounter for screening for cardiovascular disorders (V81.2) (Z13.6) Encounter for screening mammogram for breast cancer (V76.12) (Z12.31) Exposure to COVID-19 virus (V01.79) (Z20.822) Exposure to TB (V01.1) (Z20.1) Hematuria (599.70) (R31.9) Hip pain, right (719.45) (M25.551) History of bilateral breast implants (V43.82) (Z98.82) 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 Normal coronary anatomy without evidence of atherosclerotic changes or stenotic disease. History of echocardiogram (V15.89) (Z92.89) [01/08/2021]: Normal Echocardiogram. The left ventricular systolic function is normal with a 55-60% estimated ejection fraction. Normal cardiac chamber dimensions. Surgical History Problems History of Breast Surgery Enlargement Procedure Bilateral 1999. History of Cervical Loop Electrosurgical Excision (LEEP) History of Corneal LASIK Bilateral History of Nasal Septal Deviation Repair History of Tonsillectomy Family History Mother Family history of chronic obstructive pulmonary disease (V17.6) (Z82.5) Family history of Mini stroke Family history of Pituitary tumor Father Family history of Benign hypertension Family history of Pituitary tumor Brother Family history of Benign hypertension Paternal Grandmother Family history of malignant neoplasm of uterus (V16.49) (Z80.49) Social History Problems Former smoker (V15.82) (Z87.891) smoked a half a pack a day for 3 years. quit 1994. Allergies Medication No Known Drug Allergies Recorded By: Didi Sanabria; 08/28/2016 2:14:28 PM Current Meds Medication NameInstruction hydroCHLOROthiazide 12.5 MG Oral CapsuleTAKE ONE CAPSULE BY MOUTH EVERY DAY. Multi-Vitamin TABS Tretinoin 0.05 % External Creamapply as directed BY PHYSICIAN Vitals Vital Signs Recorded: 19May2022 11:28AMRecorded: 19May2022 09:59AM PHQ-2 #1. Over the last 2 weeks have you felt down, depressed or hopeless? (If yes, answer PHQ-9 below)No PHQ-2 #2. Over the last 2 weeks have you felt little interest or pleasure in doing things? (If yes, answer PHQ-9 below)No Heart Rate73 Kkyvukye765 Ykoveiqqo08 Height5 ft 5 in Lznxrn100 lb BMI Dmzyahekxo54.13 kg/m2 BSA Calculated1.78 'Scores and Scales' Signatures Electronically signed by : Nola Galeas DO; May 29 2022 10:37PM EST (Author) [employer] 12-06-2021 History of Present illness Narrative Patient is a 51-year-old female with chief complaint of burning and frequency with urination since 1500 today. Patient also reports seeing blood in her urine. Patient states her current symptoms are similar to previously diagnosed UTIs. Patient states her last diagnosed UTI was September 2021. Patient denies any fevers or chills. Patient denies any nausea, vomiting, diarrhea or constipation. Patient denies any coughs, wheezing, chest pain or shortness of breath. Patient denies any uwot-lus-nsspxns medication. [facility] Work Phone: 12-04-2021 History of Present illness Narrative Patient is a 51-year-old female with chief complaint of burning and frequency with urination since 1500 today. Patient also reports seeing blood in her urine. Patient states her current symptoms are similar to previously diagnosed UTIs. Patient states her last diagnosed UTI was September 2021. Patient denies any fevers or chills. Patient denies any nausea, vomiting, diarrhea or constipation. Patient denies any coughs, wheezing, chest pain or shortness of breath. Patient denies any gszv-wrx-sjvrlbj medication. [facility] Work Phone: 09-27-2021 History of Present illness Narrative She has not had any UTI symptoms since October.from August to October [facility] and once in November several episodes with gross hematuriaShe had twice been given cephalexin.She is not having any burning or pain with urinationShe has not noticed any hematuria since her last episode from the urgent careShe denies lower abdominal pain or pressure. Denies any loss of urinary continence.she has gotten herself into a routine with taking her HCTZbp is very good todayshe has been checking her bp at home 120-130 / 90'sshe denies any side effects from hctzno chest painno sobShe has no leg edema -[facility] Work Phone: 08-31-2021 History of Present illness Narrative Patient is a 51-year-old female with chief complaint of urinary symptoms that began today. Patient reports that she has burning and frequency with urnination, and has seen some blood. Patient reports that she was seen for similar difficulties 1 month ago and treated with Cipro at a different urgent care. Patient denies any fevers or chills. Patient denies any cough, wheezing, chest pain or shortness of breath. Patient denies any nausea, vomiting, diarrhea or constipation. [facility] Work Phone: 08-29-2021 History of Present illness Narrative Patient is a 51-year-old female with chief complaint of urinary symptoms that began today. Patient reports that she has burning and frequency with urnination, and has seen some blood. Patient reports that she was seen for similar difficulties 1 month ago and treated with Cipro at a different urgent care. Patient denies any fevers or chills. Patient denies any cough, wheezing, chest pain or shortness of breath. Patient denies any nausea, vomiting, diarrhea or constipation. [facility] Work Phone: 08-27-2021 History of Present illness Narrative 51-year-old female presents with 6 hours of initially feeling hot and cold with some nausea that quickly resolved then was followed by dysuria urinary urgency, and some gross hematuria. She not had any stomach or back pain, no vaginal discharge or symptoms. Still having regular menstrual cycles, no new sexual partners.Of note:-was seen by an outside clinic in early August for UTI symptoms, treated with Cipro. No culture was done-Was also seen here September 29 for UTI symptoms and abnormal UA she was treated with Macrobid but her urine culture was negative [facility] Work Phone: 08-27-2021 History of Present illness Narrative no UTI since August to October she had been goign to [facility] no[facility]mber she has not had symptohas not had visible hematuria since then; she had had gross hematuria with other visitsshe has gotten herself into a routine iwht her HCTZbp is very good todayshe has been checking her bp at home 120-130 / 90'sshe denies any side effects from hctzno chest painno sob [facility]: 08-27-2021 History of Present illness Narrative no UTI since August to October she had been goign to [facility] november she has not had symptohas not had visible hematuria since then; she had had gross hematuria with other visitsshe has gotten herself into a routine iwht her HCTZbp is very good todayshe has been checking her bp at home 120-130 / 90'sshe denies any side effects from hctzno chest painno sob [facility] Work [facility]: 04-27-2021 History of Present illness Narrative here for annualshe had covid a month agoshe took a home test that was positiveshe had some fever and loss of taste and smell with headachehas a lingering cough and phlegm but is not problematicshe says that she has not yet picked up her bp medsshe has had no changes in family or surgical historyshe does have chronic constipation that has not changedshe is still having regular menstrual periodsthey are not overly heavy [facility] [place] [address] Work Phone: 01-17-2021 History of Present illness Narrative 01/17/2021: Office visitPatient presents to clinic for follow-up appointment. She has not had much in way of chest discomfort or shortness of breath. She recent underwent coronary CTA which showed normal coronary anatomy without evidence of obstructive coronary arterial disease. There was no evidence of plaque buildup. She also underwent echocardiogram showed normal ejection fraction 55 to 60% without significant valvular pathology. She tries to monitor her blood pressure at home which is typically less than 130/80. In clinic today her vital signs are notable for blood pressure 137 wrists 86 and a heart rate of 87 satting 97% on room air. Her weight is 150 pounds.12/18/2020This is a 50-year-old female without significant past medical history was referred to clinic for evaluation of chest pain. Patient states that several weeks ago she had episode of chest discomfort that lasted several days. She described the pain as nonradiating substernal tightness not associated with shortness of breath. The pain lasted for about 4 days. She eventually went to the ED for evaluation. Her work-up was fairly benign. She was sent for stress test however this was denied by insurance. Today she denies any chest pain or shortness of breath or palpitations. She not had any events since that time. She does not smoke or drink heavily. She does have some family history in terms of her mother having blockages however does not appear that she has had stenting or CABG in the past. She has had some high blood pressure she was started on metoprolol succinate. She states that since she has been on metoprolol succinate she is experience some brain fog or fatigue as result.In clinic today her vital signs over for blood pressure 157/83, heart rate is 77, 100% on room air. Her weight is 154 pounds. [facility] [place] Work Phone: 12-18-2020 History of Present illness Narrative 12/18/2020: Office visitThiottoniel is a 50-year-old female without significant past medical history was referred to clinic for evaluation of chest pain. Patient states that several weeks ago she had episode of chest discomfort that lasted several days. She described the pain as nonradiating substernal tightness not associated with shortness of breath. The pain lasted for about 4 days. She eventually went to the ED for evaluation. Her work-up was fairly benign. She was sent for stress test however this was denied by insurance. Today she denies any chest pain or shortness of breath or palpitations. She not had any events since that time. She does not smoke or drink heavily. She does have some family history in terms of her mother having blockages however does not appear that she has had stenting or CABG in the past. She has had some high blood pressure she was started on metoprolol succinate. She states that since she has been on metoprolol succinate she is experience some brain fog or fatigue as result.In clinic today her vital signs over for blood pressure 157/83, heart rate is 77 700% on room air. Her weight is 154 pounds. [facility] [place] Work Phone: Evaluation note Diagnosis Benign hypertension- Primary Essential hypertension, benign Gastroesophageal reflux disease without esophagitis Esophageal reflux Visit for screening mammogram documented in this encounter [facility] Work Phone: Evaluation note* Diagnosis Screening for colon cancer- Primary Special screening for malignant neoplasms, colon Encounter for preventative adult health care examination documented in this encounter [facility] Work Phone: Evaluation note* Diagnosis Benign hypertension- Primary Essential hypertension, benign Routine adult health maintenance documented in this encounter [facility] Work Phone: Evaluation note* Diagnosis Visit for screening mammogram- Primary Routine adult health maintenance Benign hypertension Essential hypertension, benign documented in this encounter [facility] Work Phone: Evaluation note* Diagnosis Visit for screening mammogram documented in this encounter [facility] Work Phone: Evaluation noteNo assessment information available [facility] Work Phone: Evaluation note* Diagnosis Chronic rhinitis Deviated nasal septum Hypertrophy of nasal turbinates [facility] She saw Dr. Cheatham from cardiology. He ordered a CT angiography which did not show any coronary artery disease. * cardio switched her from metoprolol to HCTZ * she admits she has been spotty with taking it * she does not feel she's having any negative side effects from it, she just cant remember it * says she was the same way with control pills. * no chest pain * no headaches * no palpitations [facility] Work [facility]: History of Present illness Narrative* She saw Dr. Cheatham from cardiology. He ordered a CT angiography which did not show any coronary artery disease. * cardio switched her from metoprolol to HCTZ * she admits she has been spotty with taking it * she does not feel she's having any negative side effects from it, she just cant remember it * she says that she was the same way with control pills. * no chest pain * no headaches * no palpitations -[facility] Work Phone: History of Present illness Narrative* SHE HAD ASCUS but neg HPV so today is repeat pap * she just got blood test done today [facility] Work Phone: Reason for referral (narrative)No reason for referral information availableWSelect [facility] Work Phone: Reason for visit Narrative* Imaging (Routine) - Authorized Specialty Diagnoses / Procedures Referred By Sultana ngo Referred To Contact Radiology Diagnoses Visit for screening mammogram Procedures BI mammo bilateral screening tomosynthesis Nola Galeas, [address] [facility], [address] [place] [address] Phone: tel: fax: Referral ID Status Reason Start Date Expiration Date Visits Requested Visits Authorized [id number] Authorized Perform Procedure 04/01/2024 04/01/2025 1 1 [facility] Work Phone: Reason for visit Narrative* Imaging (Routine) - Closed Specialty Diagnoses / Procedures Referred By Contac t Referred To Contact Radiology Diagnoses Chronic rhinitis Deviated nasal septum Hypertrophy of nasal turbinates Procedures CT maxillofacial wo IV contrast Vj Whitting[place], [address] [facility] [address] [place] [address] Phone: tel: fax: Referral ID Status Reason Start Date Expiration Date Visits Re quested Visits Authorized [id number] Closed 03/31/2025 03/31/2026 1 1 [facility] Summary Purpose Family History No Family History Records FoundUnknown Family Member Name Dates Details Mini stroke: Mother Status:Active Family history of chronic ob structive pulmonary disease: Mother(V17.6, Z82.5) Status:Active Benign hypertension: Father, Brother Status:Active Family history of malignant neoplasm of uterus: Paternal Grandmother(V16.49, Z80.49) Status:Active Pituitary tumor: Mother, Fat her Status:Active Unknown Family Member Name Dates Details Pituitary tumor: Mother, Fat her Status:Active Family history of malignant neoplasm of uterus: Paternal Grandmother(V16.49, Z80.49) Status:Active Benign hypertension: Father, Brother Status:Active Family history of chronic ob structive pulmonary disease: Mother(V17.6, Z82.5) Status:Active Mini stroke: Mother Status:Active Unknown Family Member Name Dates Details Mini stroke: Mother Status:Active Family history of chronic ob structive pulmonary disease: Mother(V17.6, Z82.5) Status:Active Benign hypertension: Father, Brother Status:Active Family history of malignant neoplasm of uterus: Paternal Grandmother(V16.49, Z80.49) Status:Active Pituitary tumor: Mother, Fat her Status:Active Unknown Family Member Name Dates Details Mini stroke: Mother Status:Active Family history of chronic ob structive pulmonary disease: Mother(V17.6, Z82.5) Status:Active Benign hypertension: Father, Brother Status:Active Family history of malignant neoplasm of uterus: Paternal Grandmother(V16.49, Z80.49) Status:Active Pituitary tumor: Mother, Fat her Status:Active Unknown Family Member Name Dates Details Mini stroke: Mother Status:Active Family history of chronic ob structive pulmonary disease: Mother(V17.6, Z82.5) Status:Active Benign hypertension: Father, Brother Status:Active Family history of malignant neoplasm of uterus: Paternal Grandmother(V16.49, Z80.49) Status:Active Pituitary tumor: Mother, Fat her Status:Active Unknown Family Member Name Dates Details Mini stroke: Mother Status:Active Family history of chronic ob structive pulmonary disease: Mother(V17.6, Z82.5) Status:Active Benign hypertension: Father, Brother Status:Active Family history of malignant neoplasm of uterus: Paternal Grandmother(V16.49, Z80.49) Status:Active Pituitary tumor: Mother, Fat her Status:Active Unknown Family Member Name Dates Details Mini stroke: Mother Status:Active Family history of chronic ob structive pulmonary disease: Mother(V17.6, Z82.5) Status:Active Benign hypertension: Father, Brother Status:Active Family history of malignant neoplasm of uterus: Paternal Grandmother(V16.49, Z80.49) Status:Active Pituitary tumor: Mother, Fat her Status:Active Unknown Family Member Name Dates Details Mini stroke: Mother Status:Active Family history of chronic ob structive pulmonary disease: Mother(V17.6, Z82.5) Status:Active Benign hypertension: Father, Brother Status:Active Family history of malignant neoplasm of uterus: Paternal Grandmother(V16.49, Z80.49) Status:Active Pituitary tumor: Mother, Fat her Status:Active Unknown Family Member Name Dates Details Mini stroke: Mother Status:Active Family history of chronic ob structive pulmonary disease: Mother(V17.6, Z82.5) Status:Active Benign hypertension: Father, Brother Status:Active Family history of malignant neoplasm of uterus: Paternal Grandmother(V16.49, Z80.49) Status:Active Pituitary tumor: Mother, Fat her Status:Active Unknown Family Member Name Dates Details Mini stroke: Mother Status:Active Family history of chronic ob structive pulmonary disease: Mother(V17.6, Z82.5) Status:Active Benign hypertension: Father, Brother Status:Active Family history of malignant neoplasm of uterus: Paternal Grandmother(V16.49, Z80.49) Status:Active Pituitary tumor: Mother, Fat her Status:Active Unknown Family Member Name Dates Details Family history of malignant neoplasm of uterus: Paternal Grandmother(V16.49, Z80.49) Status:Active Benign hypertension: Father, Brother Status:Active Family history of chronic ob structive pulmonary disease: Mother(V17.6, Z82.5) Status:Active Mini stroke: Mother Status:Active Pituitary tumor: Mother, Fat her Status:Active Unknown Family Member Name Dates Details Mini stroke: Mother Status:Active Family history of chronic ob structive pulmonary disease: Mother(V17.6, Z82.5) Status:Active Benign hypertension: Father, Brother Status:Active Family history of malignant neoplasm of uterus: Paternal Grandmother(V16.49, Z80.49) Status:Active Pituitary tumor: Mother, Fat her Status:Active Unknown Family Member Name Dates Details Mini stroke: Mother Status:Active Family history of chronic ob structive pulmonary disease: Mother(V17.6, Z82.5) Status:Active Benign hypertension: Father, Brother Status:Active Family history of malignant neoplasm of uterus: Paternal Grandmother(V16.49, Z80.49) Status:Active Pituitary tumor: Mother, Fat her Status:Active Unknown Family Member Name Dates Details Mini stroke: Mother Status:Active Family history of chronic ob structive pulmonary disease: Mother(V17.6, Z82.5) Status:Active Benign hypertension: Father, Brother Status:Active Family history of malignant neoplasm of uterus: Paternal Grandmother(V16.49, Z80.49) Status:Active Pituitary tumor: Mother, Fat her Status:Active Unknown Family Member Name Dates Details Mini stroke: Mother Status:Active Family history of chronic ob structive pulmonary disease: Mother(V17.6, Z82.5) Status:Active Benign hypertension: Father, Brother Status:Active Family history of malignant neoplasm of uterus: Paternal Grandmother(V16.49, Z80.49) Status:Active Pituitary tumor: Mother, Fat her Status:Active Unknown Family Member Name Dates Details Mini stroke: Mother Status:Active Family history of chronic ob structive pulmonary disease: Mother(V17.6, Z82.5) Status:Active Benign hypertension: Father, Brother Status:Active Family history of malignant neoplasm of uterus: Paternal Grandmother(V16.49, Z80.49) Status:Active Pituitary tumor: Mother, Fat her Status:Active Unknown Family Member Name Dates Details Mini stroke: Mother Status:Active Family history of chronic ob structive pulmonary disease: Mother(V17.6, Z82.5) Status:Active Benign hypertension: Father, Brother Status:Active Family history of malignant neoplasm of uterus: Paternal Grandmother(V16.49, Z80.49) Status:Active Pituitary tumor: Mother, Fat her Status:Active Unknown Family Member Name Dates Details Pituitary tumor: Mother, Fat her Status:Active Mini stroke: Mother Status:Active Family history of chronic ob structive pulmonary disease: Mother(V17.6, Z82.5) Status:Active Benign hypertension: Father, Brother Status:Active Family history of malignant neoplasm of uterus: Paternal Grandmother(V16.49, Z80.49) Status:Active Unknown Family Member Name Dates Details Mini stroke: Mother Status:Active Family history of chronic ob structive pulmonary disease: Mother(V17.6, Z82.5) Status:Active Benign hypertension: Father, Brother Status:Active Family history of malignant neoplasm of uterus: Paternal Grandmother(V16.49, Z80.49) Status:Active Pituitary tumor: Mother, Fat her Status:Active Unknown Family Member Name Dates Details Mini stroke: Mother Status:Active Family history of chronic ob structive pulmonary disease: Mother(V17.6, Z82.5) Status:Active Benign hypertension: Father, Brother Status:Active Family history of malignant neoplasm of uterus: Paternal Grandmother(V16.49, Z80.49) Status:Active Pituitary tumor: Mother, Fat her Status:Active Unknown Family Member Name Dates Details Mini stroke: Mother Status:Active Family history of chronic ob structive pulmonary disease: Mother(V17.6, Z82.5) Status:Active Benign hypertension: Father, Brother Status:Active Family history of malignant neoplasm of uterus: Paternal Grandmother(V16.49, Z80.49) Status:Active Pituitary tumor: Mother, Fat her Status:Active Unknown Family Member Name Dates Details Family history of malignant neoplasm of uterus: Paternal Grandmother(V16.49, Z80.49) Status:Active Benign hypertension: Father, Brother Status:Active Family history of chronic ob structive pulmonary disease: Mother(V17.6, Z82.5) Status:Active Mini stroke: Mother Status:Active Pituitary tumor: Mother, Fat her Status:Active Unknown Family Member Name Dates Details Family history of malignant neoplasm of uterus: Paternal Grandmother(V16.49, Z80.49) Status:Active Benign hypertension: Father, Brother Status:Active Family history of chronic ob structive pulmonary disease: Mother(V17.6, Z82.5) Status:Active Mini stroke: Mother Status:Active Pituitary tumor: Mother, Fat her Status:Active Advance Directives No Advanced Directives Records FoundNo Advanced Directives Records FoundNo Advanced Directives Records FoundNo Advanced Directives Records FoundNo Advanced Directives Records FoundNo Advanced Directives Records FoundNo Advanced Directives Records FoundNo Advanced Directives Records FoundNo Advanced Directives Records FoundNo Advanced Directives Records FoundNo Advanced Directives Records FoundNo Advanced Directives Records Found Chief Complaint Chest pain* Annual physical. * BN Follow up visit for hypertension management. ACFollow up visit for hypertension management. ACfollow up visit for hypertension management. ACfollow up visit for hypertension management. ACfollow up visit for hypertension management. AC Annual. Pt declines a flu shot. AC Reason for Referral Specialty Diagnoses / Procedures Referred By Contowen t Referred To Contact Radiology Diagnoses Visit for screening mammogram Procedures BI mammo bilateral screening tomosynthesis Nola Galeas, [address] [facility], [place] [address] Referral ID Status Reason Start Date Expiration Date Visits Requested Visits Authorized [id number] Authorized Perform Procedure 11/26/2022 05/25/2023 1 1 Referral ID Status Reason Start Date Expiration Date Visits Requested Visits Authorized [id number] Authorized Perform Procedure 04/01/2024 04/01/2025 1 1 Chief Complaint and Reason for Visit Chief Complaint Admit Date SEE ORDER September 16, 2024 2:1 2pm Chief Complaint Admit Date CHRONIC HEADACHES January 27, 2025 1:2 2pm Additional Source Comments INFORMATION SOURCE (unrecogn ized section and content) DATE CREATED AUTHOR 12/17/2017 [facility] DATE CREATED AUTHOR AUTHOR'S ORGANIZ ATION 08/11/2019 [facility] DATE CREATED AUTHOR AUTHOR'S ORGANIZ ATION 09/25/2020 [facility] DATE CREATED AUTHOR AUTHOR'S ORGANIZ ATION 01/15/2021 [facility] DATE CREATED AUTHOR AUTHOR'S ORGANIZ ATION 05/30/2022 [facility] DATE CREATED AUTHOR AUTHOR'S ORGANIZ ATION 05/31/2022 [facility] DATE CREATED AUTHOR AUTHOR'S ORGANIZ ATION 03/21/[address] [facility] DATE CREATED AUTHOR AUTHOR'S ORGANIZ ATION 04/26/2024 [facility] DATE CREATED AUTHOR AUTHOR'S ORGANIZ ATION 05/23/2024 [facility] DATE CREATED AUTHOR AUTHOR'S ORGANIZ ATION 11/25/2024 [facility] DATE CREATED AUTHOR AUTHOR'S ORGANIZ ATION 04/13/2025 [facility] DATE CREATED AUTHOR AUTHOR'S ORGANIZ ATION 05/09/2025 [facility] Reason for Visit (unrecogniz ed section and content) Reason Comments Hypertension Reason Comments Follow-up Reason Comments Follow-up Pt here for hyperten meera follow up. Reason Comments Annual Exam Care Teams (unrecognized sec tion and content) Dermatology Specialist Relationship Specialty Start Date End Date Nola Galeas DO [address] [facility], [address] [address] PCP - General 04/23/17 Nola Galeas DO [address] [facility], [address] [address] PCP - [employer] PCP 06/29/21 Dermatology Specialist Relationship Specialty Start Date End Date Nola Galeas DO [address] [facility], [address] [address] PCP - General 04/23/17 Nola Galeas DO [address] [facility], [address] [address] PCP - [employer] PCP 06/29/21 Dermatology Specialist Relationship Specialty Start Date End Date Nola Galeas DO [address] [facility], [address] [place] [address] PCP - General 04/23/17 Nola Galeas DO [address] [facility], [facility] [address] [place] [address] PCP - [employer] PCP 06/29/21 Dermatology Specialist Relationship Specialty Start Date End Date Nola Galeas DO [address] [facility], [facility] [address] [place] [address] PCP - General 04/23/17 Nola Galeas DO [address] [facility], [address] [address] PCP - [employer] PCP 06/29/21 Dermatology Specialist Relationship Specialty Start Date End Date Nola Galeas DO [address] [facility], [facility] [address] [place] [address] PCP - General 04/23/17 Nola Galeas DO [address] [facility], [address] [address] PCP - [employer] PCP 06/29/21 Team Status: Active Member Role Status Dates Dr. Richi Rodriguez DO Primary Care Provider Active Team Status: Inactive Member Role Status Dates Dr. Richi Rodriguez DO Primary Care Provider Active Start: September 16, 2024 End: September 16, 2024 Dr. Richi Rodriguez DO Attending Provider Active St art: September 16, 2024 End: September 16, 2024 Dr. Richi Rodriguez DO Referring Provider Active St art: September 16, 2024 End: September 16, 2024 Team Status: Active Member Role/Relationship Status Dates Dr. Richi Rodriguez DO Primary Care Provider Active Team Status: Inactive Member Role/Relationship Status Dates Dr. Richi Rodriguez DO Primary Care Provider Active Start: January 27, 2025 End: January 27, 2025 Dr. Richi Rodriguez DO Attending Provider Active St art: January 27, 2025 End: January 27, 2025 Dr. Richi Rodriguez DO Referring Provider Active St art: January 27, 2025 End: January 27, 2025 Dermatology Specialist Relationship Specialty Start Date End Date Richi Rodriguez DO [address] [place] [address] PCP - General Internal Medicine 04/06/25 Goals (unrecognized section and content) Goals may be documented in a n alternate sectionGoals may be documented in an alternate section FOR RECORDS PERTAINING TO PATIENTS WHO ARE OR HAVE BEEN ENROLLED IN A CHEMICAL DEPENDENCY/SUBSTANCEABUSE PROGRAM, SOME INFORMATION MAY BE OMITTED. This clinical summary was aggregated from multiple sources. Caution should be exercised in using it in the provision of clinical care. This summary normalizes information from multiple sources, and as a consequence, information in this document may materially change the coding, format and clinical context of patient data. In addition, data may be omitted in some cases. CLINICAL DECISIONS SHOULD BE BASED ON THE PRIMARY CLINICAL RECORDS. [employer] provides no warranty or guarantee of the accuracy or completeness of information in this document.
[2025-06-20 17:55] LABS: Hematocrit 40.2 % (37-47); Hemoglobin 13.4 g/dL (12.0-15.0); Immature Granulocytes Count 0.010 X10^3/uL (0.0-0.0); Mean Corp Hgb Conc 33.3 g/dL (32-36); Mean Corpuscular Volume 92.8 fL (81-99); Mean Platelet Vol. 8.8 fl (6.2-12.0); NRBC Flagged by Analyzer 0 % (0-5); Platelet Count 318 K/mm3 (150-450); RBC Distribution Width CV 12.3 % (11.6-14.6); RBC Distribution Width SD 42.6 fl (35.1-43.9); Red Blood Count 4.33 M/mm3 (4.2-5.4); White Blood Count 6.6 K/mm3 (4.4-11.0)
[2025-06-20 18:07] LABS: AST(SGOT) 26 U/L (<=31); Alanine Aminotransfer ALT/SGPT 15 U/L (<=34); Albumin, Serum 4.5 g/dL (3.5-5.0); Alkaline Phosphatase 47 U/L (35-104); Anion Gap 9 (7-18); BUN 18 mg/dL (4-19); BUN/Creat Ratio 27.7 RATIO (10-20); Calcium,Total 9.3 mg/dL (7.6-11.0); Carbon Dioxide 27.8 mmol/L (20.0-29.0); Chloride 102 mmol/L (96-106); Globulin 2.2 g/dL (2.2-4.2); Glucose 90 mg/dL (70-99); Potassium 3.6 mmol/L (3.5-5.1)
== END | disposition home or self-care (01) ==
LOC: CIMLAB 15:41
PROVIDERS: PCP Internal Medicine; Referring Provider Internal Medicine; Visit Provider Internal Medicine
DX: I10 Essential (primary) hypertension (principal)
CPT/HCPCS: 36415; 80053; 85025